=== PATIENT | male | born 1935 | race Caucasian/White ===

== ENCOUNTER 2022-09-13 19:37 | Outpatient (CLI) | payer BC, SELFPAY | END 2022-09-13 19:38 | disposition home or self-care (01) | LOC: AMB 10-05 17:37 | PROVIDERS: PCP Surgery; Visit Provider Emergency Medicine Emergency Medical Services | DX: R50.9 Fever, unspecified (principal); R06.09 Other forms of dyspnea | CPT/HCPCS: A0425; A0427 ==

== ENCOUNTER 2022-09-13 21:17 | Inpatient (IN) | payer BC, SELFPAY ==
[2022-09-13 21:26] VITALS: BP 142/113; PULSE 110; RESP 18; TEMP 37.9; O2SAT 93; BMI 37.9
--- NOTE | 2022-09-13 21:54 | CRLHL7_ITS ---
For Patients: As a result of the Century Cures Act, medical imaging exams and procedure reports are released immediately into your electronic medical record. You may view this report before your referring provider. If you have questions, please contact your health care provider. INDICATION: Cough. TECHNIQUE: Chest 2 views. COMPARISON: Chest x-ray from 08/11/2017. FINDINGS: Lungs: Clear lungs. No consolidation. Pleura: No pleural effusion or pneumothorax. Heart and Mediastinum: The cardiomediastinal silhouette is normal. The vessels are unremarkable. Stable dual lead pacemaker with its battery pack in the left chest wall. Bones: Unremarkable. IMPRESSION: No acute cardiopulmonary disease. Dictated by Moses Hooks MD @ 09/13/2022 10:53:13 PM (Electronically Signed)
[2022-09-13 22:16] VITALS: O2SAT 95
[2022-09-13 22:18] LABS: PCR FLU A Negative PCR FLU A (Negative); PCR FLU B Negative PCR FLU B (Negative); PCR RSV Negative PCR RSV (Negative)
[2022-09-13 22:19] LABS: SARS PCR* Negative SARS-CoV-2 (Negative)
[2022-09-13 22:20] LABS: Lactate* 4.9 mmol/L (0.5-1.9)
--- NOTE | 2022-09-13 22:20 | ED.NURSE ---
reister updated on lactate 4.9
[2022-09-13] MEDS: 0.9 % SODIUM CHLORIDE 1000 ml 1,000 ML IV (22:23)
[2022-09-13 22:41] LABS: Albumin* 4.4 g/dL (3.3-5.0)
[2022-09-13 22:42] LABS: Chloride* 107 mmol/L (96-114); Potassium* 4.7 mmol/L (3.6-5.1); Sodium* 139 mmol/L (135-149)
[2022-09-13 22:44] LABS: Aspartate Amino Transferase* 43 U/L (12-35); Carbon Dioxide* 19 mmol/L (20-32); Creatinine* 1.5 mg/dL (0.5-1.5); Est. Creatinine Clearance* 33.05; Estimated Glomerular Filt Rate 45 ml/min; Total Protein* 7.1 g/dL (6.0-8.3)
--- NOTE | 2022-09-13 22:44 | ED_ITS ---
HPI - Fever General Chief Complaint: Fever Stated Complaint: Fever Time Seen by Provider: 09/13/22 21:31 History of Present Illness HPI Narrative: Pt is an 87 year old gentleman who states that he is up to date on his COVID and Influenza vaccinations who presents with a 12 hour history of cough and weakness. Pt had previously been in his usual state of health. Pt lives with his of many years who states that she noticed that he had a fever of 102 earlier today. Pt describes no shortness of breath, chest pain, abd pain or change in his bowels or urination. Pt has no rash or skin breakdown. No sick contacts or travel. Pt did vomit upon arrival but states that he has not been vomiting at home. No pain noted. No change in sensorium. Related Data Home Medications Medication Instructions Recorded Confirmed acetaminophen 500 mg tablet 500 mg PO Q6H PRN 09/13/22 09/13/22 apixaban 2.5 mg tablet (Eliquis) 2.5 mg PO BID 09/13/22 09/13/22 citalopram 10 mg tablet 10 mg PO DAILY 09/13/22 09/13/22 diphenhydramine 25 1 tab PO QHS 09/13/22 09/13/22 mg-acetaminophen 500 mg tablet (Tylenol PM Extra Strength) metformin 850 mg tablet 850 mg PO BID 09/13/22 09/13/22 rosuvastatin 5 mg tablet 5 mg PO HS 09/13/22 09/13/22 Allergies Allergy/AdvReac Type Severity Reaction Status Date / Time No Known Drug Allergies Allergy Verified 09/13/22 23:28 Review of Systems Status of ROS Reports: 10 or more systems reviewed and unremarkable except as noted in History and below PFSH PFS Medical History (Updated 09/13/22 @ 22:54 by Gil Augustin MD) Colitis Diabetes Diverticulitis DVT (deep venous thrombosis) Hyperlipidemia Hypertension NSTEMI (non-ST elevated myocardial infarction) OSWALDO (obstructive sleep apnea) Osteoarthritis Pacemaker Spinal stenosis Surgical History (Updated 09/13/22 @ 22:54 by Gil Augustin MD) H/O hernia repair S/P CABG x 3 S/P cholecystectomy S/P small bowel resection Social History Smoking Status: Unknown if ever smoked Do you use any of these nicotine containing products: None How often do you have a drink containing alcohol: never AUDIT-C Alcohol total score: 0 Non-prescribed substance use: denies use Exam Narrative Exam Narrative: EXAM GENERAL: Patient appears frail and weak. EYES: No scleral icterus. THYROID: no thyroid nodules or thyromegaly. LYMPH: No supraclavicular or cervical lymphadenopathy. SKIN: Visible skin seen during exam normal or with benign process only. EXT: Chronic appearing 1+ lower extremity edema. HEART: Tachycardic with regular rate distant heart tones. LUNGS: Scattered rhonchi bilaterally ABD: Soft, non tender, non distended. PSYCH: Good eye contact, speech is not pressured. Const Vital Signs, click to edit/add: Vital Signs - 24 hr 09/13/22 21:26 09/13/22 22:16 Temperature 100.3 F H Pulse Rate [Pulse Oximeter] 110 H Respiratory Rate 18 Blood Pressure [Right Upper Arm] 142/113 H Pulse Oximetry 93 95 Oxygen Delivery Method Room Air Course Course Hospital Course: Pt noted to be febrile and tachycardic. CBC, CMP, BC X 2, Lactate, UA, Urine Culture, CXR, D dimer, EKG and troponin ordered. Viral swab collected. Normal saline bolus begun. Reevaluation(s) Reevaluation #1: At this time, laboratory is significant for a WBC of 13.2, a lactate of 4.9 and a D dimer of 1.32. Chest x ray is negative upon my review. Viral studies are negative. I have spoken with the hospitalist who is comfortable taking the pt after a CT of the chest PE protocol is performed. Time: 23:50 Vital Signs Vital signs: Initial Vital Signs Temperature 100.3 F H 09/13/22 21:26 Temperature Source Temporal Artery Scan 09/13/22 21:26 Pulse Rate 110 H 09/13/22 21:26 Respiratory Rate 18 09/13/22 21:26 Blood Pressure 142/113 H 09/13/22 21:26 Blood Pressure Mean 122 09/13/22 21:26 Pulse Oximetry 93 09/13/22 21:26 Oxygen Delivery Method 09/13/22 21:26 Vital Signs Temperature 100.3 F H 09/13/22 21:26 Pulse Rate 110 H 09/13/22 21:26 Respiratory Rate 18 09/13/22 21:26 Blood Pressure 142/113 H 09/13/22 21:26 Pulse Oximetry 93 09/13/22 21:26 Oxygen Delivery Method 09/13/22 21:26 Temperature 100.3 F H 09/13/22 21:26 Pulse Rate 110 H 09/13/22 21:26 Respiratory Rate 18 09/13/22 21:26 Blood Pressure 142/113 H 09/13/22 21:26 Pulse Oximetry 95 09/13/22 22:16 Oxygen Delivery Method 09/13/22 21:26 MDM - Fever MDM Narrative Medical decision making narrative: Pt is a frail 87 year old gentleman who presents with fever and tachycardia. Labs and x rays collected. CXR negative as are viral studies. Pt received aggressive hydration. Pt found to have a WBC of 13.2, a lactate of 4.9 and a D dimer of 1.32. PE study ordered. Although final diagnosis is still unclear. I do believe he needs admission. Case discussed with hospitalist who accepts pt as an admit. Differential Diagnosis Differential diagnosis: Likely fever of unknown origin, gastroenteritis, community acquired pneumonia, pyelonephritis, viral infection, sepsis and influenza Medical Records Attestation: I reviewed the patient's medical records. Lab Data Labs: Lab Results 09/13/22 09/13/22 09/13/22 Range/Units 21:37 22:05 22:05 WBC 13.20 H (4.50-11.00) K/uL RBC 4.67 (4.30-5.90) m/uL Hgb 14.8 (13.5-17.5) gm/dL Hct 44.1 (37.0-53.0) % MCV 94 (80-100) fL MCH 32 (26-34) pg MCHC 34 (32-36) gm/dL RDW Coeff of Brian 12.6 (11.5-15.5) % Plt Count 221 (140-440) K/uL Neut % (Auto) 90.4 H (42.0-72.0) % Lymph % (Auto) 2.6 L (20-44) % [place] % (Auto) 6.3 (0.0-11.0) % Eos % (Auto) 0.3 (0.0-7.0) % Baso % (Auto) 0.2 (0.0-3.0) % Neut # (Auto) 11.90 H (1.7-7.0) K/uL Lymph # (Auto) 0.30 L (0.90-2.90) K/uL [place] # (Auto) 0.80 (0.00-0.90) K/UL Eos # (Auto) 0.00 (0.00-0.50) K/uL Baso # (Auto) 0.00 (0.00-0.30) K/uL D-Dimer Quant (PE/DVT) (0.00-0.50) ug/ml Sodium 139 (135-149) mmol/L Potassium 4.7 (3.6-5.1) mmol/L Chloride 107 (96-114) mmol/L Carbon Dioxide 19 L (20-32) mmol/L BUN 25 (7-30) mg/dL Creatinine 1.5 (0.5-1.5) mg/dL Estimated Creat Clear 33.05 Estimated GFR 45 ml/min Glucose 195 H (60-115) mg/dL Lactate (0.5-1.9) mmol/L Calcium 9.2 (8.4-10.6) mg/dL Total Bilirubin 1.0 (0.1-1.5) mg/dL AST 43 H (12-35) U/L ALT 30 (4-50) U/L Alkaline Phosphatase 112 (40-150) U/L Troponin I (0.01-0.04) ng/mL Total Protein 7.1 (6.0-8.3) g/dL Albumin 4.4 (3.3-5.0) g/dL SARS-CoV-2 (PCR) Negative SARS-CoV-2 (Negative) Influenza Type A (PCR) Negative PCR FLU A (Negative) Influenza Type B (PCR) Negative PCR FLU B (Negative) RSV (PCR) Negative PCR RSV (Negative) 09/13/22 09/13/22 09/13/22 Range/Units 22:05 22:05 22:05 WBC (4.50-11.00) K/uL RBC (4.30-5.90) m/uL Hgb (13.5-17.5) gm/dL Hct (37.0-53.0) % MCV (80-100) fL MCH (26-34) pg MCHC (32-36) gm/dL RDW Coeff of Brian (11.5-15.5) % Plt Count (140-440) K/uL Neut % (Auto) (42.0-72.0) % Lymph % (Auto) (20-44) % [place] % (Auto) (0.0-11.0) % Eos % (Auto) (0.0-7.0) % Baso % (Auto) (0.0-3.0) % Neut # (Auto) (1.7-7.0) K/uL Lymph # (Auto) (0.90-2.90) K/uL [place] # (Auto) (0.00-0.90) K/UL Eos # (Auto) (0.00-0.50) K/uL Baso # (Auto) (0.00-0.30) K/uL D-Dimer Quant (PE/DVT) 1.32 H (0.00-0.50) ug/ml Sodium (135-149) mmol/L Potassium (3.6-5.1) mmol/L Chloride (96-114) mmol/L Carbon Dioxide (20-32) mmol/L BUN (7-30) mg/dL Creatinine (0.5-1.5) mg/dL Estimated Creat Clear Estimated GFR ml/min Glucose (60-115) mg/dL Lactate 4.9 H* (0.5-1.9) mmol/L Calcium (8.4-10.6) mg/dL Total Bilirubin (0.1-1.5) mg/dL AST (12-35) U/L ALT (4-50) U/L Alkaline Phosphatase (40-150) U/L Troponin I 0.04 (0.01-0.04) ng/mL Total Protein (6.0-8.3) g/dL Albumin (3.3-5.0) g/dL SARS-CoV-2 (PCR) (Negative) Influenza Type A (PCR) (Negative) Influenza Type B (PCR) (Negative) RSV (PCR) (Negative) Discharge Plan Discharge Clinical Impression: Fever Patient Disposition: Admitted As Inpatient Condition: Stable Activity Level: Other Discharge Diet: Other Prescriptions: No Action acetaminophen 500 mg tablet 500 mg PO Q6H PRN Label Comments: Take 1-2 Tablets (500-1,000 mg) by mouth every 6 hours if needed. Max of 3000 mg of acetaminophen/24 hours including use of tylenol PM Eliquis 2.5 mg tablet 2.5 mg PO BID Label Comments: Take 1 Tablet (2.5 mg) by mouth two times daily. citalopram 10 mg tablet 10 mg PO DAILY Label Comments: TAKE ONE TABLET BY MOUTH EVERY DAY IN THE MORNING. metformin 850 mg tablet 850 mg PO BID Label Comments: TAKE ONE TABLET BY MOUTH TWICE DAILY WITH FOOD diphenhydramine-acetaminophen [Tylenol PM Extra Strength] 25-500 mg tablet 1 tab PO QHS rosuvastatin 5 mg tablet 5 mg PO HS Label Comments: TAKE ONE TABLET BY MOUTH ONE TIME DAILY AT BEDTIME Follow Up/Referrals: Alec Nguyen MD [Primary Care Provider] -
[2022-09-13 22:45] LABS: Alanine Aminotransferase* 30 U/L (4-50); Alkaline Phosphatase* 112 U/L (40-150); Blood Urea Nitrogen* 25 mg/dL (7-30); Calcium* 9.2 mg/dL (8.4-10.6); Glucose* 195 mg/dL (60-115)
[2022-09-13 22:56] LABS: Basophils Percent Auto 0.2 % (0.0-3.0); Eosinophils Percent Auto 0.3 % (0.0-7.0); Hematocrit 44.1 % (37.0-53.0); Hemoglobin* 14.8 gm/dL (13.5-17.5); Immature Granulocytes Pct Auto 0.2 %; Lymphocytes Percent Auto 2.6 % (20-44); Mean Corpuscular HGB Conc 34 gm/dL (32-36); Mean Corpuscular Hemoglobin 32 pg (26-34); Mean Corpuscular Volume 94 fL (80-100); Monocytes Percent Auto 6.3 % (0.0-11.0); Neutrophils Percent Auto 90.4 % (42.0-72.0); Platelet Count* 221 K/uL (140-440); RDW Coefficient of Variation % 12.6 % (11.5-15.5); Red Blood Count 4.67 m/uL (4.30-5.90)
[2022-09-13 22:57] LABS: Troponin I* 0.04 ng/mL (0.01-0.04)
[2022-09-13 23:00] LABS: D Dimer Quantitative* 1.32 ug/ml (0.00-0.50)
[2022-09-13 23:10] LABS: Slide Review Reflex No
--- NOTE | 2022-09-13 23:16 | CRLHL7_ITS ---
For Patients: As a result of the Century Cures Act, medical imaging exams and procedure reports are released immediately into your electronic medical record. You may view this report before your referring provider. If you have questions, please contact your health care provider. INDICATION: . TECHNIQUE: CT chest PE was acquired with 100 cc Omnipaque 350 IV contrast. COMPARISON: None. FINDINGS: Heart and vasculature: Contrast opacification of the pulmonary arterial tree is adequate. No sign of pulmonary embolism. Heart size is normal. Aortic valve replacement. Coronary artery calcification and stents. Thoracic aorta and pulmonary artery are normal in caliber.Two lead left chest cardiac device with leads in the right atrium and left ventricle. Median sternotomy wires. Lungs and pleura: No suspicious nodules. No consolidation. No pleural effusions, pleural thickening, or pneumothorax. Lymph nodes/mediastinum: No mediastinal, hilar, or axillary adenopathy. Chest wall: No masses. Upper abdomen: Status post cholecystectomy. No abnormal biliary ductal dilatation. Nodular contour of the liver. 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 IMPRESSION: No pulmonary embolism. No acute findings in the chest. Nodular contour of the liver could represent cirrhosis. Please note that all CT scans at this facility use dose modulation, iterative reconstruction, and/or weight-based dosing when appropriate to reduce radiation dose to as low as reasonably achievable. Dictated by Jovanni Caldwell MD @ 09/14/2022 12:03:44 AM (Electronically Signed)
--- NOTE | 2022-09-13 23:21 | P.IMHP_ITS ---
Hospitalist- H&P: HPI History of Present Illness Date Seen: 09/14/22 Chief complaint: Fever Narrative: Miguel Sepulveda is a 87 year old male presented with his the emergency room today for concerns of illness. Patient has felt poorly for the last 1-2 days. He had a cough yesterday, then decreased appetite today. checked his blood sugar found to be in the 60s; she then fed him some baked beans with brown sugar and molasses, but he continued to feel poorly. She then checked his temperature and it was noted to be 102 temporally. She gave him Tylenol and brought him to the emergency room. Patient denies chest pain, headache, no abdominal pain, nausea, or dyspnea. No GI or symptoms. notes that patient has had febrile UTIs in the past without significant dysuria. ER Course and Findings: - emesis x1 on arrival, patient denied nausea or abdominal pain - patient was febrile and tachycardia upon arrival; improved after IVFs - no acute findings on EKG, paced rhythm. Troponin wnl - WBC 13 with PMN predominance - lactate 4.9, D-Dimer 1.32, troponin 0.04 - reassuring chest x-ray and CT angiogram of chest Past medical and surgical history updated below. Patient's PCP is Dr. Nguyne locally. Josefa lives at [address] [facility] [address] with his Doretha (medical decision maker if needed). Requests DNR/DNI status. Review of Systems Status of ROS: Reports: 10 or more systems reviewed and unremarkable except as noted in History and below Narrative: Patient specifically denies concerns as noted in HPI PFSH PFS Medical History (Updated 09/14/22 @ 00:28 by Rachael Gee MD) Cognitive impairment Colitis Diabetes Diverticulitis DVT of upper extremity (deep vein thrombosis) Hyperlipidemia Hypertension NSTEMI (non-ST elevated myocardial infarction) OSWALDO (obstructive sleep apnea) Osteoarthritis Pacemaker Spinal stenosis Surgical History (Updated 09/13/22 @ 23:56 by Rachael Gee MD) H/O hernia repair S/P CABG x 3 S/P cholecystectomy S/P small bowel resection Social History (Updated 09/14/22 @ 00:00 by Rachael Gee MD) Narrative: Lives with at [address] 3 grown children. No ETOH, no tobacco use. 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 DNR/DNI Smoking Status: Unknown if ever smoked Do you use any of these nicotine containing products: None How often do you have a drink containing alcohol: never AUDIT-C Alcohol total score: 0 Non-prescribed substance use: denies use Meds Home Medications and Allergies Home Medications Medication Instructions Recorded Confirmed Type acetaminophen 500 mg tablet 500 mg PO Q6H PRN 09/13/22 09/13/22 History apixaban 2.5 mg tablet (Eliquis) 2.5 mg PO BID 09/13/22 09/13/22 History citalopram 10 mg tablet 10 mg PO DAILY 09/13/22 09/13/22 History diphenhydramine 25 1 tab PO QHS 09/13/22 09/13/22 History mg-acetaminophen 500 mg tablet (Tylenol PM Extra Strength) metformin 850 mg tablet 850 mg PO BID 09/13/22 09/13/22 History rosuvastatin 5 mg tablet 5 mg PO HS 09/13/22 09/13/22 History Home Medication Comments: Confirmed with . Allergies Allergy/AdvReac Type Severity Reaction Status Date / Time No Known Drug Allergies Allergy Verified 09/13/22 23:28 Exam Narrative: Exam Narrative: GEN: Alert and laying comfortably in bed, appears ill but nontoxic HEENT: Normal external ears, EOMIs bilaterally CV: RRR, No concerning murmurs, rubs, or gallops R: LCTA bilaterally without concerning wheezing, rales, or rhonchi Ext: wwp, no concerning edema Skin: No concerning skin lesions or rashes on exposed skin of extremities or back Neuro: Intermittent tremor noted of bilateral upper extremities, more pronounced on the right. Stable and chronic based on chart review Psych: Mild cognitive impairment evident Const: Vital Signs, click to edit/add: Vital Signs - 24 hr 09/13/22 21:26 09/13/22 22:16 Temperature 100.3 F H Pulse Rate [Pulse Oximeter] 110 H Respiratory Rate 18 Blood Pressure [Ri ght Upper Arm] 142/113 H Pulse Oximetry 93 95 Oxygen Delivery Me thod Room Air Hospitalist - H&P: Result Labs Labs: Short CBC 09/13/22 Range/Units 22:05 WBC 13.20 H (4.50-11.00) K/uL Hgb 14.8 (13.5-17.5) gm/dL Hct 44.1 (37.0-53.0) % Plt Count 221 (140-440) K/uL BMP 09/13/22 22:05 Sodium 139 Potassium 4.7 Chloride 107 Carbon Dioxide 19 L BUN 25 Creatinine 1.5 Glucose 195 H Calcium 9.2 Cardiac Enzymes 09/13/22 Range/Units 22:05 Troponin I 0.04 (0.01-0.04) ng/mL Liver Function 09/13/22 Range/Units 22:05 Total Bilirubin 1.0 (0.1-1.5) mg/dL AST 43 H (12-35) U/L ALT 30 (4-50) U/L Alkaline Phosphatase 112 (40-150) U/L Albumin 4.4 (3.3-5.0) g/dL Assessment and Plan Assessment and plan (1) Fever: Problem comment: - ddx: UTI, viral illness. Negative COVID and influenza in the emergency department, no GI symptoms. Reassuring CT of chest - given history of UTI, will empirically treat with Zosyn, follow closely - urinalysis and culture pending Status: Acute (2) Elevated lactic acid level: Problem comment: - received 1 L of IVF in the ED, will continue IVFs and follow lactate Status: Acute (3) Leukocytosis: Status: Acute (4) Diabetes: Problem comment: - [id number], last A1c 6.4 (05/2022) - hold Metformin at this time given elevated lactate Status: Acute (5) Cognitive impairment: Problem comment: - lives [address] with , has Home Care following - no history of agitation Status: Acute Plan - per above - continue home Eliquis for prophylaxis - Doretha updated at the bedside, questions answered
[2022-09-13 23:57] VITALS: BP 126/83; PULSE 80; RESP 16; TEMP 37.3; O2SAT 95
--- NOTE | 2022-09-13 23:58 | ED.NURSE ---
eladio 141 from pt home monitor.
[2022-09-14] VITALS (12 sets, daily range): BP systolic 98–132; BP diastolic 52–85; PULSE 62–86; RESP 16–22; TEMP 36.2–37.6; O2SAT 90–96; BMI 33.3
--- NOTE | 2022-09-14 00:11 | ED.NURSE ---
report to delano CONNORSplastic surgery technician, pt to go to ccu1
[2022-09-14 00:49] LABS: Appearance Urine Cloudy (Clear); Bilirubin Urine Negative (Negative); Blood Urine Negative (Negative); Color Urine Yellow (Yellow); Glucose Urine Negative (Negative); Ketones Urine Trace (Negative); Leukocyte Esterase Urine 1+ (Negative); Nitrite Urine Positive (Negative); Protein Urine Negative (Negative); Specific Gravity Urine 1.015 (1.000-1.030); pH Urine 5.5 (5.0-8.5)
[2022-09-14 00:58] LABS: Bacteria Urine Many; RBC Urine 0-2 (0-2); Squamous Epithelial Cell Urine Few (None-Few)
[2022-09-14] MEDS: LACTATED RINGERS 1000 ML 1,000 ML 500 ML IV (00:59)
[2022-09-14] MEDS: PIPERACILLIN/TAZOBACTAM 3.375 GM in 0.9 % SODIUM CHLORIDE Mini-bag 100 ML IVPB ×4 (01:35→19:09)
--- NOTE | 2022-09-14 01:51 | PC.NURSE ---
Admission note: Pt admitted to room CCU1 via w/c from ED @ 0032 accompanied by (only able to stay 2 minutes as ride was here) dx: fever. Admission completed, questions answered, UA collected and sent, pt oriented to unit. Pt w/ dementia although able to follow simple commands and answer simple questions.
[2022-09-14] MEDS: LACTATED RINGERS 1000 ML 1,000 ML 125 ML IV (03:30)
[2022-09-14] MEDS: ONDANSETRON 2 MG/ML inj 4 MG IVP (06:47)
--- NOTE | 2022-09-14 09:03 | PM.IMPN1 ---
Progress Note: A&P Assessment and plan (1) Cognitive impairment: Problem details: - lives [address] with , has Home Care following - no history of agitation Status: Acute (2) Fever: Problem details: - ddx: UTI, viral illness. Negative COVID and influenza in the emergency department, no GI symptoms. Reassuring CT of chest - given history of UTI, will empirically treat with Zosyn, follow closely - urinalysis and culture pending Status: Acute (3) Leukocytosis: Status: Acute (4) Elevated lactic acid level: Problem details: - received 1 L of IVF in the ED, will continue IVFs and follow lactate Status: Acute (5) Diabetes: Problem details: - [id number], last A1c 6.4 (05/2022) - hold Metformin at this time given elevated lactate Status: Acute Plan Plan for 09/14 1. Severe Sepsis; presumed to be 2/2 to UTI; hemodynamics improving; lactate improving; continue zosyn; follow up cultures; continue IVF; recheck lactate 2. Mild elevated troponin 0.07 likely demand mediated ischemia; will not trend unless develops active cardiopulm symptoms 3. BMP pending has been added on spoke with lab Code: DNR/DNI DVT ppx: on eliquis (hx of DVT); dc SCD Time Spent With Patient Total time spent: 30 Subjective Date Seen: 09/14/22 Interval history: patient at bedside this morning She is sleepy and tired wasn't able to sleep much last night patient sleeping overnight events reviewed delay in AM labs as patient had refused labs Lactate trending down, WBC and hemodynamics improving Exam Narrative: Exam Narrative: gen: NAD HEENT: NCAT CV: RRR s1 s2 lctab abd: soft, nt, nd Const: Vital Signs, click to edit/add: Vital Signs - 24 hr 09/13/22 21:26 09/13/22 22:16 09/13/22 23:57 Temperature 100.3 F H 99.2 F Pulse Rate Pulse Rate [Pulse Oximeter] 110 H 80 Respiratory Rate 18 16 Blood Pressure [Le ft Arm] Blood Pressure [Ri ght Upper Arm] 142/113 H 126/83 Pulse Oximetry 93 95 95 Oxygen Delivery Me thod Room Air Room Air 09/14/22 00:35 09/14/22 00:50 09/14/22 00:45 Temperature 99.6 F Pulse Rate 78 Pulse Rate [Pulse Oximeter] 86 Respiratory Rate 20 Blood Pressure [Le ft Arm] 132/84 Blood Pressure [Ri ght Upper Arm] Pulse Oximetry 96 96 Oxygen Delivery Me thod Room Air Room Air 09/14/22 03:30 09/14/22 08:08 09/14/22 07:00 Temperature 99.2 F Pulse Rate 78 Pulse Rate [Pulse Oximeter] 76 81 Respiratory Rate 16 22 Blood Pressure [Le ft Arm] 119/85 Blood Pressure [Ri ght Upper Arm] Pulse Oximetry 96 Oxygen Delivery Me thod Room Air 09/14/22 07:00 09/14/22 07:00 Temperature 98.8 F Pulse Rate Pulse Rate [Pulse Oximeter] 81 Respiratory Rate 22 22 Blood Pressure [Le ft Arm] 113/52 L Blood Pressure [Ri ght Upper Arm] Pulse Oximetry 90 90 Oxygen Delivery Me thod Room Air Room Air Labs Labs: Laboratory Results - last 24 hr 09/13/22 09/13/22 09/13/22 21:37 22:05 22:05 WBC 13.20 H RBC 4.67 Hgb 14.8 Hct 44.1 MCV 94 MCH 32 MCHC 34 RDW Coeff of Brian 12.6 Plt Count 221 Neut % (Auto) 90.4 H Lymph % (Auto) 2.6 L [place] % (Auto) 6.3 Eos % (Auto) 0.3 Baso % (Auto) 0.2 Neut # (Auto) 11.90 H Lymph # (Auto) 0.30 L [place] # (Auto) 0.80 Eos # (Auto) 0.00 Baso # (Auto) 0.00 D-Dimer Quant (PE/DVT) Sodium 139 Potassium 4.7 Chloride 107 Carbon Dioxide 19 L BUN 25 Creatinine 1.5 Estimated Creat Clear 33.05 Estimated GFR 45 Glucose 195 H Lactate Calcium 9.2 Total Bilirubin 1.0 AST 43 H ALT 30 Alkaline Phosphatase 112 Troponin I Total Protein 7.1 Albumin 4.4 Urine Color Urine Appearance Urine pH Ur Specific [place] Urine Protein Urine Glucose (UA) Urine Ketones Urine Blood Urine Nitrite Urine Bilirubin Urine Urobilinogen Ur Leukocyte Esterase Urine RBC Urine WBC Ur Squamous Epith Cells Urine Bacteria SARS-CoV-2 (PCR) Negative SARS-CoV-2 Influenza Type A (PCR) Negative PCR FLU A Influenza Type B (PCR) Negative PCR FLU B RSV (PCR) Negative PCR RSV 09/13/22 09/13/22 09/13/22 22:05 22:05 22:05 WBC RBC Hgb Hct MCV MCH MCHC RDW Coeff of Brian Plt Count Neut % (Auto) Lymph % (Auto) [place] % (Auto) Eos % (Auto) Baso % (Auto) Neut # (Auto) Lymph # (Auto) [place] # (Auto) Eos # (Auto) Baso # (Auto) D-Dimer Quant (PE/DVT) 1.32 H Sodium Potassium Chloride Carbon Dioxide BUN Creatinine Estimated Creat Clear Estimated GFR Glucose Lactate 4.9 H* Calcium Total Bilirubin AST ALT Alkaline Phosphatase Troponin I 0.04 Total Protein Albumin Urine Color Urine Appearance Urine pH Ur Specific [place] Urine Protein Urine Glucose (UA) Urine Ketones Urine Blood Urine Nitrite Urine Bilirubin Urine Urobilinogen Ur Leukocyte Esterase Urine RBC Urine WBC Ur Squamous Epith Cells Urine Bacteria SARS-CoV-2 (PCR) Influenza Type A (PCR) Influenza Type B (PCR) RSV (PCR) 09/14/22 00:30 WBC RBC Hgb Hct MCV MCH MCHC RDW Coeff of Brian Plt Count Neut % (Auto) Lymph % (Auto) [place] % (Auto) Eos % (Auto) Baso % (Auto) Neut # (Auto) Lymph # (Auto) [place] # (Auto) Eos # (Auto) Baso # (Auto) D-Dimer Quant (PE/DVT) Sodium Potassium Chloride Carbon Dioxide BUN Creatinine Estimated Creat Clear Estimated GFR Glucose Lactate Calcium Total Bilirubin AST ALT Alkaline Phosphatase Troponin I Total Protein Albumin Urine Color Yellow Urine Appearance Cloudy A Urine pH 5.5 Ur Specific [place] 1.015 Urine Protein Negative Urine Glucose (UA) Negative Urine Ketones Trace A Urine Blood Negative Urine Nitrite Positive A Urine Bilirubin Negative Urine Urobilinogen 1.0 Ur Leukocyte Esterase 1+ A Urine RBC 0-2 Urine WBC 5-10 A Ur Squamous Epith Cells Few Urine Bacteria Many A SARS-CoV-2 (PCR) Influenza Type A (PCR) Influenza Type B (PCR) RSV (PCR)
[2022-09-14] MEDS: CITALOPRAM HYDROBROMIDE 20 MG TABLET 10 MG PO (09:17)
[2022-09-14] MEDS: APIXABAN 5 MG TABLET 2.5 MG PO ×2 (09:18→21:46)
[2022-09-14 10:22] LABS: HCO3 VBG 26 mmol/L (21-28); Lactate* 2.7 mmol/L (0.5-1.9); PCO2 VBG 47 mmHG (40-50); pH VBG 7.346 (7.32-7.43)
[2022-09-14 10:37] LABS: Basophils Absolute Auto 0.02 K/uL (0.00-0.30); Basophils Percent Auto 0.2 % (0.0-3.0); Eosinophils Absolute Auto 0.01 K/uL (0.00-0.50); Eosinophils Percent Auto 0.1 % (0.0-7.0); Hematocrit 41.5 % (37.0-53.0); Hemoglobin* 13.7 gm/dL (13.5-17.5); Immature Granulocytes Abs Auto 0.02 K/uL (0.00-0.30); Immature Granulocytes Pct Auto 0.2 %; Mean Corpuscular HGB Conc 33 gm/dL (32-36); Mean Corpuscular Hemoglobin 32 pg (26-34); Mean Corpuscular Volume 96 fL (80-100); Monocytes Percent Auto 5.8 % (0.0-11.0); Neutrophils Percent Auto 88.7 % (42.0-72.0); Platelet Count* 171 K/uL (140-440); RDW Coefficient of Variation % 12.8 % (11.5-15.5); Red Blood Count 4.34 m/uL (4.30-5.90); White Blood Count* 8.84 K/uL (4.50-11.00)
[2022-09-14 10:39] LABS: Slide Review Reflex No
[2022-09-14 11:08] LABS: Troponin I* 0.07 ng/mL (0.01-0.04)
[2022-09-14 12:23] LABS: Chloride* 107 mmol/L (96-114); Potassium* 4.7 mmol/L (3.6-5.1); Sodium* 139 mmol/L (135-149)
[2022-09-14 12:26] LABS: Blood Urea Nitrogen* 21 mg/dL (7-30); Carbon Dioxide* 22 mmol/L (20-32); Creatinine* 1.5 mg/dL (0.5-1.5); Est. Creatinine Clearance* 33.05; Estimated Glomerular Filt Rate 45 ml/min
[2022-09-14 12:27] LABS: Calcium* 8.7 mg/dL (8.4-10.6); Glucose* 168 mg/dL (60-115)
[2022-09-14] MEDS: LACTATED RINGERS 1000 ML 1,000 ML 100 ML IV ×2 (12:31→22:29)
[2022-09-14] MEDS: ACETAMINOPHEN 325 MG TABLET 975 MG PO (13:13)
[2022-09-14 16:30] LABS: Lactate Sepsis w/Reflex* 1.5 mmol/L (0.5-1.9)
--- NOTE | 2022-09-14 17:31 | PC.NURSE ---
Pt oriented to self and place. Pt has dementia but is able to follow commands. When repositioning pt says ouch but appears comfortable at rest. When asked about pain Pt states no. Pt is afebrile but drowsy. Pt is up with SBA. Pt has decreased appetite but has been tolerating drinking ensures. Pt has BS monitoring implant in left upper arm and a pacemaker.
[2022-09-14 18:36] LABS: Lactate Sepsis 2 Hour 2.4 mmol/L (0.5-1.9)
[2022-09-14] MEDS: 0.9 % SODIUM CHLORIDE 250 ml IV (19:09)
[2022-09-14] MEDS: ROSUVASTATIN CALCIUM 10 MG TABLET 5 MG PO (21:46)
--- NOTE | 2022-09-14 22:21 | PC.NURSE ---
End of Shift: Patient pleasant and cooperative. Afebrile. Denies pain. Up to bathroom and chair with 1 assist, walker and gait belt. Tolerating regular diet with no nausea. Scabs noted to left buttock, patient and states have been present for a while, mepilex applied.
[2022-09-15] VITALS (11 sets, daily range): BP systolic 116–127; BP diastolic 70–78; PULSE 56–88; RESP 16–20; TEMP 36.5–37.3; O2SAT 91–94
[2022-09-15] MEDS: PIPERACILLIN/TAZOBACTAM 3.375 GM in 0.9 % SODIUM CHLORIDE Mini-bag 100 ML IVPB ×2 (01:42→08:43)
--- NOTE | 2022-09-15 06:45 | PC.NURSE ---
: Pt's blood cultures lab reported are all positive gram cocci in clusters, marco lloyd was alerted and stated zosyn will cover it. Rested all night w/ cpap, up once, confused to place thus reoriented, pt agreeable and thankful, calm/cooperative. VSS on RA. Still weak, ax1 to br.
[2022-09-15 06:52] LABS: Basophils Absolute Auto 0.02 K/uL (0.00-0.30); Basophils Percent Auto 0.3 % (0.0-3.0); Eosinophils Absolute Auto 0.03 K/uL (0.00-0.50); Eosinophils Percent Auto 0.5 % (0.0-7.0); Hematocrit 38.9 % (37.0-53.0); Hemoglobin* 12.9 gm/dL (13.5-17.5); Immature Granulocytes Abs Auto 0.02 K/uL (0.00-0.30); Immature Granulocytes Pct Auto 0.3 %; Lymphocytes Percent Auto 9.5 % (20-44); Mean Corpuscular HGB Conc 33 gm/dL (32-36); Mean Corpuscular Hemoglobin 32 pg (26-34); Mean Corpuscular Volume 96 fL (80-100); Monocytes Percent Auto 12.8 % (0.0-11.0); Neutrophils Percent Auto 76.6 % (42.0-72.0); Platelet Count* 154 K/uL (140-440); Red Blood Count 4.07 m/uL (4.30-5.90)
[2022-09-15 07:03] LABS: Slide Review Reflex No
[2022-09-15 07:33] LABS: Chloride* 105 mmol/L (96-114); Potassium* 4.3 mmol/L (3.6-5.1); Sodium* 139 mmol/L (135-149)
[2022-09-15 07:36] LABS: Blood Urea Nitrogen* 20 mg/dL (7-30); Carbon Dioxide* 28 mmol/L (20-32); Creatinine* 1.5 mg/dL (0.5-1.5); Est. Creatinine Clearance* 33.05; Estimated Glomerular Filt Rate 45 ml/min
[2022-09-15 07:37] LABS: Calcium* 8.5 mg/dL (8.4-10.6); Glucose* 129 mg/dL (60-115)
[2022-09-15] MEDS: LACTATED RINGERS 1000 ML 1,000 ML 100 ML IV (08:41)
[2022-09-15] MEDS: 0.9 % SODIUM CHLORIDE 250 ml IV (08:48)
[2022-09-15] MEDS: CITALOPRAM HYDROBROMIDE 20 MG TABLET 10 MG PO (09:51)
[2022-09-15] MEDS: APIXABAN 5 MG TABLET 2.5 MG PO ×2 (09:52→20:49)
--- NOTE | 2022-09-15 11:22 | PC.NURSE ---
just ate breakfast
[2022-09-15] MEDS: CARBIDOPA-LEVODOPA 25-100 TABLET 1 TAB PO ×2 (11:24→17:42)
--- NOTE | 2022-09-15 12:27 | PC.NURSE ---
End of shift note: Patient is up with SBA and walker. Has ambulated to the BR and then is currently sitting up in the recliner sleeping. No complaints of anything noted. Did not want his vitals taken at lunch time. Will continue to monitor.
--- NOTE | 2022-09-15 12:30 | PM.IMPN1 ---
Progress Note: A&P Assessment and plan (1) Fever: Problem details: - ddx: UTI, viral illness. Negative COVID and influenza in the emergency department, no GI symptoms. Reassuring CT of chest - given history of UTI, will empirically treat with Zosyn, follow closely - urinalysis and culture pending Status: Acute (2) Cognitive impairment: Problem details: - lives at [address] , has Home Care following - no history of agitation Status: Acute (3) Elevated lactic acid level: Problem details: Due to febrile illness, sepsis Status: Acute (4) Diabetes: Problem details: - [id number], last A1c 6.4 (05/2022) - monitor blood sugars Resume low-dose metformin as he is now eating and lactate is improving Status: Acute (5) Bacteremia: Problem details: Gram-positive cocci in 1 of 2 blood cultures. Start vancomycin, repeat cultures, obtain echocardiogram, watch for focus of infection. Status: Acute (6) Parkinsonian features: Problem details: Slowly progressive coarse resting tremor of the right upper extremity and sometimes of the left. Appears parkinsonian. No previous diagnosis or treatment. Trial of Sinemet Status: Acute (7) Heart murmur: Problem details: Obtain echo Status: Acute Plan Continue in hospital for treatment of bacteremia and evaluating for source of infection. Continue treatment of UTI. Will also give a trial Sinemet for apparent parkinsonian is a move. Ongoing therapy to assess functional status inability to return to independent living with his . Time Spent With Patient Total time spent: Total time spent today is 60 minutes, 40 minutes in coordination of care and discussing with patient other providers management of bacteremia fever and disability. Subjective Date Seen: 09/15/22 Interval history: 87-year-old male admitted to the hospital with fever. His is his primary caregiver and gives his history. They live independently at [address] At the time of admission he had fever and weakness and was not himself. There were no focal symptoms or signs of infection. He is admitted to the hospital with abnormal urinalysis. He has subsequently grown out E coli which is sensitive to all antibiotics except quinolones. He has been on Zosyn for this. Last night 1 of 2 of his blood cultures turned positive for Gram-positive cocci. He has now been switched to vancomycin for his bacteremia and Keflex for his E coli UTI. Patient has no complaints today. His reports he has generally looking better than on admission Exam Narrative: Exam Narrative: He is alert and appears in no distress. He is pleasant and cooperative. Head is normal. Oropharynx normal. Neck is supple without mass or adenopathy. Respirations are clear to auscultation. Cardiovascular: S1, S2, 2/6 systolic murmur. Regular rate and rhythm. Abdomen is soft without tenderness or mass. Skin is examined. He has grade 1 pressure ulcer changes on his sacrum covered by Mepilex. He has a couple chronic excoriated papules on each leg. These do not appear to be infected. Primarily postinflammatory hyperpigmentation. No other skin lesions or nail lesions. No other focus of pain in his spine. 1+ edema in his left foot trace edema in his right. He moves all 4 extremities well. Const: Vital Signs, click to edit/add: Vital Signs - 24 hr 09/14/22 15:29 09/14/22 15:45 09/14/22 15:45 Temperature Pulse Rate 62 Pulse Rate [Pulse Oximeter] 63 Respiratory Rate 20 20 Blood Pressure [Le ft Arm] Blood Pressure [Ri ght Arm] Pulse Oximetry 95 Oxygen Delivery Me thod Room Air 09/14/22 15:45 09/14/22 19:00 09/14/22 22:59 Temperature 97.2 F L 98.8 F Pulse Rate Pulse Rate [Pulse Oximeter] 63 73 Respiratory Rate 20 18 18 Blood Pressure [Le ft Arm] 98/52 L Blood Pressure [Ri ght Arm] 110/57 L Pulse Oximetry 95 95 95 Oxygen Delivery Me thod Room Air Room Air Room Air 09/15/22 01:36 09/15/22 01:37 09/15/22 04:55 Temperature 97.7 F 97.9 F Pulse Rate Pulse Rate [Pulse Oximeter] 71 72 Respiratory Rate 18 18 18 Blood Pressure [Le ft Arm] Blood Pressure [Ri ght Arm] 116/75 125/71 Pulse Oximetry 91 93 Oxygen Delivery Me thod CPAP CPAP 09/14/22 23:00 09/15/22 07:00 09/15/22 07:00 Temperature 98.8 F Pulse Rate 73 Pulse Rate [Pulse Oximeter] 76 Respiratory Rate 16 Blood Pressure [Le ft Arm] 123/70 Blood Pressure [Ri ght Arm] Pulse Oximetry 93 93 Oxygen Delivery Me thod Room Air Room Air 09/15/22 07:00 09/15/22 09:57 Temperature Pulse Rate 71 Pulse Rate [Pulse Oximeter] 76 Respiratory Rate 16 Blood Pressure [Le ft Arm] Blood Pressure [Ri ght Arm] Pulse Oximetry Oxygen Delivery Me thod Documenting provider has reviewed patient's vital signs: yes Labs Labs: Laboratory Results - last 24 hr 09/14/22 09/14/22 09/15/22 10:05 16:17 05:57 WBC 5.80 RBC 4.07 L Hgb 12.9 L Hct 38.9 MCV 96 MCH 32 MCHC 33 RDW Coeff of Brian 13.0 Plt Count 154 Neut % (Auto) 76.6 H Lymph % (Auto) 9.5 L [place] % (Auto) 12.8 H Eos % (Auto) 0.5 Baso % (Auto) 0.3 Neut # (Auto) 4.40 Lymph # (Auto) 0.60 L [place] # (Auto) 0.70 Eos # (Auto) 0.03 Baso # (Auto) 0.02 Sodium 139 Potassium 4.7 Chloride 107 Carbon Dioxide 22 BUN 21 Creatinine 1.5 Estimated Creat Clear 33.05 Estimated GFR 45 Glucose 168 H Venous Lactic Acid (Serial Order) Calcium 8.7 09/15/22 05:57 WBC RBC Hgb Hct MCV MCH MCHC RDW Coeff of Brian Plt Count Neut % (Auto) Lymph % (Auto) [place] % (Auto) Eos % (Auto) Baso % (Auto) Neut # (Auto) Lymph # (Auto) [place] # (Auto) Eos # (Auto) Baso # (Auto) Sodium 139 Potassium 4.3 Chloride 105 Carbon Dioxide 28 BUN 20 Creatinine 1.5 Estimated Creat Clear 33.05 Estimated GFR 45 Glucose 129 H Venous Lactic Acid (Serial Order) Calcium 8.5
[2022-09-15] MEDS: cephALEXin 500 MG CAPSULE PO ×3 (13:51→20:49)
[2022-09-15] MEDS: PERFLUTREN LIPID MICROSPHERES 2 ML VIAL IV (16:20)
[2022-09-15] MEDS: METFORMIN ER 500 MG PO (17:42)
[2022-09-15] MEDS: ROSUVASTATIN CALCIUM 10 MG TABLET 5 MG PO (20:49)
[2022-09-15] MEDS: ACETAMINOPHEN 325 MG TABLET 975 MG PO (21:02)
[2022-09-16] VITALS (7 sets, daily range): BP systolic 120–138; BP diastolic 65–73; PULSE 50–71; RESP 18–20; TEMP 36.6–37; O2SAT 94–98
--- NOTE | 2022-09-16 06:32 | PC.NURSE ---
End of shift status [id number] Pt alert and oriented, but forgetful. Pleasant and cooperative. PRN tylenol given for mild chronic back pain. BP stable. Remains on room air. HS glucose 172. Telemetry monitoring, paced rhythm. Up with assist of 1 and walker to bathroom. Wearing CPAP overnight. stayed the night. Pt observed resting throughout night.
[2022-09-16 06:44] LABS: Lactate* 0.8 mmol/L (0.5-1.9)
[2022-09-16 06:51] LABS: Basophils Percent Auto 0.2 % (0.0-3.0); Eosinophils Percent Auto 6.5 % (0.0-7.0); Hematocrit 37.7 % (37.0-53.0); Hemoglobin* 12.6 gm/dL (13.5-17.5); Immature Granulocytes Pct Auto 0.4 %; Lymphocytes Percent Auto 18.1 % (20-44); Mean Corpuscular HGB Conc 33 gm/dL (32-36); Mean Corpuscular Hemoglobin 32 pg (26-34); Mean Corpuscular Volume 95 fL (80-100); Monocytes Percent Auto 15.4 % (0.0-11.0); Neutrophils Percent Auto 59.4 % (42.0-72.0); Platelet Count* 147 K/uL (140-440); RDW Coefficient of Variation % 13.1 % (11.5-15.5); Red Blood Count 3.95 m/uL (4.30-5.90); White Blood Count* 4.47 K/uL (4.50-11.00)
[2022-09-16 07:02] LABS: Slide Review Reflex No
[2022-09-16 07:05] LABS: Chloride* 109 mmol/L (96-114); Potassium* 4.1 mmol/L (3.6-5.1); Sodium* 139 mmol/L (135-149)
[2022-09-16 07:07] LABS: Creatinine* 1.4 mg/dL (0.5-1.5); Est. Creatinine Clearance* 35.41; Estimated Glomerular Filt Rate 49 ml/min
[2022-09-16 07:08] LABS: Blood Urea Nitrogen* 21 mg/dL (7-30); Carbon Dioxide* 26 mmol/L (20-32); Glucose* 123 mg/dL (60-115)
[2022-09-16 07:09] LABS: Calcium* 8.3 mg/dL (8.4-10.6)
[2022-09-16 07:11] LABS: C Reactive Protein* 5.8 mg/dL (0.5-1.0)
[2022-09-16] MEDS: CARBIDOPA-LEVODOPA 25-100 TABLET 1 TAB PO ×3 (08:08→18:02)
[2022-09-16] MEDS: METFORMIN ER 500 MG PO ×2 (08:08→18:02)
[2022-09-16] MEDS: APIXABAN 5 MG TABLET 2.5 MG PO ×2 (08:35→21:58)
[2022-09-16] MEDS: CITALOPRAM HYDROBROMIDE 20 MG TABLET 10 MG PO (08:35)
[2022-09-16] MEDS: cephALEXin 500 MG CAPSULE PO ×4 (08:36→21:57)
[2022-09-16] MEDS: 0.9 % SODIUM CHLORIDE 250 ml IV (11:00)
--- NOTE | 2022-09-16 11:55 | PM.IMPN1 ---
Progress Note: A&P Assessment and plan (1) Fever: Problem details: Initially felt to be due to UTI. Now possibly due to bacteremia without an obvious source. Culture and sensitivity pending. Treating UTI with Keflex and Gram-positive cocci bacteremia with vancomycin Status: Acute (2) Cognitive impairment: Problem details: - lives at [address] with , has Home Care following Status: Acute (3) Elevated lactic acid level: Problem details: Due to febrile illness, sepsis. Resolved Status: Acute (4) Diabetes: Problem details: - [id number], last A1c 6.4 (05/2022) - monitor blood sugars Resume low-dose metformin as he is now eating and lactate is improving Status: Acute (5) Bacteremia: Problem details: Gram-positive cocci in 1 of 2 blood cultures. Start vancomycin, repeat cultures, watch for focus of infection. Status: Acute (6) Parkinsonian features: Problem details: Slowly progressive coarse resting tremor of the right upper extremity and sometimes of the left. Appears parkinsonian. No previous diagnosis or treatment. Trial of Sinemet. No obvious improvement in tremor today. Status: Acute (7) Severe aortic stenosis: Problem details: Recommend outpatient Cardiology follow-up for consideration of TAVR. Status: Acute Plan Continue in hospital for IV antibiotics pending ID and sensitivity of blood culture. Continue to have patient work with therapy to improve mobility and functional independence. Time Spent With Patient Total time spent: Total time spent today is 40 minutes, 30 minutes in coordination care and discussing with patient, his and other providers management of disability, aortic stenosis, bacteremia, UTI Subjective Date Seen: 09/16/22 Interval history: 87-year-old male seen in followup of fever and weakness in the context of a urinary infection and now positive blood culture. Patient reports continued to improve overall. He feels stronger. His feels like he is closer to baseline. Blood culture results still pending ID and sensitivity. Echocardiogram on preliminary report shows severe aortic stenosis and reduced LV function. This likely represents a fairly serious problem for the patient. He does have a history of exercise intolerance. The aortic stenosis is likely a contributor to that. Consider Cardiology consult for TAVR when he has recovered from this illness. Exam Narrative: Exam Narrative: He is alert and pleasant. More verbal and conversational today. Respirations are clear to auscultation. Cardiovascular: S1, S2, 2/6 systolic ejection murmur. No gallop or rub. Abdomen: Bowel sounds active. Abdomen is soft without tenderness or mass. Extremities with trace edema. He has support hose in place. He has no skin lesions identified Const: Vital Signs, click to edit/add: Vital Signs - 24 hr 09/15/22 16:01 09/15/22 15:00 09/15/22 15:00 Temperature Pulse Rate 62 Pulse Rate [Pulse Oximeter] 65 Respiratory Rate 18 Blood Pressure [Le ft Arm] Blood Pressure [Ri ght Arm] Pulse Oximetry 93 Oxygen Delivery Me thod Room Air 09/15/22 16:00 09/15/22 20:10 09/15/22 23:21 Temperature 98.1 F 99.2 F Pulse Rate Pulse Rate [Pulse Oximeter] 65 88 Respiratory Rate 18 20 20 Blood Pressure [Le ft Arm] Blood Pressure [Ri ght Arm] 127/78 124/77 Pulse Oximetry 93 94 Oxygen Delivery Me thod Room Air Room Air 09/15/22 23:21 09/15/22 23:18 09/16/22 01:00 Temperature 98.3 F Pulse Rate 56 L Pulse Rate [Pulse Oximeter] 60 Respiratory Rate 20 18 Blood Pressure [Le ft Arm] 120/68 Blood Pressure [Ri ght Arm] Pulse Oximetry 94 94 Oxygen Delivery Me thod Room Air CPAP 09/16/22 07:29 09/16/22 07:00 09/16/22 07:00 Temperature 97.9 F Pulse Rate 50 L Pulse Rate [Pulse Oximeter] 65 Respiratory Rate 20 20 Blood Pressure [Le ft Arm] Blood Pressure [Ri ght Arm] 134/72 Pulse Oximetry 97 97 Oxygen Delivery Me thod Room Air 09/16/22 11:00 Temperature 98.1 F Pulse Rate Pulse Rate [Pulse Oximeter] 65 Respiratory Rate 18 Blood Pressure [Le ft Arm] Blood Pressure [Ri ght Arm] 129/66 Pulse Oximetry 98 Oxygen Delivery Me thod Room Air Documenting provider has reviewed patient's vital signs: yes Labs Labs: Laboratory Results - last 24 hr 09/16/22 09/16/22 09/16/22 06:00 06:10 06:10 WBC 4.47 L RBC 3.95 L Hgb 12.6 L Hct 37.7 MCV 95 MCH 32 MCHC 33 RDW Coeff of Brian 13.1 Plt Count 147 Neut % (Auto) 59.4 Lymph % (Auto) 18.1 L [place] % (Auto) 15.4 H Eos % (Auto) 6.5 Baso % (Auto) 0.2 Neut # (Auto) 2.70 Lymph # (Auto) 0.80 L [place] # (Auto) 0.70 Eos # (Auto) 0.30 Baso # (Auto) 0.00 Sodium 139 Potassium 4.1 Chloride 109 Carbon Dioxide 26 BUN 21 Creatinine 1.4 Estimated Creat Clear 35.41 Estimated GFR 49 Glucose 123 H Lactate 0.8 Calcium 8.3 L C-Reactive Protein 5.8 H
--- NOTE | 2022-09-16 14:44 | PM.EN ---
Chart Event Note Time Seen by Provider: 14:30 Date Seen: 09/16/22 Chart Event Note: I returned a telephone call to patient's daughter, Francheska, per patient's request. Francheska's telephone number is [phone]. I updated her on her father's situation, condition, and some of our current efforts. She was appreciative of the update. She indicated that her father, her mother, and herself are grateful for current efforts to help her father. She also made it clear that they are not interested in pursuing any additional diagnostic or interventional efforts in regards to the diagnosis of aortic stenosis at this time, and likely not in the future either. They would prefer a supportive approach, or palliative approach, in regard to the aortic stenosis. I explained that if the patient does in fact have true gram positive bacteremia that we would be very concerned that he might have bacterial endocarditis. She indicated that even if he does have bacterial endocarditis that likely they would still not want surgical or interventional efforts. This is as far as the conversation went at this point. I did not discuss IV antibiotic therapy for bacterial endocarditis, since we do not have this diagnosis at this time.
--- NOTE | 2022-09-16 14:55 | PC.NURSE ---
Pt alert and oriented to self and place. Afebrile. Denies pain and N/V. Pt up Assist 1 with walker and gait belt. Tolerating regular diet.
[2022-09-16] MEDS: ROSUVASTATIN CALCIUM 10 MG TABLET 5 MG PO (21:57)
[2022-09-17] VITALS (8 sets, daily range): BP systolic 120–147; BP diastolic 61–84; PULSE 59–78; RESP 16–18; TEMP 36.5–37.2; O2SAT 92–96
[2022-09-17] MEDS: ACETAMINOPHEN 325 MG TABLET 975 MG PO (04:40)
--- NOTE | 2022-09-17 06:14 | PC.NURSE ---
End of shift status [id number] Pt alert and oriented but forgetful. Pleasant and cooperative. rooming in overnight. VSS on room air. Wearing CPAP intermittently overnight. Telemetry monitoring, paced rhythm. HS glucose 181. Up with stand by and walker to bathroom. PRN tylenol given for chronic back pain. Intermittent resting throughout night.
[2022-09-17] MEDS: METFORMIN ER 500 MG PO ×2 (08:33→18:50)
[2022-09-17] MEDS: APIXABAN 5 MG TABLET 2.5 MG PO ×2 (08:33→20:55)
[2022-09-17] MEDS: cephALEXin 500 MG CAPSULE PO ×4 (08:33→20:57)
[2022-09-17] MEDS: CARBIDOPA-LEVODOPA 25-100 TABLET 1 TAB PO ×3 (08:33→18:50)
[2022-09-17] MEDS: CITALOPRAM HYDROBROMIDE 20 MG TABLET 10 MG PO (08:34)
[2022-09-17 09:15] LABS: Basophils Absolute Auto 0.03 K/uL (0.00-0.30); Basophils Percent Auto 0.6 % (0.0-3.0); Eosinophils Absolute Auto 0.21 K/uL (0.00-0.50); Eosinophils Percent Auto 4.2 % (0.0-7.0); Hematocrit 38.5 % (37.0-53.0); Hemoglobin* 12.7 gm/dL (13.5-17.5); Immature Granulocytes Abs Auto 0.03 K/uL (0.00-0.30); Immature Granulocytes Pct Auto 0.6 %; Lymphocytes Percent Auto 18.1 % (20-44); Mean Corpuscular HGB Conc 33 gm/dL (32-36); Mean Corpuscular Hemoglobin 31 pg (26-34); Mean Corpuscular Volume 95 fL (80-100); Monocytes Percent Auto 12.7 % (0.0-11.0); Neutrophils Percent Auto 63.8 % (42.0-72.0); Platelet Count* 145 K/uL (140-440); RDW Coefficient of Variation % 12.6 % (11.5-15.5); Red Blood Count 4.05 m/uL (4.30-5.90); White Blood Count* 5.02 K/uL (4.50-11.00)
[2022-09-17 09:16] LABS: Slide Review Reflex No
[2022-09-17 10:17] LABS: Chloride* 108 mmol/L (96-114); Sodium* 141 mmol/L (135-149)
[2022-09-17 10:20] LABS: Blood Urea Nitrogen* 19 mg/dL (7-30); Carbon Dioxide* 26 mmol/L (20-32); Creatinine* 1.4 mg/dL (0.5-1.5); Est. Creatinine Clearance* 35.41; Estimated Glomerular Filt Rate 49 ml/min
[2022-09-17 10:21] LABS: Calcium* 8.6 mg/dL (8.4-10.6); Glucose* 156 mg/dL (60-115)
[2022-09-17 10:23] LABS: C Reactive Protein* 4.3 mg/dL (0.5-1.0)
--- NOTE | 2022-09-17 11:37 | PM.IMPN1 ---
Progress Note: A&P Assessment and plan (1) Fever: Problem details: Initially felt to be due to UTI. Now possibly due to bacteremia without an obvious source. Culture and sensitivity pending. Treating UTI with Keflex and Gram-positive cocci bacteremia with vancomycin. Status: Acute (2) Bacteremia: Problem details: Gram-positive cocci in 1 of 2 blood cultures. Start vancomycin, repeat cultures, watch for focus of infection. I spoke with labs this morning the results of blood culture from 09/13 is not available yet. Status: Acute (3) Severe aortic stenosis: Problem details: Recommend outpatient Cardiology follow-up for consideration of TAVR. Status: Acute (4) Abnormal echocardiogram: Problem details: 09/15/2022 technically limited exam. Echo contrast was administered to enhance visualization of all left ventricular segments. Normal LV size, moderately increased wall thickness, mildly reduced global systolic function with an estimated EF of 45-50%. Right ventricular cavity size is mildly enlarged, global systolic RV function is normal. Mildly enlarged left atrium. Aortic valve is trileaflet and calcified, moderate to severe stenosis and mild regurgitation. Aortic valve peak velocity is 3.4 m/sec, the peak gradient is 47 mm Hg, and the mean gradient is 29 mm Hg. The aortic valve area is 1.02 cm2 with a dimensionless index of 0.19. The stroke volume index is 40.5 milliliter/meter squared. The mitral valve is normal, mild mitral regurgitation. The inferior vena cava is normal size, respiratory size variation is less than 50%. Compared to 08/30/2019 the left ventricular function has decreased and aortic stenosis increased. Status: Acute (5) Cognitive impairment: Problem details: - lives [address] with , has Home Care following Status: Acute (6) Diabetes: Problem details: - [id number], last A1c 6.4 (05/2022) - monitor blood sugars Resume low-dose metformin as he is now eating and lactate is improving Status: Acute (7) Parkinsonian features: Problem details: Slowly progressive coarse resting tremor of the right upper extremity and sometimes of the left. Appears parkinsonian. No previous diagnosis or treatment. Trial of Sinemet - possibly some improvement. Status: Acute Plan 87-year-old male with febrile illness suspect due to Gram-positive bacteremia and possible E coli UTI. I have reviewed previous notes, labs, medications, and his echocardiogram. Continue IV antibiotics and await ID and sensitivity of blood culture. Daily blood cultures until negative blood cultures for 72 hours. If the blood culture from the remains negative, then we can discontinue daily blood cultures after tomorrow morning. Patient has worsening aortic stenosis on echocardiogram and will need outpatient cardiology follow-up for possible TAVR. Time Spent With Patient Total time spent: Total time spent today is 45 minutes, 30 minutes in coordination care and discussing with patient, his , his son, and his daughter about bacteremia, UTI, chronic kidney disease, and aortic stenosis. Subjective Time Seen by Provider: 11:16 Date Seen: 09/17/22 Interval history: Miguel's family was also there today: his , Doretha, and son, Aron, were in the room with daughter, Nasrin, on the phone. They wanted to know the results of the blood culture and if he could go home. He is feeling much better. His UO has picked up and he even had to get up at 3am to urinate. They wanted to know if the heart valve is involved with the bacteremia. When I spoke about the possibility of a SHEBA and described what it was, they all seemed fine with that and did not talk about declining interventions. I did not have the opportunity to ask them more about Nasrin's conversation with Dr. Mackay in which she thought he would not want such interventions. Miguel's tremor is slightly better today, according to his . Exam Narrative: Exam Narrative: General: No acute distress. Awake, alert, oriented x3. Right arm resting tremor and pill rolling present. No pallor. No jaundice. Oropharynx: Clear. Mucous membranes moist. Cardiovascular: Regular rate and rhythm. Grade 2/6 systolic ejection murmur. Respiratory: Clear to auscultation bilaterally. No wheezes or crackles. Abdomen: Bowel sounds present. Soft, nondistended, nontender. Extremities: Support hose in place. Trace pedal edema. Const: Vital Signs, click to edit/add: Vital Signs - 24 hr 09/16/22 16:15 09/16/22 16:15 09/16/22 16:15 Temperature Pulse Rate 62 Pulse Rate [Pulse Oximeter] 62 Respiratory Rate 18 18 Blood Pressure [Le ft Arm] Blood Pressure [Ri ght Arm] Pulse Oximetry 97 Oxygen Delivery Me thod Room Air 09/16/22 16:15 09/16/22 21:54 09/16/22 23:00 Temperature 97.8 F 98.6 F Pulse Rate Pulse Rate [Pulse Oximeter] 71 65 65 Respiratory Rate 18 18 18 Blood Pressure [Le ft Arm] 138/65 Blood Pressure [Ri ght Arm] 124/73 Pulse Oximetry 97 96 Oxygen Delivery Me thod Room Air Room Air 09/16/22 23:00 09/17/22 03:00 Temperature 98.9 F Pulse Rate Pulse Rate [Pulse Oximeter] 78 Respiratory Rate 18 18 Blood Pressure [Le ft Arm] 138/76 Blood Pressure [Ri ght Arm] Pulse Oximetry 96 92 Oxygen Delivery Me thod Room Air Room Air Documenting provider has reviewed patient's vital signs: yes Labs Labs: Laboratory Results - last 24 hr 09/17/22 09/17/22 08:45 08:45 WBC 5.02 RBC 4.05 L Hgb 12.7 L Hct 38.5 MCV 95 MCH 31 MCHC 33 RDW Coeff of Brian 12.6 Plt Count 145 Neut % (Auto) 63.8 Lymph % (Auto) 18.1 L [place] % (Auto) 12.7 H Eos % (Auto) 4.2 Baso % (Auto) 0.6 Neut # (Auto) 3.20 Lymph # (Auto) 0.90 [place] # (Auto) 0.60 Eos # (Auto) 0.21 Baso # (Auto) 0.03 Sodium 141 Potassium 4.0 Chloride 108 Carbon Dioxide 26 BUN 19 Creatinine 1.4 Estimated Creat Clear 35.41 Estimated GFR 49 Glucose 156 H Calcium 8.6 C-Reactive Protein 4.3 H
--- NOTE | 2022-09-17 19:35 | PC.NURSE ---
End of shift [id number] Pt alert and oriented but forgetful. Pleasant and cooperative. at bedside all of shift. VSS on room air. Telemetry monitoring, paced rhythm. BG 106, 121 , 122, no sliding scale needed. Up with stand by and walker to bathroom. Intermittent resting throughout the day. ?
[2022-09-17] MEDS: ROSUVASTATIN CALCIUM 10 MG TABLET 5 MG PO (20:57)
--- NOTE | 2022-09-17 21:22 | PC.NURSE ---
Shift note: Pt is doing well, no fever, SOB and cough noted. BG was 161 and 2 unit of insulin given as per sliding scale order. A1 with walker and GB to and from bathroom. Denied any pain at this time. V/S stable. Pt pleasant and cooperate with treatment and care.
[2022-09-18 02:31] VITALS: BP 145/80; PULSE 83; RESP 16; TEMP 36.9; O2SAT 92
--- NOTE | 2022-09-18 07:47 | P.DS_ITS ---
DS: Providers Provider Date Seen: 09/18/22 Date of admission: 09/14/22 00:30 Primary care physician: Alec Nguyen MD Admitting Clinician: Rachael Gee MD Attending Physician on discharge: Rachael Gee MD Date of Discharge: 09/18/22 DS: Diagnosis Discharge Diagnosis (1) Fever: Status: Acute Problem details: Initially felt to be due to UTI. Treated with piperacillin tazobactam then cephalexin. He had 1 positive blood culture from admission the turned out to be a contaminant. (2) Bacteremia: Status: Acute Problem details: One positive blood culture from admission turned out to be a contaminant. (3) Severe aortic stenosis: Status: Acute Problem details: Recommend outpatient Cardiology follow-up for consideration of TAVR. (4) Abnormal echocardiogram: Status: Acute Problem details: 09/15/2022 technically limited exam. Echo contrast was administered to enhance visualization of all left ventricular segments. Normal LV size, moderately increased wall thickness, mildly reduced global systolic function with an estimated EF of 45-50%. Right ventricular cavity size is mildly enlarged, global systolic RV function is normal. Mildly enlarged left atrium. Aortic valve is trileaflet and calcified, moderate to severe stenosis and mild regurgi tation. Aortic valve peak velocity is 3.4 m/sec, the peak gradient is 47 mm Hg, and the mean gradient is 29 mm Hg. The aortic valve area is 1.02 cm2 with a dimensionless index of 0.19. The stroke volume index is 40.5 milliliter/meter squared. The mitral valve is normal, mild mitral regurgitation. The inferior vena cava is normal size, respiratory size variation is less than 50%. Compared to 08/30/2019 the left ventricular function has decreased and aortic stenosis increased. (5) Cognitive impairment: Status: Acute Problem details: - lives at [address] with , has Home Care following (6) Diabetes: Status: Acute Problem details: Fairly well controlled (7) Parkinsonian features: Status: Acute Problem details: Slowly progressive coarse resting tremor of the right upper extremity and sometimes of the left. Appears parkinsonian. No previous diagnosis or treatment. Trial of Sinemet - possibly some improvement. DS: Summary Hospital Course Hospital Course: Patient admitted to the hospital with fever tachycardia and weakness. Time of admission the source of the fever was suspected to be a urinary tract infection. He was treated initially with Pipracil and tazobactam. When cultures and sensitivity returned and he was afebrile he was switched to cephalexin. One of 2 blood cultures at the time of admission was positive. This is now reported out as a micrococcus species suspected to be a contaminant. Subsequent blood cultures are all negative to date. Patient is noted to be cognitively impaired and also appears to have a parkinsonian tremor. He started on Sinemet with possibly some benefit for his tremor. Patient is found to have a heart murmur. Echocardiogram was obtained and shows severe aortic stenosis and decreasing left LV function. He is referred to Cardiology for discussion about management options. Status at Discharge Functional status at discharge: uses cane/walker Overall status at discharge: patient is progressing back to baseline Time Spent with Patient Time attestation: Total time spent providing and/or coordinating discharge services: Time spent: Greater than 30 minutes Exam Narrative: Exam Narrative: He is alert and appears in no distress. Breathing is unlabored. He continues to have a resting pill-rolling tremor of his right hand. Const: Vital Signs, click to edit/add: Vital Signs - 24 hr 09/17/22 11:00 09/17/22 15:00 09/17/22 15:00 Temperature 98.4 F Pulse Rate 61 Pulse Rate [Pulse Oximeter] 65 64 Respiratory Rate 18 18 Blood Pressure [Le ft Arm] 136/63 Blood Pressure [Ri ght Arm] Pulse Oximetry 94 Oxygen Delivery Me thod Room Air 09/17/22 15:00 09/17/22 15:00 09/17/22 19:00 Temperature 98.2 F 98.3 F Pulse Rate Pulse Rate [Pulse Oximeter] 64 59 L Respiratory Rate 18 18 18 Blood Pressure [Le ft Arm] Blood Pressure [Ri ght Arm] 122/61 120/84 Pulse Oximetry 94 94 95 Oxygen Delivery Me thod Room Air Room Air Room Air 09/17/22 22:55 09/17/22 23:26 09/17/22 23:26 Temperature 98.3 F Pulse Rate Pulse Rate [Pulse Oximeter] 66 66 Respiratory Rate 16 16 Blood Pressure [Le ft Arm] Blood Pressure [Ri ght Arm] 147/77 H Pulse Oximetry 95 95 Oxygen Delivery Me thod Room Air Room Air 09/17/22 23:27 09/18/22 02:31 Temperature 98.4 F Pulse Rate 59 L Pulse Rate [Pulse Oximeter] 83 Respiratory Rate 16 Blood Pressure [Le ft Arm] 145/80 H Blood Pressure [Ri ght Arm] Pulse Oximetry 92 Oxygen Delivery Me thod Room Air Documenting provider has reviewed patient's vital signs: yes DS: Data Data Completed and Pending Labs on day of discharge: Labs from last 24 hours 09/17/22 09/17/22 08:45 08:45 WBC 5.02 RBC 4.05 L Hgb 12.7 L Hct 38.5 MCV 95 MCH 31 MCHC 33 RDW Coeff of Brian 12.6 Plt Count 145 Neut % (Auto) 63.8 Lymph % (Auto) 18.1 L York % (Auto) 12.7 H Eos % (Auto) 4.2 Baso % (Auto) 0.6 Neut # (Auto) 3.20 Lymph # (Auto) 0.90 [place] # (Auto) 0.60 Eos # (Auto) 0.21 Baso # (Auto) 0.03 Sodium 141 Potassium 4.0 Chloride 108 Carbon Dioxide 26 BUN 19 Creatinine 1.4 Estimated Creat Clear 35.41 Estimated GFR 49 Glucose 156 H Calcium 8.6 C-Reactive Protein 4.3 H Preliminary micro results at discharge 09/16/22 11:56 Blood Culture - Preliminary Blood NO GROWTH AFTER 24 HOURS 09/15/22 11:40 Blood Culture - Preliminary Blood NO GROWTH AFTER 48 HOURS 09/13/22 22:25 Blood Culture - Preliminary Blood No growth. Discharge Plan Discharge Disposition: Home w/ Parent or Adult Date of Admission: 09/14/22 00:30 Attending Provider on Discharge: Patrice Stearns Primary Care Provider: Alec Nguyen Condition: Stable Anticipated Discharge Date/Time: 09/18/22 07:53 Discharge Medications: New carbidopa-levodopa 25-100 mg Tablet 1 tab PO TIDWM Qty: 90 0RF cephalexin 500 mg Capsule 500 mg PO TID Qty: 10 0RF sennosides-docusate sodium [Stool Softener-Laxative] 8.6-50 mg Tablet 1 tab PO BID PRNQty: 60 0RF Continued acetaminophen 500 mg tablet 500 - 1,000 mg PO Q6H PRN Eliquis 2.5 mg tablet 2.5 mg PO BID citalopram 10 mg tablet 10 mg PO DAILY metformin 850 mg tablet 850 mg PO BIDWM diphenhydramine-acetaminophen [Tylenol PM Extra Strength] 25-500 mg tablet 1 tab PO QHS rosuvastatin 5 mg tablet 5 mg PO HS cholecalciferol (vitamin D3) 25 mcg (1,000 unit) capsule 25 mcg PO DAILY nitroglycerin 0.4 mg tablet, sublingual 0.4 mg sublingual Q5M PRN Rx Instructions: do not exceed 3 doses per episode zinc gluconate 50 mg tablet 50 mg PO DAILY Discharge Orders: Discharge Order (Routine); Ordered 09/18/22 Ordered By: Patrice Stearns Additional Instructions: See Dr. Nguyen in 1-2 weeks. See the infant toddler lead teacher at the [facility] at next available appointment. Activity Level: Activity as Tolerated and Use Walker Discharge Diet: Regular Follow Up Appointments: Alec Nguyen MD [Primary Care Provider] - (Follow-up in 1-2 weeks.) Forms: [employer] Info Instructions
[2022-09-18 08:00] VITALS: BP 138/84; PULSE 65; RESP 18; TEMP 36.7; O2SAT 93
[2022-09-18 08:14] VITALS: PULSE 60
[2022-09-18] MEDS: CITALOPRAM HYDROBROMIDE 20 MG TABLET 10 MG PO (08:39)
[2022-09-18] MEDS: METFORMIN ER 500 MG PO (08:39)
[2022-09-18] MEDS: APIXABAN 5 MG TABLET 2.5 MG PO (08:40)
[2022-09-18] MEDS: CARBIDOPA-LEVODOPA 25-100 TABLET 1 TAB PO (08:40)
[2022-09-18] MEDS: cephALEXin 500 MG CAPSULE PO (08:40)
--- NOTE | 2022-09-18 13:11 | PC.NURSE ---
VSS AND AFEBRILE. PATIENT DENIED PAIN AND TOLERATED REGULAR DIET WITH NO C/O N/V. UP WITH SBA AND WALKER TO CHAIR AND BATHROOM. SL DC'D. REVIEWED DC INSTRUCTIONS WITH PATIENT AND HIS . BOTH DENIED QUESTIONS OR CONCERNS. PATIENT DC'D HOME VIA GRANDDAUGHTER.
== END 2022-09-18 10:41 | disposition home or self-care (01) | DRG 724 ==
LOC: ED 09-14 → MEDSURG 09-14 00:13
PROVIDERS: Family Medicine; Hospitalist; Admitting Provider Family Medicine; Emergency Provider Internal Medicine; PCP Surgery; Visit Provider Family Medicine
DX: R78.81 Bacteremia (principal); I35.2 Nonrheumatic aortic (valve) stenosis with insufficiency; N39.0 Urinary tract infection, site not specified; B96.89 Other specified bacterial agents as the cause of diseases classified elsewhere; B96.20 Unspecified Escherichia coli [E. coli] as the cause of diseases classified elsewhere; Z16.20 Resistance to unspecified antibiotic; R93.1 Abnormal findings on diagnostic imaging of heart and coronary circulation; E11.9 Type 2 diabetes mellitus without complications; I51.7 Cardiomegaly; I70.0 Atherosclerosis of aorta; I34.0 Nonrheumatic mitral (valve) insufficiency; R01.1 Cardiac murmur, unspecified; G31.84 Mild cognitive impairment of uncertain or unknown etiology; R65.20 Severe sepsis without septic shock; R53.1 Weakness; R00.0 Tachycardia, unspecified; G20 Parkinson's disease; Z79.84 Long term (current) use of oral hypoglycemic drugs; Z79.01 Long term (current) use of anticoagulants; E78.5 Hyperlipidemia, unspecified; R05.9 Cough, unspecified; R11.10 Vomiting, unspecified; Z95.0 Presence of cardiac pacemaker; Z90.49 Acquired absence of other specified parts of digestive tract; Z98.890 Other specified postprocedural states; Z66 Do not resuscitate; Z20.822 Contact with and (suspected) exposure to COVID-19; R74.02 Elevation of levels of lactic acid dehydrogenase [LDH]; D72.829 Elevated white blood cell count, unspecified; R77.8 Other specified abnormalities of plasma proteins; L89.151 Pressure ulcer of sacral region, stage 1; R60.0 Localized edema; I10 Essential (primary) hypertension
CPT/HCPCS: 36415; 71046; 71260; 80048; 80053; 81003; 81015; 82803; 82962; 83605; 84484; 85025; 85027; 85379; 86140; 87040; 87086; 87186; 87502; 87634; 87635; 93005; 93306; 94761; 97110; 97116; 97161; 97165; 97535; 99284; 99285; A9270; J2405; J2543; J3370; J7030; J7050; J7120; Q9957; Q9967

== ENCOUNTER 2022-09-24 19:55 | Outpatient (CLI) | payer BC, SELFPAY | END 2022-09-24 19:56 | disposition home or self-care (01) | LOC: AMB 09-26 02:36 | PROVIDERS: PCP Surgery; Visit Provider Family Medicine | DX: R53.81 Other malaise (principal) | CPT/HCPCS: A0425; A0427 ==

== ENCOUNTER 2022-09-24 20:18 | Inpatient (IN) | payer BC, SELFPAY ==
[2022-09-24] VITALS (18 sets, daily range): BP systolic 113–139; BP diastolic 53–82; PULSE 50–66; RESP 16–22; TEMP 36.9–37.6; O2SAT 90–96; BMI 34.3
--- NOTE | 2022-09-24 21:09 | CRLHL7_ITS ---
For Patients: As a result of the Cures Act, medical imaging exams and procedure reports are released immediately into your electronic medical record. You may view this report before your referring provider. If you have questions, please contact your health care provider. INDICATION: Fever, viral illness. TECHNIQUE: Chest 1 views. COMPARISON: CT September 13, 2022. FINDINGS: The pectoral dual-chamber AICD/pacer. Lungs: Low lung volumes. No consolidation. Basilar linear opacities likely subsegmental atelectasis. Pleura: No pleural effusion or pneumothorax. Heart and Mediastinum: Normal heart size. Changes of open-heart surgery.. Bones: Sternotomy wires. IMPRESSION: No consolidation. Dictated by Navjot Galvin MD @ 09/24/2022 10:02:56 PM (Electronically Signed)
[2022-09-24 21:17] LABS: Lactate* 3.2 mmol/L (0.5-1.9); Troponin, Point-of-Care* 0.06 ng/ml (0.01-0.04)
[2022-09-24 21:19] LABS: Basophils Absolute Auto 0.02 K/uL (0.00-0.30); Basophils Percent Auto 0.2 % (0.0-3.0); Eosinophils Absolute Auto 0.03 K/uL (0.00-0.50); Eosinophils Percent Auto 0.3 % (0.0-7.0); Hematocrit 40.3 % (37.0-53.0); Hemoglobin* 13.2 gm/dL (13.5-17.5); Immature Granulocytes Abs Auto 0.16 K/uL (0.00-0.30); Immature Granulocytes Pct Auto 1.7 %; Lymphocytes Percent Auto 9.4 % (20-44); Mean Corpuscular HGB Conc 33 gm/dL (32-36); Mean Corpuscular Hemoglobin 31 pg (26-34); Mean Corpuscular Volume 96 fL (80-100); Monocytes Percent Auto 12.5 % (0.0-11.0); Neutrophils Percent Auto 75.9 % (42.0-72.0); Platelet Count* 234 K/uL (140-440); RDW Coefficient of Variation % 12.8 % (11.5-15.5); Red Blood Count 4.22 m/uL (4.30-5.90); White Blood Count* 9.51 K/uL (4.50-11.00)
[2022-09-24 21:21] LABS: Albumin* 4.4 g/dL (3.3-5.0); Chloride* 106 mmol/L (96-114); Sodium* 137 mmol/L (135-149)
[2022-09-24 21:22] LABS: Potassium* 4.5 mmol/L (3.6-5.1)
[2022-09-24 21:23] LABS: Creatinine* 1.5 mg/dL (0.5-1.5); Estimated Glomerular Filt Rate 45 ml/min; Slide Review Reflex No
[2022-09-24 21:24] LABS: Alanine Aminotransferase* 18 U/L (4-50); Alkaline Phosphatase* 136 U/L (40-150); Aspartate Amino Transferase* 54 U/L (12-35); Bilirubin Direct* 0.3 mg/dL (0.0-0.5); Bilirubin Total* 0.7 mg/dL (0.1-1.5); Blood Urea Nitrogen* 22 mg/dL (7-30); Carbon Dioxide* 22 mmol/L (20-32); Total Protein* 7.2 g/dL (6.0-8.3)
[2022-09-24 21:24] LABS: PCR FLU A Negative PCR FLU A (Negative); PCR FLU B Negative PCR FLU B (Negative); PCR RSV Negative PCR RSV (Negative)
[2022-09-24 21:25] LABS: Calcium* 9.2 mg/dL (8.4-10.6); Glucose* 173 mg/dL (60-115)
[2022-09-24 21:27] LABS: C Reactive Protein* 2.8 mg/dL (0.5-1.0)
[2022-09-24 21:29] LABS: SARS PCR* POSITIVE SARS-CoV-2 (Negative)
[2022-09-24 21:35] LABS: Mono Screen* Negative (Negative)
[2022-09-24 21:38] LABS: Troponin I* 0.09 ng/mL (0.01-0.04)
[2022-09-24] MEDS: 0.9 % SODIUM CHLORIDE 500 ML 500 ML IV (21:38)
--- NOTE | 2022-09-24 22:00 | ED.NURSE ---
Pt unable to provide UA at this time.
[2022-09-24 22:03] LABS: Erythrocyte SedimentationRate* 28 mm/hr (2-15)
--- NOTE | 2022-09-24 22:09 | ED.GENADULT ---
HPI - General Adult General Chief complaint: Fever Stated complaint: Fall, High temp Time Seen by Provider: 09/24/22 20:57 Source: patient and family Mode of arrival: EMS Limitations: altered mental status History of Present Illness HPI narrative: 87-year-old male with a history of some cognitive mental impairment and a recent hospitalization for fever thought to be secondary to UTI returns today stating that he just does not feel good. His states that he got tangled in his blanket earlier and fell forward onto the ground. He did not hit his head and did not complain of pain in any extremity however he was unable to get up without assistance. Patient usually does a walker at home but he did not have the strength to continue using his walker just before he fell and subsequently thereafter. He tells me that nothing hurts, he tells me that he just ?does not feel well. His tells me that he has been coughing for the last couple of days. Unclear if he has had a fever or not. He did not want to eat any supper this evening which is unusual for him. He denies any diarrhea or sick contacts that he is aware of. Related Data Home Medications Medication Instructions Recorded Confirmed acetaminophen 500 mg tablet 500 - 1,000 mg PO Q6H PRN 09/13/22 09/24/22 apixaban 2.5 mg tablet (Eliquis) 2.5 mg PO BID 09/13/22 09/24/22 citalopram 10 mg tablet 10 mg PO DAILY 09/13/22 09/24/22 diphenhydramine 25 1 tab PO QHS 09/13/22 09/24/22 mg-acetaminophen 500 mg tablet (Tylenol PM Extra Strength) metformin 850 mg tablet 850 mg PO BIDWM 09/13/22 09/24/22 rosuvastatin 5 mg tablet 5 mg PO HS 09/13/22 09/24/22 cholecalciferol (vitamin D3) 25 25 mcg PO DAILY 09/14/22 09/24/22 mcg (1,000 unit) capsule nitroglycerin 0.4 mg sublingual 0.4 mg sublingual Q5M PRN 09/14/22 09/14/22 tablet zinc gluconate 50 mg tablet 50 mg PO DAILY 09/14/22 09/24/22 Previous Rx's Medication Instructions Recorded carbidopa 25 mg-levodopa 100 mg 1 tab PO TIDWM #90 tabs 09/18/22 tablet sennosides 8.6 mg-docusate sodium 1 tab PO BID PRN #60 tabs 09/18/22 50 mg tablet (Stool Softener-Laxative) Allergies Allergy/AdvReac Type Severity Reaction Status Date / Time No Known Drug Allergies Allergy Verified 09/24/22 20:59 Review of Systems Status of ROS: Reports: unobtainable due to medical condition (Cognitive impairment) PFSH PFSH Medical History Cognitive impairment Colitis Diabetes Diverticulitis DVT of upper extremity (deep vein thrombosis) Health care directive on file Heart murmur Hyperlipidemia Hypertension NSTEMI (non-ST elevated myocardial infarction) OSWALDO (obstructive sleep apnea) Osteoarthritis Pacemaker Parkinsonian features Severe aortic stenosis Spinal stenosis Surgical History H/O hernia repair S/P CABG x 3 S/P cholecystectomy S/P small bowel resection Social History Narrative: Lives with at [address]. 3 grown children. No ETOH, no tobacco use. 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 DNR/DNI Highest level of school completed/degree received: high school graduate Smoking Status: Former smoker What tobacco products do you use: cigarettes Years smoked: 20 Smoking quit date/years: >15 years ago, cigars and pipe Do you use any of these nicotine containing products: None Second hand tobacco smoke exposure: No How often do you have a drink containing alcohol: never How often do you have six or more drinks on one occasion: Never AUDIT-C Alcohol total score: 0 Non-prescribed substance use: denies use Caffeine: Yes (Coffee) service: Yes Exam Narrative: Exam Narrative: Well-nourished well-developed patient in no acute distress. Patient answers most questions with I do not know or I do not remember although he can tell me that he is not short of breath, he has been coughing, and that he has no pain anywhere. HEENT: Normocephalic atraumatic. Pupils are equally round reactive to light. Extraocular muscles are intact. Conjunctivae are moist without any icterus noted. Moist mucous membranes. Posterior pharynx is normal. Neck is supple. He has no tenderness to palpation at the cervical spine. Cardiovascular: Heart is regular rate and rhythm S1 and S2 are present. Lungs: Clear to auscultation bilaterally no wheezes rhonchi or rales are appreciated. Patient takes deep breaths without any discomfort. Abdomen: Soft and nontender nondistended with normal bowel sounds. No guarding or rebound. No masses or organomegaly appreciated. Extremities: Bilateral lower extremities show trace edema. Normal DP and PT pulses. Skin: Well perfused without any obvious rashes. Const: Vital Signs, click to edit/add: Vital Signs - 24 hr 09/24/22 20:51 09/24/22 21:02 09/24/22 21:03 Temperature 99.6 F Pulse Rate 50 L 50 L Pulse Rate [Left P ulse Oximeter] 66 Respiratory Rate 22 Blood Pressure 120/55 L Blood Pressure [Le ft Upper Arm] 139/82 Pulse Oximetry 95 95 91 Oxygen Delivery Me thod Room Air Room Air 09/24/22 21:15 09/24/22 21:17 09/24/22 21:18 Temperature Pulse Rate 60 53 L 52 L Pulse Rate [Left P ulse Oximeter] Respiratory Rate 16 Blood Pressure 128/69 Blood Pressure [Le ft Upper Arm] Pulse Oximetry 93 91 90 Oxygen Delivery Me thod 09/24/22 21:30 09/24/22 21:32 09/24/22 21:45 Temperature Pulse Rate 53 L 51 L 52 L Pulse Rate [Left P ulse Oximeter] Respiratory Rate Blood Pressure 116/53 L Blood Pressure [Le ft Upper Arm] Pulse Oximetry 93 90 90 Oxygen Delivery Me thod 09/24/22 22:00 09/24/22 22:02 09/24/22 22:15 Temperature Pulse Rate 50 L 50 L 50 L Pulse Rate [Left P ulse Oximeter] Respiratory Rate Blood Pressure 115/53 L Blood Pressure [Le ft Upper Arm] Pulse Oximetry 90 90 91 Oxygen Delivery Me thod 09/24/22 22:30 09/24/22 22:32 Temperature Pulse Rate 50 L 50 L Pulse Rate [Left P ulse Oximeter] Respiratory Rate Blood Pressure 113/55 L Blood Pressure [Le ft Upper Arm] Pulse Oximetry 91 91 Oxygen Delivery Me thod Course Course Hospital Course: Lactate and CRP slightly elevated. COVID positive. Fluids started at 500 mL/hour x1. Vitally stable. However, Patient's oxygen saturation does drop to 90% on room air when he falls asleep. Troponin was elevated, however, it appears to be around his baseline. EKG showed a paced rhythm. Vital Signs Vital signs: Initial Vital Signs Temperature 99.6 F 09/24/22 20:51 Temperature Source Temporal Artery Scan 09/24/22 20:51 Pulse Rate 66 09/24/22 20:51 Pulse Rhythm 09/24/22 20:51 Respiratory Rate 22 09/24/22 20:51 Blood Pressure 139/82 09/24/22 20:51 Blood Pressure Mean 101 09/24/22 20:51 Blood Pressure Position Semi-Fowlers 09/24/22 20:51 Pulse Oximetry 95 09/24/22 20:51 Oxygen Delivery Method 09/24/22 20:51 Vital Signs Temperature 99.6 F 09/24/22 20:51 Pulse Rate 66 09/24/22 20:51 Respiratory Rate 22 09/24/22 20:51 Blood Pressure 139/82 09/24/22 20:51 Pulse Oximetry 95 09/24/22 20:51 Oxygen Delivery Method 09/24/22 20:51 Temperature 99.6 F 09/24/22 20:51 Pulse Rate 50 L 09/24/22 22:32 Respiratory Rate 16 09/24/22 21:17 Blood Pressure 113/55 L 09/24/22 22:32 Pulse Oximetry 91 09/24/22 22:32 Oxygen Delivery Method 09/24/22 21:02 Medical Decision Making MDM Narrative Medical decision making narrative: 87-year-old male with COVID-19 and weakness. Patient is not safe to go home at this time as he is requiring a 1-2 person transfer. Patient will be admitted for further management. Medical Records Medical records reviewed: Yes I reviewed the patient's medical records Lab Data Lab results reviewed: Yes I reviewed the patient's lab results Labs: Lab Results 09/24/22 09/24/22 09/24/22 Range/Units 20:25 20:45 20:45 WBC 9.51 (4.50-11.00) K/uL RBC 4.22 L (4.30-5.90) m/uL Hgb 13.2 L (13.5-17.5) gm/dL Hct 40.3 (37.0-53.0) % MCV 96 (80-100) fL MCH 31 (26-34) pg MCHC 33 (32-36) gm/dL RDW Coeff of Brian 12.8 (11.5-15.5) % Plt Count 234 (140-440) K/uL Neut % (Auto) 75.9 H (42.0-72.0) % Lymph % (Auto) 9.4 L (20-44) % Republic % (Auto) 12.5 H (0.0-11.0) % Eos % (Auto) 0.3 (0.0-7.0) % Baso % (Auto) 0.2 (0.0-3.0) % Neut # (Auto) 7.20 H (1.7-7.0) K/uL Lymph # (Auto) 0.90 (0.90-2.90) K/uL [place] # (Auto) 1.20 H (0.00-0.90) K/UL Eos # (Auto) 0.03 (0.00-0.50) K/uL Baso # (Auto) 0.02 (0.00-0.30) K/uL ESR 28 H (2-15) mm/hr Sodium (135-149) mmol/L Potassium (3.6-5.1) mmol/L Chloride (96-114) mmol/L Carbon Dioxide (20-32) mmol/L BUN (7-30) mg/dL Creatinine (0.5-1.5) mg/dL Estimated GFR ml/min Glucose (60-115) mg/dL Lactate (0.5-1.9) mmol/L Calcium (8.4-10.6) mg/dL Total Bilirubin (0.1-1.5) mg/dL Direct Bilirubin (0.0-0.5) mg/dL AST (12-35) U/L ALT (4-50) U/L Alkaline Phosphatase (40-150) U/L Troponin I (0.01-0.04) ng/mL C-Reactive Protein (0.5-1.0) mg/dL Total Protein (6.0-8.3) g/dL Albumin (3.3-5.0) g/dL SARS-CoV-2 (PCR) POSITIVE SARS-CoV-2 A (Negative) Monoscreen (Negative) Influenza Type A (PCR) Negative PCR FLU A (Negative) Influenza Type B (PCR) Negative PCR FLU B (Negative) RSV (PCR) Negative PCR RSV (Negative) POC Troponin I (0.01-0.04) ng/ml 09/24/22 09/24/22 09/24/22 Range/Units 20:45 20:45 20:45 WBC (4.50-11.00) K/uL RBC (4.30-5.90) m/uL Hgb (13.5-17.5) gm/dL Hct (37.0-53.0) % MCV (80-100) fL MCH (26-34) pg MCHC (32-36) gm/dL RDW Coeff of Brina (11.5-15.5) % Plt Count (140-440) K/uL Neut % (Auto) (42.0-72.0) % Lymph % (Auto) (20-44) % Republic % (Auto) (0.0-11.0) % Eos % (Auto) (0.0-7.0) % Baso % (Auto) (0.0-3.0) % Neut # (Auto) (1.7-7.0) K/uL Lymph # (Auto) (0.90-2.90) K/uL [place] # (Auto) (0.00-0.90) K/UL Eos # (Auto) (0.00-0.50) K/uL Baso # (Auto) (0.00-0.30) K/uL ESR (2-15) mm/hr Sodium 137 (135-149) mmol/L Potassium 4.5 (3.6-5.1) mmol/L Chloride 106 (96-114) mmol/L Carbon Dioxide 22 (20-32) mmol/L BUN 22 (7-30) mg/dL Creatinine 1.5 (0.5-1.5) mg/dL Estimated GFR 45 ml/min Glucose 173 H (60-115) mg/dL Lactate 3.2 H (0.5-1.9) mmol/L Calcium 9.2 (8.4-10.6) mg/dL Total Bilirubin 0.7 (0.1-1.5) mg/dL Direct Bilirubin 0.3 (0.0-0.5) mg/dL AST 54 H (12-35) U/L ALT 18 (4-50) U/L Alkaline Phosphatase 136 (40-150) U/L Troponin I 0.09 H* (0.01-0.04) ng/mL C-Reactive Protein 2.8 H (0.5-1.0) mg/dL Total Protein 7.2 (6.0-8.3) g/dL Albumin 4.4 (3.3-5.0) g/dL SARS-CoV-2 (PCR) (Negative) Monoscreen Negative (Negative) Influenza Type A (PCR) (Negative) Influenza Type B (PCR) (Negative) RSV (PCR) (Negative) POC Troponin I (0.01-0.04) ng/ml 09/24/22 Range/Units 20:45 WBC (4.50-11.00) K/uL RBC (4.30-5.90) m/uL Hgb (13.5-17.5) gm/dL Hct (37.0-53.0) % MCV (80-100) fL MCH (26-34) pg MCHC (32-36) gm/dL RDW Coeff of Brian (11.5-15.5) % Plt Count (140-440) K/uL Neut % (Auto) (42.0-72.0) % Lymph % (Auto) (20-44) % [place] % (Auto) (0.0-11.0) % Eos % (Auto) (0.0-7.0) % Baso % (Auto) (0.0-3.0) % Neut # (Auto) (1.7-7.0) K/uL Lymph # (Auto) (0.90-2.90) K/uL [place] # (Auto) (0.00-0.90) K/UL Eos # (Auto) (0.00-0.50) K/uL Baso # (Auto) (0.00-0.30) K/uL ESR (2-15) mm/hr Sodium (135-149) mmol/L Potassium (3.6-5.1) mmol/L Chloride (96-114) mmol/L Carbon Dioxide (20-32) mmol/L BUN (7-30) mg/dL Creatinine (0.5-1.5) mg/dL Estimated GFR ml/min Glucose (60-115) mg/dL Lactate (0.5-1.9) mmol/L Calcium (8.4-10.6) mg/dL Total Bilirubin (0.1-1.5) mg/dL Direct Bilirubin (0.0-0.5) mg/dL AST (12-35) U/L ALT (4-50) U/L Alkaline Phosphatase (40-150) U/L Troponin I (0.01-0.04) ng/mL C-Reactive Protein (0.5-1.0) mg/dL Total Protein (6.0-8.3) g/dL Albumin (3.3-5.0) g/dL SARS-CoV-2 (PCR) (Negative) Monoscreen (Negative) Influenza Type A (PCR) (Negative) Influenza Type B (PCR) (Negative) RSV (PCR) (Negative) POC Troponin I 0.06 H (0.01-0.04) ng/ml Imaging Data Chest x-ray: Attestation: I have reviewed the pertinent imaging results. Radiologist's impression: Chest 1 views. COMPARISON: CT September 13, 2022. FINDINGS: The pectoral dual-chamber AICD/pacer. Lungs: Low lung volumes. No consolidation. Basilar linear opacities likely subsegmental atelectasis. Pleura: No pleural effusion or pneumothorax. Heart and Mediastinum: Normal heart size. Changes of open-heart surgery.. Bones: Sternotomy wires. IMPRESSION: No consolidation. ECG Data Attestation: I personally reviewed and interpreted this ECG as follows: (Ventricular paced rhythm) Discharge Plan Discharge Clinical Impression: COVID-19, Weakness Patient Disposition: Admitted As Inpatient Condition: Stable
--- NOTE | 2022-09-24 22:41 | W.PC.EDHO ---
Primary Language: Preferred Language: Orientation Status: [] Alert & Oriented [x] Slight Confusion [] Known Dx Dementia Transfers By: [] Assist of 1 [x] Assist of 2 [] Lift Active Medications Discontinued Medications Generic Name Dose Route Start Last Admin Trade Name Sebastián PRN Reason Stop Dose Admin Sodium Chloride 500 mls @ 500 mls/hr 09/24/22 21:27 09/24/22 21:38 0.9 % Sodium Chloride 500 Ml IV 09/24/22 22:26 500 mls/hr .Q1H ONE Administration Description of Symptoms ED Triage Present Problem Patient arrives via [facility] with c/o fever, cough, Description and fall at 1830 today. Patient was d/c from [facility] to [facility] on 09/18 with fever, severe aortic stenosis, bacteremia, and newly diagnosed parkinson's - just started on sinemet. - please see [facility] d/c summary. Patient has h/o cognitive impairment. Patient tripped on a towel and fell this evening and was noted to have higher than normal BP - 150 systolic. Patient has been sick with a cough and fever. Patient c/o chronic back pain. ED Triage Date of Onset of 09/24/22 Symptoms Pain Pain Intensity [Back] 5 Pain Intensity 5 Pain Intensity 5 Pain Scale Used [Back] Numeric (1 - 10) Pain Scale Used Numeric (1 - 10) Pain Scale Used Numeric (1 - 10) IV Insertion/Site Date of IV Line Insertion [ 09/24/22 Right Anticubital] Oxygen Administration Pulse Oximetry 91 Pulse Oximetry 91 Pulse Oximetry 91 Pulse Oximetry 90 Pulse Oximetry 90 Pulse Oximetry 90 Pulse Oximetry 90 Pulse Oximetry 93 Pulse Oximetry 90 Pulse Oximetry 91 Pulse Oximetry 93 Pulse Oximetry 91 Pulse Oximetry 95 Pulse Oximetry 95 Oxygen Delivery Method Room Air Oxygen Delivery Method Room Air Cardiac Monitoring EKG Method 12 Lead
--- NOTE | 2022-09-24 23:32 | P.IMHP_ITS ---
Hospitalist- H&P: HPI History of Present Illness Time Seen by Provider: 22:30 Date Seen: 09/24/22 Chief complaint: Fall, High temp Narrative: Miguel Sepulveda is a 87 year old man who presents to the hospital for assessment of weakness and elevated temperature. Patient was admitted to the hospital from 14 September through 18 September with fever and found to have an E coli bladder infection pansensitive except for resistant to ciprofloxacin and levofloxacin. Initially treated with piperacillin and tazobactam and later switched to cephalexin. One of the blood cultures was positive for a gram positive organism. For a while he was also concurrently on vancomycin. In time it was determined that the positive blood culture was in fact a contaminant. During the course of the hospitalization a echocardiogram was obtained which demonstrated moderate to severe aortic stenosis. At time of discharge patient elected to seek consultation with a manager financial systems in the outpatient setting. He has yet to see a manager financial systems about this. Patient was doing relatively well in the home with his since discharge. Today he started to feel ?not well. ? In a relatively short period of time he became increasingly weak. At 1 point time he became entangled in blankets and was not able to get on tangled from the blankets. He also fell at 1 time and was not able to get up without assistance. Denies any pain or discomfort status post fall. Certainly had no loss of consciousness. Was brought into the emergency department for further assessment. In the emergency department it was determined that he has COVID-19 without evidence of COVID pneumonia. Has no hyp oxia. indicates she simply not able to care for him in this weakened state. Patient is thus admitted to the hospital under observation status. Review of Systems Status of ROS: Reports: 10 or more systems reviewed and unremarkable except as noted in History and below Narrative: Patient not a good historian. Tells me he does not recall certain events of today. Does not recall whether not he had a fever at home. Having said the above he does deny chest heaviness, pressure, tightness, or pain. Denies dyspnea at rest, paroxysmal nocturnal dyspnea, or orthopnea. Acknowledges chronic baseline dyspnea with exertion. Has had more of a dry hacky cough intermittently over the past couple of days, nonproductive. Denies hemoptysis or purulent sputum. Denies syncope or near-syncope. Denies orthostasis or lightheadedness. Denies vertigo. Acknowledges feeling not right and very weak. Decreased appetite. Denies dysuria, urgency, frequency, hematuria. Denies diarrhea or constipation. No focal motor neurologic deficits. Designates his as his primary power of net washer should that be required. Patient states unequivocally that he does not wish to be resuscitated in the event of cardiopulmonary demise. He states he would want to be kept comfortable only should he have cardiopulmonary demise. [facility] Medical History Cognitive impairment Colitis Diabetes Diverticulitis DVT of upper extremity (deep vein thrombosis) Health care directive on file Heart murmur Hyperlipidemia Hypertension NSTEMI (non-ST elevated myocardial infarction) OSWALDO (obstructive sleep apnea) Osteoarthritis Pacemaker Parkinsonian features Severe aortic stenosis Spinal stenosis Surgical History H/O hernia repair S/P CABG x 3 S/P cholecystectomy S/P small bowel resection Social History Narrative: Lives with [address]. 3 grown children. No ETOH, no tobacco use. 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 DNR/DNI Highest level of school completed/degree received: high school graduate Smoking Status: Former smoker What tobacco products do you use: cigarettes Years smoked: 20 Smoking quit date/years: >15 years ago, cigars and pipe Do you use any of these nicotine containing products: None Second hand tobacco smoke exposure: No How often do you have a drink containing alcohol: never How often do you have six or more drinks on one occasion: Never AUDIT-C Alcohol total score: 0 Non-prescribed substance use: denies use Caffeine: Yes (Coffee) service: Yes Meds Home Medications and Allergies Home Medications Medication Instructions Recorded Confirmed Type acetaminophen 500 mg tablet 500 - 1,000 mg PO Q6H PRN 09/13/22 09/24/22 History apixaban 2.5 mg tablet (Eliquis) 2.5 mg PO BID 09/13/22 09/24/22 History citalopram 10 mg tablet 10 mg PO DAILY 09/13/22 09/24/22 History diphenhydramine 25 1 tab PO QHS 09/13/22 09/24/22 History mg-acetaminophen 500 mg tablet (Tylenol PM Extra Strength) metformin 850 mg tablet 850 mg PO BIDWM 09/13/22 09/24/22 History rosuvastatin 5 mg tablet 5 mg PO HS 09/13/22 09/24/22 History cholecalciferol (vitamin D3) 25 25 mcg PO DAILY 09/14/22 09/24/22 History mcg (1,000 unit) capsule nitroglycerin 0.4 mg sublingual 0.4 mg sublingual Q5M PRN 09/14/22 09/14/22 History tablet zinc gluconate 50 mg tablet 50 mg PO DAILY 09/14/22 09/24/22 History Allergies Allergy/AdvReac Type Severity Reaction Status Date / Time No Known Drug Allergies Allergy Verified 09/24/22 20:59 Exam Narrative: Exam Narrative: Appears comfortable. Appears tired. No acute distress. Speaks coherently. Alert. Oriented to self, place, somewhat to time and somewhat to situation. Cooperative and friendly. Vision and hearing are grossly normal. Midline nasal septum. Dentition in fair repair. Supple neck. Midline trachea. No JVD or hepatojugular reflux. No carotid bruits. Lungs are clear to auscultation without wheezing, rhonchi, or rales. No CVA tenderness. Chest with sternotomy scar, well healed. Heart tones with regular rhythm. Split S2. Grade 4/6 systolic heart murmur loudest and right upper sternal border. No gallop or rub. PMI is not laterally displaced. Abdomen with active bowel sounds, soft, nontender. Extremities without edema. No obvious focal motor neurologic deficits. Skin is intact. No petechiae, rashes, cyanosis. Const: Vital Signs, click to edit/add: Vital Signs - 24 hr 09/24/22 20:51 09/24/22 21:02 09/24/22 21:03 Temperature 99.6 F Pulse Rate 50 L 50 L Pulse Rate [Left P ulse Oximeter] 66 Pulse Rate [Pulse Oximeter] Respiratory Rate 22 Blood Pressure 120/55 L Blood Pressure [Le ft Arm] Blood Pressure [Le ft Upper Arm] 139/82 Pulse Oximetry 95 95 91 Oxygen Delivery Me thod Room Air Room Air 09/24/22 21:15 09/24/22 21:17 09/24/22 21:18 Temperature Pulse Rate 60 53 L 52 L Pulse Rate [Left P ulse Oximeter] Pulse Rate [Pulse Oximeter] Respiratory Rate 16 Blood Pressure 128/69 Blood Pressure [Le ft Arm] Blood Pressure [Le ft Upper Arm] Pulse Oximetry 93 91 90 Oxygen Delivery Me thod 09/24/22 21:30 09/24/22 21:32 09/24/22 21:45 Temperature Pulse Rate 53 L 51 L 52 L Pulse Rate [Left P ulse Oximeter] Pulse Rate [Pulse Oximeter] Respiratory Rate Blood Pressure 116/53 L Blood Pressure [Le ft Arm] Blood Pressure [Le ft Upper Arm] Pulse Oximetry 93 90 90 Oxygen Delivery Me thod 09/24/22 22:00 09/24/22 22:02 09/24/22 22:15 Temperature Pulse Rate 50 L 50 L 50 L Pulse Rate [Left P ulse Oximeter] Pulse Rate [Pulse Oximeter] Respiratory Rate Blood Pressure 115/53 L Blood Pressure [Le ft Arm] Blood Pressure [Le ft Upper Arm] Pulse Oximetry 90 90 91 Oxygen Delivery Me thod 09/24/22 22:30 09/24/22 22:32 09/24/22 21:09 Temperature 99.6 F Pulse Rate 50 L 50 L Pulse Rate [Left P ulse Oximeter] Pulse Rate [Pulse Oximeter] Respiratory Rate 16 Blood Pressure 113/55 L Blood Pressure [Le ft Arm] Blood Pressure [Le ft Upper Arm] Pulse Oximetry 91 91 91 Oxygen Delivery Me thod Room Air 09/24/22 21:09 09/24/22 22:33 09/24/22 22:45 Temperature Pulse Rate 50 L 50 L Pulse Rate [Left P ulse Oximeter] Pulse Rate [Pulse Oximeter] Respiratory Rate Blood Pressure Blood Pressure [Le ft Arm] Blood Pressure [Le ft Upper Arm] Pulse Oximetry 92 92 96 Oxygen Delivery Me thod 09/24/22 23:15 Temperature 98.4 F Pulse Rate Pulse Rate [Left P ulse Oximeter] Pulse Rate [Pulse Oximeter] 59 L Respiratory Rate 18 Blood Pressure Blood Pressure [Le ft Arm] 122/55 L Blood Pressure [Le ft Upper Arm] Pulse Oximetry 95 Oxygen Delivery Me thod Room Air Documenting provider has reviewed patient's vital signs: yes Hospitalist - H&P: Result Labs Labs: Short CBC 09/24/22 Range/Units 20:45 WBC 9.51 (4.50-11.00) K/uL Hgb 13.2 L (13.5-17.5) gm/dL Hct 40.3 (37.0-53.0) % Plt Count 234 (140-440) K/uL BMP 09/24/22 20:45 Sodium 137 Potassium 4.5 Chloride 106 Carbon Dioxide 22 BUN 22 Creatinine 1.5 Glucose 173 H Calcium 9.2 Cardiac Enzymes 09/24/22 Range/Units 20:45 Troponin I 0.09 H* (0.01-0.04) ng/mL Liver Function 09/24/22 Range/Units 20:45 Total Bilirubin 0.7 (0.1-1.5) mg/dL Direct Bilirubin 0.3 (0.0-0.5) mg/dL AST 54 H (12-35) U/L ALT 18 (4-50) U/L Alkaline Phosphatase 136 (40-150) U/L Albumin 4.4 (3.3-5.0) g/dL ECG Attestation: I personally reviewed and interpreted this ECG as follows: ECG interpretation date: 09/24/22 ECG interpretation time: 22:45 Prior ECG tracings: not available for review Interpretation: Ventricular paced rhythm with rate of 50 beats per minute. Pacemaker function: normal pacer function Imaging Chest x-ray: Attestation: I have reviewed the pertinent imaging results. Radiologist's impression: No consolidative changes in the lung parenchyma. Assessment and Plan Assessment and plan (1) Anticoagulated by anticoagulation treatment: Problem comment: On apixaban 2.5 mg orally twice daily Status: Acute Assessment and Plan: 1. Continue the same. (2) COVID-19: Problem comment: No obvious COVID pneumonia or hypoxia Status: Acute Assessment and Plan: 1. Given comorbid medical conditions I recommended that we initiate 3 day course of remdesivir to which he is agreeable. (3) Weakness: Status: Acute Assessment and Plan: 1. Will again ask Physical therapy and Occupational therapy to assist with assessment and treatment. 2. Unclear as to whether not he will be able to return to the living setting that he currently has with his even with home care. May need to consider the possibility of transitional care in a care home facility in time. 3. May have an element of dehydration. Did receive 500 mL of crystalloid IV fluids in the emergency department. 4. Recheck lactate. (4) Heart murmur: Problem comment: Preliminary report: Severe on echo. Also reduced LV function. Status: Acute (5) Severe aortic stenosis: Problem comment: Recommend outpatient Cardiology follow-up for consideration of TAVR. Status: Acute Assessment and Plan: 1. Patient has yet to have cardiology follow-up. (6) Abnormal echocardiogram: Problem comment: 09/15/2022 technically limited exam. Echo contrast was administered to enhance visualization of all left ventricular segments. Normal LV size, moderately increased wall thickness, mildly reduced global systolic function with an estimated EF of 45-50%. Right ventricular cavity size is mildly enlarged, global systolic RV function is normal. Mildly enlarged left atrium. Aortic valve is trileaflet and calcified, moderate to severe stenosis and mild regurgitation. Aortic valve peak velocity is 3.4 m/sec, the peak gradient is 47 mm Hg, and the mean gradient is 29 mm Hg. The aortic valve area is 1.02 cm2 with a dimensionless index of 0.19. The stroke volume index is 40.5 milliliter/meter squared. The mitral valve is normal, mild mitral regurgitation. The inferior vena cava is normal size, respiratory size variation is less than 50%. Compared to 08/30/2019 the left ventricular function has decreased and aortic stenosis increased. Status: Acute (7) Parkinsonian features: Problem comment: Slowly progressive coarse resting tremor of the right upper extremity and sometimes of the left. Appears parkinsonian. No previous diagnosis or treatment. Trial of Sinemet - possibly some improvement. Status: Acute Assessment and Plan: 1. Continue with trial of Sinemet. 2. While in hospital continue work with physical and occupational therapy. (8) Cognitive impairment: Problem comment: - lives [address] with , has Home Care following Status: Acute (9) Diabetes: Problem comment: Fairly well controlled Status: Acute Assessment and Plan: 1. Continue on metformin 2. Fingerstick blood glucose 4 times daily with sliding scale aspart insulin (10) Elevated troponin I level: Problem comment: Possible demand myocardial ischemia Status: Acute Assessment and Plan: 1. Serial troponin levels 2. Telemetry and repeat electrocardiogram Plan 1. Reviewed with patient. 2. Answered his questions. 3. Patient agreeable to above stated plans and recommendations.
[2022-09-24 23:34] LABS: Lactate* 2.4 mmol/L (0.5-1.9)
[2022-09-24 23:35] LABS: HCO3 VBG 22 mmol/L (21-28); PCO2 VBG 40 mmHG (40-50); PO2 VBG 30.4 mmHG (25-47); pH VBG 7.354 (7.32-7.43)
[2022-09-24 23:49] LABS: Appearance Urine Clear (Clear); Bilirubin Urine Negative (Negative); Blood Urine Negative (Negative); Color Urine Yellow (Yellow); Glucose Urine Negative (Negative); Ketones Urine Negative (Negative); Leukocyte Esterase Urine Negative (Negative); Nitrite Urine Negative (Negative); Protein Urine 1+ (Negative); Specific Gravity Urine 1.025 (1.000-1.030); Urobilinogen Urine 0.2 (0.2-1.0); pH Urine 5.5 (5.0-8.5)
[2022-09-25] VITALS (11 sets, daily range): BP systolic 108–140; BP diastolic 52–77; PULSE 50–68; RESP 18; TEMP 36.4–36.9; O2SAT 94–98
[2022-09-25 00:04] LABS: Bacteria Urine Few; RBC Urine 0-2 (0-2); Squamous Epithelial Cell Urine Few (None-Few); WBC Urine 0-2 (0-5)
[2022-09-25] MEDS: 0.9 % SODIUM CHLORIDE 250 ml IV (00:06)
[2022-09-25 00:11] LABS: NT Pro B Type NatriureticPept* 3030 pg/mL
[2022-09-25 03:53] LABS: D Dimer Quantitative* 1.17 ug/ml (0.00-0.50)
[2022-09-25 06:49] LABS: Hematocrit 37.3 % (37.0-53.0); Hemoglobin* 12.4 gm/dL (13.5-17.5); Mean Corpuscular HGB Conc 33 gm/dL (32-36); Mean Corpuscular Hemoglobin 31 pg (26-34); Mean Corpuscular Volume 94 fL (80-100); Platelet Count* 193 K/uL (140-440); Red Blood Count 3.96 m/uL (4.30-5.90); White Blood Count* 9.09 K/uL (4.50-11.00)
[2022-09-25 06:55] LABS: Lactate* 1.5 mmol/L (0.5-1.9)
[2022-09-25 06:56] LABS: Slide Review Reflex No
[2022-09-25 07:27] LABS: Creatinine* 1.4 mg/dL (0.5-1.5); Est. Creatinine Clearance* 35.41; Estimated Glomerular Filt Rate 49 ml/min
--- NOTE | 2022-09-25 07:28 | PC.NURSE ---
A x 2 with gb and walker. Calls appropriately. Pt forgetful. Needs reorientation. Reddened area to buttocks, mepi applied.
[2022-09-25 07:38] LABS: Troponin I* 0.13 ng/mL (0.01-0.04)
[2022-09-25] MEDS: ACETAMINOPHEN 500 MG TABLET PO (10:34)
[2022-09-25] MEDS: CARBIDOPA-LEVODOPA 25-100 TABLET 1 TAB PO ×3 (10:35→18:07)
[2022-09-25] MEDS: APIXABAN 5 MG TABLET 2.5 MG PO ×2 (10:36→20:43)
[2022-09-25] MEDS: CITALOPRAM HYDROBROMIDE 20 MG TABLET 10 MG PO (10:36)
[2022-09-25] MEDS: METFORMIN 850 MG TABLET PO ×2 (10:36→18:07)
[2022-09-25] MEDS: SODIUM CHLORIDE 0.9 % (FLUSH) 10 ML SYRINGE 5 ML IVF ×2 (12:54→21:01)
[2022-09-25 13:10] LABS: SARS Antigen* POSITIVE (Negative)
--- NOTE | 2022-09-25 14:31 | PC.NURSE ---
end of shift. pt has been pleasant but he has dementia. OT saw him and did a mocca today. he is alert x2. complained of chronic back pain this am and he got prn Tylenol. he is up with 1 assist with gb and walker. he was incontinent and has a brief on. he did not know how to use the call light. he has the call light and the push button light now, he has been pleasantly confused. he son was here. Reddened area to buttocks cream was applied. , Mepilex was taken off, it was soiled. SL is patent. alarms are on. CPAP is here and RT checked it. he is on covid precautions he antigen test from today was positive,
--- NOTE | 2022-09-25 15:36 | PM.IMPN1 ---
Progress Note: A&P Assessment and plan (1) COVID-19: Problem details: No obvious COVID pneumonia or hypoxia Status: Acute (2) Weakness: Problem details: related to #1, #4, #6, #7 Status: Acute (3) Anticoagulated by anticoagulation treatment: Problem details: On apixaban 2.5 mg orally twice daily Status: Acute (4) Severe aortic stenosis: Problem details: Recommend outpatient Cardiology follow-up for consideration of TAVR. Status: Acute (5) Abnormal echocardiogram: Problem details: 09/15/2022 technically limited exam. Echo contrast was administered to enhance visualization of all left ventricular segments. Normal LV size, moderately increased wall thickness, mildly reduced global systolic function with an estimated EF of 45-50%. Right ventricular cavity size is mildly enlarged, global systolic RV function is normal. Mildly enlarged left atrium. Aortic valve is trileaflet and calcified, moderate to severe stenosis and mild regurgitation. Aortic valve peak velocity is 3.4 m/sec, the peak gradient is 47 mm Hg, and the mean gradient is 29 mm Hg. The aortic valve area is 1.02 cm2 with a dimensionless index of 0.19. The stroke volume index is 40.5 milliliter/meter squared. The mitral valve is normal, mild mitral regurgitation. The inferior vena cava is normal size, respiratory size variation is less than 50%. Compared to 08/30/2019 the left ventricular function has decreased and aortic stenosis increased. Status: Acute (6) Parkinsonian features: Problem details: Slowly progressive coarse resting tremor of the right upper extremity and sometimes of the left. Appears parkinsonian. No previous diagnosis or treatment. Trial of Sinemet - possibly some improvement. Status: Acute (7) Cognitive impairment: Problem details: - lives at [address] with , has Home Care following Status: Acute (8) Diabetes: Problem details: Fairly well controlled Status: Acute (9) Elevated troponin I level: Problem details: Possible demand myocardial ischemia Status: Acute Subjective Date Seen: 09/25/22 Interval history: Daily Progress Note - Hospital Medicine Day #: 2 CC: covid weakness, demand ischemia OVERNIGHT UPDATES FROM STAFF & MED, LAB, IMAGING UPDATES Vitals are stable. He is on room air. Hemoglobin is stable at 12.4, no worrisome white blood cell count. Platelets are normal. Lactate has returned to normal Troponin has been up trending 0.09, 0.10, 0.13 BNP is 3030 urine and urine culture are pending and negative to date No consolidation on chest x-ray Review of Systems: See subjective Cardiac: No new chest pain/pressure/palpitations. Respiratory: no new dyspnea. GI: No abdominal bloating Objective: Vitals: see above Lungs: Clear. Cardiac: S1S2. Disposition/Potential discharge - Likely to return to previous living situation. Total time is 35 minutes with greater than 50% spent in counseling and coordination of care. Exam Const: Vital Signs, click to edit/add: Vital Signs - 24 hr 09/24/22 20:51 09/24/22 21:02 09/24/22 21:03 Temperature 99.6 F Pulse Rate 50 L 50 L Pulse Rate [Left P ulse Oximeter] 66 Pulse Rate [Pulse Oximeter] Respiratory Rate 22 Blood Pressure 120/55 L Blood Pressure [Le ft Arm] Blood Pressure [Le ft Upper Arm] 139/82 Pulse Oximetry 95 95 91 Oxygen Delivery Me thod Room Air Room Air 09/24/22 21:15 09/24/22 21:17 09/24/22 21:18 Temperature Pulse Rate 60 53 L 52 L Pulse Rate [Left P ulse Oximeter] Pulse Rate [Pulse Oximeter] Respiratory Rate 16 Blood Pressure 128/69 Blood Pressure [Le ft Arm] Blood Pressure [Le ft Upper Arm] Pulse Oximetry 93 91 90 Oxygen Delivery Me thod 09/24/22 21:30 09/24/22 21:32 09/24/22 21:45 Temperature Pulse Rate 53 L 51 L 52 L Pulse Rate [Left P ulse Oximeter] Pulse Rate [Pulse Oximeter] Respiratory Rate Blood Pressure 116/53 L Blood Pressure [Le ft Arm] Blood Pressure [Le ft Upper Arm] Pulse Oximetry 93 90 90 Oxygen Delivery Me thod 09/24/22 22:00 09/24/22 22:02 09/24/22 22:15 Temperature Pulse Rate 50 L 50 L 50 L Pulse Rate [Left P ulse Oximeter] Pulse Rate [Pulse Oximeter] Respiratory Rate Blood Pressure 115/53 L Blood Pressure [Le ft Arm] Blood Pressure [Le ft Upper Arm] Pulse Oximetry 90 90 91 Oxygen Delivery Me thod 09/24/22 22:30 09/24/22 22:32 09/24/22 21:09 Temperature 99.6 F Pulse Rate 50 L 50 L Pulse Rate [Left P ulse Oximeter] Pulse Rate [Pulse Oximeter] Respiratory Rate 16 Blood Pressure 113/55 L Blood Pressure [Le ft Arm] Blood Pressure [Le ft Upper Arm] Pulse Oximetry 91 91 91 Oxygen Delivery Me thod Room Air 09/24/22 21:09 09/24/22 22:33 09/24/22 22:45 Temperature Pulse Rate 50 L 50 L Pulse Rate [Left P ulse Oximeter] Pulse Rate [Pulse Oximeter] Respiratory Rate Blood Pressure Blood Pressure [Le ft Arm] Blood Pressure [Le ft Upper Arm] Pulse Oximetry 92 92 96 Oxygen Delivery Me thod 09/24/22 23:15 09/24/22 23:15 09/25/22 01:16 Temperature 98.4 F Pulse Rate 50 L Pulse Rate [Left P ulse Oximeter] Pulse Rate [Pulse Oximeter] 59 L Respiratory Rate 18 18 Blood Pressure Blood Pressure [Le ft Arm] 122/55 L Blood Pressure [Le ft Upper Arm] Pulse Oximetry 95 [facility] 09/25/22 03:00 09/25/22 07:27 09/25/22 08:32 Temperature 98.1 F Pulse Rate 50 L Pulse Rate [Left P ulse Oximeter] Pulse Rate [Pulse Oximeter] 68 58 L Respiratory Rate 18 18 Blood Pressure Blood Pressure [Le ft Arm] 134/63 Blood Pressure [Le ft Upper Arm] Pulse Oximetry 95 [facility] 09/25/22 08:15 09/25/22 10:39 09/25/22 13:50 Temperature 98.0 F 97.8 F Pulse Rate Pulse Rate [Left P ulse Oximeter] Pulse Rate [Pulse Oximeter] 58 L 59 L Respiratory Rate 18 18 18 Blood Pressure Blood Pressure [Le ft Arm] 128/58 L 140/52 H Blood Pressure [Le ft Upper Arm] Pulse Oximetry 94 95 94 Oxygen Delivery [place] thod Room Air Room Air Room Air Labs Labs: Laboratory Results - last 24 hr 09/24/22 09/24/22 09/24/22 20:25 20:45 20:45 WBC 9.51 RBC 4.22 L Hgb 13.2 L Hct 40.3 MCV 96 MCH 31 MCHC 33 RDW Coeff of Brian 12.8 Plt Count 234 Neut % (Auto) 75.9 H Lymph % (Auto) 9.4 L [place] % (Auto) 12.5 H Eos % (Auto) 0.3 Baso % (Auto) 0.2 Neut # (Auto) 7.20 H Lymph # (Auto) 0.90 [place] # (Auto) 1.20 H Eos # (Auto) 0.03 Baso # (Auto) 0.02 ESR 28 H D-Dimer Quant (PE/DVT) VBG pH VBG pCO2 VBG pO2 VBG HCO3 Sodium Potassium Chloride Carbon Dioxide BUN Creatinine Estimated Creat Clear Estimated GFR Glucose Lactate Calcium Total Bilirubin Direct Bilirubin AST ALT Alkaline Phosphatase Troponin I C-Reactive Protein NT-Pro-B Natriuret Pep Total Protein Albumin Procalcitonin Urine Color Urine Appearance Urine pH Ur Specific [place] Urine Protein Urine Glucose (UA) Urine Ketones Urine Blood Urine Nitrite Urine Bilirubin Urine Urobilinogen Ur Leukocyte Esterase Urine RBC Urine WBC Ur Squamous Epith Cells Urine Bacteria SARS-CoV-2 (PCR) POSITIVE SARS-CoV-2 A Monoscreen Influenza Type A (PCR) Negative PCR FLU A Influenza Type B (PCR) Negative PCR FLU B RSV (PCR) Negative PCR RSV SARS-CoV-2 Ag (Rapid) POC Troponin I 09/24/22 09/24/22 09/24/22 20:45 20:45 20:45 WBC RBC Hgb Hct MCV MCH MCHC RDW Coeff of Brian Plt Count Neut % (Auto) Lymph % (Auto) [place] % (Auto) Eos % (Auto) Baso % (Auto) Neut # (Auto) Lymph # (Auto) [place] # (Auto) Eos # (Auto) Baso # (Auto) ESR D-Dimer Quant (PE/DVT) VBG pH VBG pCO2 VBG pO2 VBG HCO3 Sodium 137 Potassium 4.5 Chloride 106 Carbon Dioxide 22 BUN 22 Creatinine 1.5 Estimated Creat Clear Estimated GFR 45 Glucose 173 H Lactate 3.2 H Calcium 9.2 Total Bilirubin 0.7 Direct Bilirubin 0.3 AST 54 H ALT 18 Alkaline Phosphatase 136 Troponin I 0.09 H* C-Reactive Protein 2.8 H NT-Pro-B Natriuret Pep Total Protein 7.2 Albumin 4.4 Procalcitonin Urine Color Urine Appearance Urine pH Ur Specific [place] Urine Protein Urine Glucose (UA) Urine Ketones Urine Blood Urine Nitrite Urine Bilirubin Urine Urobilinogen Ur Leukocyte Esterase Urine RBC Urine WBC Ur Squamous Epith Cells Urine Bacteria SARS-CoV-2 (PCR) Monoscreen Negative Influenza Type A (PCR) Influenza Type B (PCR) RSV (PCR) SARS-CoV-2 Ag (Rapid) POC Troponin I 09/24/22 09/24/22 09/24/22 20:45 23:25 23:25 WBC RBC Hgb Hct MCV MCH MCHC RDW Coeff of Brian Plt Count Neut % (Auto) Lymph % (Auto) [place] % (Auto) Eos % (Auto) Baso % (Auto) Neut # (Auto) Lymph # (Auto) [place] # (Auto) Eos # (Auto) Baso # (Auto) ESR D-Dimer Quant (PE/DVT) VBG pH VBG pCO2 VBG pO2 VBG HCO3 Sodium Potassium Chloride Carbon Dioxide BUN Creatinine Estimated Creat Clear Estimated GFR Glucose Lactate Calcium Total Bilirubin Direct Bilirubin AST ALT Alkaline Phosphatase Troponin I 0.10 H* C-Reactive Protein NT-Pro-B Natriuret Pep 3030 Total Protein Albumin Procalcitonin Urine Color Yellow Urine Appearance Clear Urine pH 5.5 Ur Specific [place] 1.025 Urine Protein 1+ A Urine Glucose (UA) Negative Urine Ketones Negative Urine Blood Negative Urine Nitrite Negative Urine Bilirubin Negative Urine Urobilinogen 0.2 Ur Leukocyte Esterase Negative Urine RBC 0-2 Urine WBC 0-2 Ur Squamous Epith Cells Few Urine Bacteria Few A SARS-CoV-2 (PCR) Monoscreen Influenza Type A (PCR) Influenza Type B (PCR) RSV (PCR) SARS-CoV-2 Ag (Rapid) POC Troponin I 0.06 H 09/24/22 09/24/22 09/24/22 23:25 23:25 23:25 WBC RBC Hgb Hct MCV MCH MCHC RDW Coeff of Brian Plt Count Neut % (Auto) Lymph % (Auto) [place] % (Auto) Eos % (Auto) Baso % (Auto) Neut # (Auto) Lymph # (Auto) [place] # (Auto) Eos # (Auto) Baso # (Auto) ESR D-Dimer Quant (PE/DVT) VBG pH 7.354 VBG pCO2 40 VBG pO2 30.4 VBG HCO3 22 Sodium Potassium Chloride Carbon Dioxide BUN Creatinine Estimated Creat Clear Estimated GFR Glucose Lactate 2.4 H Calcium Total Bilirubin Direct Bilirubin AST ALT Alkaline Phosphatase Troponin I C-Reactive Protein NT-Pro-B Natriuret Pep Total Protein Albumin Procalcitonin 0.10 Urine Color Urine Appearance Urine pH Ur Specific [place] Urine Protein Urine Glucose (UA) Urine Ketones Urine Blood Urine Nitrite Urine Bilirubin Urine Urobilinogen Ur Leukocyte Esterase Urine RBC Urine WBC Ur Squamous Epith Cells Urine Bacteria SARS-CoV-2 (PCR) Monoscreen Influenza Type A (PCR) Influenza Type B (PCR) RSV (PCR) SARS-CoV-2 Ag (Rapid) POC Troponin I 09/24/22 09/25/22 09/25/22 23:25 06:15 06:15 WBC 9.09 RBC 3.96 L Hgb 12.4 L Hct 37.3 MCV 94 MCH 31 MCHC 33 RDW Coeff of Brian Plt Count 193 Neut % (Auto) Lymph % (Auto) [place] % (Auto) Eos % (Auto) Baso % (Auto) Neut # (Auto) Lymph # (Auto) [place] # (Auto) Eos # (Auto) Baso # (Auto) ESR D-Dimer Quant (PE/DVT) 1.17 H VBG pH VBG pCO2 VBG pO2 VBG HCO3 Sodium Potassium Chloride Carbon Dioxide BUN Creatinine 1.4 Estimated Creat Clear 35.41 Estimated GFR 49 Glucose Lactate Calcium Total Bilirubin Direct Bilirubin AST ALT Alkaline Phosphatase Troponin I 0.13 H* C-Reactive Protein NT-Pro-B Natriuret Pep Total Protein Albumin Procalcitonin Urine Color Urine Appearance Urine pH Ur Specific [place] Urine Protein Urine Glucose (UA) Urine Ketones Urine Blood Urine Nitrite Urine Bilirubin Urine Urobilinogen Ur Leukocyte Esterase Urine RBC Urine WBC Ur Squamous Epith Cells Urine Bacteria SARS-CoV-2 (PCR) Monoscreen Influenza Type A (PCR) Influenza Type B (PCR) RSV (PCR) SARS-CoV-2 Ag (Rapid) POC Troponin I 09/25/22 09/25/22 06:15 12:38 WBC RBC Hgb Hct MCV MCH MCHC RDW Coeff of Brian Plt Count Neut % (Auto) Lymph % (Auto) [place] % (Auto) Eos % (Auto) Baso % (Auto) Neut # (Auto) Lymph # (Auto) [place] # (Auto) Eos # (Auto) Baso # (Auto) ESR D-Dimer Quant (PE/DVT) VBG pH VBG pCO2 VBG pO2 VBG HCO3 Sodium Potassium Chloride Carbon Dioxide BUN Creatinine Estimated Creat Clear Estimated GFR Glucose Lactate 1.5 Calcium Total Bilirubin Direct Bilirubin AST ALT Alkaline Phosphatase Troponin I C-Reactive Protein NT-Pro-B Natriuret Pep Total Protein Albumin Procalcitonin Urine Color Urine Appearance Urine pH Ur Specific [place] Urine Protein Urine Glucose (UA) Urine Ketones Urine Blood Urine Nitrite Urine Bilirubin Urine Urobilinogen Ur Leukocyte Esterase Urine RBC Urine WBC Ur Squamous Epith Cells Urine Bacteria SARS-CoV-2 (PCR) Monoscreen Influenza Type A (PCR) Influenza Type B (PCR) RSV (PCR) SARS-CoV-2 Ag (Rapid) POSITIVE A POC Troponin I
[2022-09-25] MEDS: ROSUVASTATIN CALCIUM 10 MG TABLET 5 MG PO (20:43)
--- NOTE | 2022-09-25 23:07 | PC.NURSE ---
Shift note: Pt is doing well, very cooperative with care and treatment. Vitally stable. A1, walker and GB to and from the BR. Pt denied pain, SOB, Cough and N/V.
[2022-09-26] VITALS (10 sets, daily range): BP systolic 111–130; BP diastolic 61–80; PULSE 50–57; RESP 16–22; TEMP 36.1–37.3; O2SAT 94–96
--- NOTE | 2022-09-26 05:10 | PC.NURSE ---
[id number] Pt slept between vitals and cares, maintaining sats >90% on RA, occasionally put on his CPAP but removes after a short while. refused being repositioned and declined putting pillow under his legs to float heel, educated pt and importance of shifting weight for pressure ulcer prevention and pt declined to be moved, stated he was comfortable.
[2022-09-26] MEDS: CITALOPRAM HYDROBROMIDE 20 MG TABLET 10 MG PO (10:09)
[2022-09-26] MEDS: APIXABAN 5 MG TABLET 2.5 MG PO (10:09)
[2022-09-26] MEDS: CARBIDOPA-LEVODOPA 25-100 TABLET 1 TAB PO ×2 (10:09→13:38)
[2022-09-26] MEDS: METFORMIN 850 MG TABLET PO (10:10)
[2022-09-26] MEDS: SODIUM CHLORIDE 0.9 % (FLUSH) 10 ML SYRINGE 5 ML IVF (10:10)
--- NOTE | 2022-09-26 12:19 | REH.PT ---
Troponins were increasing yesterday and spoke with Dr. Wick who said today was his second dose of Remdisivir and to hold PT/OT until tomorrow.
[2022-09-26 14:25] LABS: HCO3 VBG 23 mmol/L (21-28); Lactate* 3.4 mmol/L (0.5-1.9); PCO2 VBG 45 mmHG (40-50); PO2 VBG 25.9 mmHG (25-47); pH VBG 7.311 (7.32-7.43)
[2022-09-26 14:41] LABS: Chloride* 106 mmol/L (96-114); Potassium* 3.8 mmol/L (3.6-5.1); Sodium* 136 mmol/L (135-149)
[2022-09-26 14:43] LABS: Creatinine* 1.4 mg/dL (0.5-1.5); Est. Creatinine Clearance* 35.41; Estimated Glomerular Filt Rate 49 ml/min
[2022-09-26 14:44] LABS: Blood Urea Nitrogen* 24 mg/dL (7-30); Carbon Dioxide* 21 mmol/L (20-32); Glucose* 161 mg/dL (60-115)
[2022-09-26 14:45] LABS: Calcium* 8.1 mg/dL (8.4-10.6)
[2022-09-26 14:47] LABS: C Reactive Protein* 6.8 mg/dL (0.5-1.0)
[2022-09-26 14:59] LABS: NT Pro B Type NatriureticPept* 4690 pg/mL
[2022-09-26 15:00] LABS: Troponin I* 0.07 ng/mL (0.01-0.04)
[2022-09-26 15:02] LABS: Procalcitonin* 0.12 ng/mL (<0.50)
--- NOTE | 2022-09-26 15:24 | PM.IMPN1 ---
Progress Note: A&P Assessment and plan (1) COVID-19: Problem details: No obvious COVID pneumonia or hypoxia I noted an elevated lactate likely from not taking in enough p.o.. I will fluid bolus him in run a very small flow of 75 mL of maintenance fluids tonight. Status: Acute (2) Weakness: Problem details: related to #1, #5, #6 Status: Acute (3) Elevated troponin I level: Problem details: Possible demand myocardial ischemia, now down trending Status: Acute (4) Anticoagulated by anticoagulation treatment: Problem details: On apixaban 2.5 mg orally twice daily Status: Acute (5) Severe aortic stenosis: Problem details: Recommend outpatient Cardiology follow-up for consideration of TAVR. Status: Acute (6) Parkinsonian features: Problem details: Slowly progressive coarse resting tremor of the right upper extremity and sometimes of the left. Appears parkinsonian. No previous diagnosis or treatment. Trial of Sinemet - possibly some improvement. Status: Acute (7) Cognitive impairment: Problem details: - lives at [address] with , has Home Care following Status: Acute (8) Diabetes: Problem details: Fairly well controlled Status: Acute Subjective Date Seen: 09/26/22 Interval history: Daily Progress Note - Hospital Medicine Day #: 2 CC: COVID weakness and encephalopathy OVERNIGHT UPDATES FROM STAFF & MED, LAB, IMAGING UPDATES Miguel presents shortly after being discharged earlier this month. He now has COVID as does his . He was weak, mildly short of breath and delirious at home. He was brought in by family for these concerns. No specific fever, rash or productive cough. No lateralizing signs of stroke. Since his admission he has continued to be stable. He is on room air. He is taking his food. He is intermittently forgetful. Seems a little down today. His vitals are all stable and reviewed. His CBC is stable, unremarkable. I checked his pH in its essentially normal. His electrolytes are normal, however notices lactate at bumped up and I wonder if this is from not taking in good p.o.. But is lactate was 3.4 and yesterday it was 1.5. His troponin is down trending. His C reactive protein is mildly elevated. His BNP has climbed just a little overnight. Review of Systems: See subjective Cardiac: No new chest pain/pressure/palpitations. Respiratory: no new dyspnea. GI: No abdominal bloating Objective: When asked him how he was doing he said, ?horse shit? - he seems a little at ambivalent. However he knows that the [employer] are on at 3:00 p.m. and he is looking forward to watching that with his daughter. He was also glad to know that his is feeling better from her COVID. Vitals: see above Lungs: Clear. Cardiac: S1S2. Disposition/Potential discharge - Likely to return to previous living situation. Total time is 35 minutes with greater than 50% spent in counseling and coordination of care. Exam Const: Vital Signs, click to edit/add: Vital Signs - 24 hr 09/25/22 19:00 09/25/22 21:09 09/25/22 23:00 Temperature 97.6 F Pulse Rate Pulse Rate [Pulse Oximeter] 53 L 53 L Respiratory Rate 18 Blood Pressure [Le ft Arm] 108/77 Pulse Oximetry 98 98 Oxygen Delivery De thod Room Air 09/25/22 23:00 09/26/22 01:54 09/26/22 03:00 Temperature 98.4 F 98.6 F Pulse Rate 53 L Pulse Rate [Pulse Oximeter] 53 L 53 L Respiratory Rate 18 18 Blood Pressure [Le ft Arm] 129/70 123/61 Pulse Oximetry 94 95 Oxygen Delivery De thod Room Air Room Air 09/26/22 09:34 09/26/22 08:15 09/26/22 08:15 Temperature 98.1 F Pulse Rate 50 L Pulse Rate [Pulse Oximeter] 55 L 57 L Respiratory Rate 18 18 Blood Pressure [Le ft Arm] 130/72 Pulse Oximetry 96 Oxygen Delivery De thod Room Air 09/26/22 12:15 Temperature 98.4 F Pulse Rate Pulse Rate [Pulse Oximeter] 53 L Respiratory Rate 20 Blood Pressure [Le ft Arm] 127/80 Pulse Oximetry 96 Oxygen Delivery De thod Room Air Labs Labs: Laboratory Results - last 24 hr 09/26/22 09/26/22 14:14 14:14 VBG pH 7.311 L VBG pCO2 45 VBG pO2 25.9 VBG HCO3 23 Sodium 136 Potassium 3.8 Chloride 106 Carbon Dioxide 21 BUN 24 Creatinine 1.4 Estimated Creat Clear 35.41 Estimated GFR 49 Glucose 161 H Lactate 3.4 H Calcium 8.1 L Troponin I 0.07 H* C-Reactive Protein 6.8 H NT-Pro-B Natriuret Pep 4690 Procalcitonin 0.12
--- NOTE | 2022-09-26 15:28 | PC.NURSE ---
VSS AND AFEBRILE. LS CLEAR. DENIED PAIN. PATIENT UP WITH A1, WALKER AND GAIT BELT. TOLERATING ACTIVITY WELL. UP TO BATHROOM AND RECLINER. PATIENT'S BUTTOCKS NOTED TO BE REDDENED WITH STAGE 2 PRESSURE ULCER TO LEFT BUTTOCK. AREA CLEANSED AND MEPILEX APPLIED. ENCOURAGED PATIENT TO REPOSITION FREQUENTLY. REPORTS DECREASED APPETITE; ENCOURAGED PO INTAKE THROUGHOUT SHIFT. PATIENT FLAT AND QUIET; STATES HE IS CONCERNED ABOUT HIS 'S HEALTH. DAUGHTER AND SON HERE TO VISIT. PATIENT IS INTERMITTENTLY CONFUSED AT BASELINE.
--- NOTE | 2022-09-26 22:21 | PC.NURSE ---
per am RN, pt was up in recliner x3 today and up to void in restroom x4 with walker belt and asst one. pt has dementia and needs redirection at times. 1600 vs and asst. pt resting in bed. checked on pt 3 more times this evening . Each time he was angry I woke him. he refused cares and told me to leave. verbally raising his voice in anger that i woke him. he refused to eat, take any of his meds , have IVF meaning a IV started. he refused to be repositioned in bed. refusing to use restroom or have attends checked. thus , unable to place dressing that would pad his lt buttock small open areas aprox. size of pencil eraser. per am RN. His daughter Nasrin Mondragon called x2 to check on pt. She is hoping he can go to [facility] here. Stating he has been declining at home and falling. stating his dementia is increasing. Maryam nurse aware and also informed by charge nurse. I did manage to get his vs at 1930 [id number] 94 RA. blood sugar with his device 95.
[2022-09-27] VITALS (8 sets, daily range): BP systolic 114–130; BP diastolic 56–84; PULSE 50–80; RESP 18–27; TEMP 36.3–36.6; O2SAT 92–97
--- NOTE | 2022-09-27 06:25 | PC.NURSE ---
[id number]: Patient uncooperative and resistant to nursing cares. Patient allowed vitals x1 and assessment. Refused T&R and pad changes despite tries on 2 different occasions. Leave me the hell ALONE. Around 0330 patient set off bed alarm self-transferring to BR. Patient somewhat open to writers assistance allowing assist with transfer and Mepilex being applied to L. buttock. A1/walker/GB. Denies pain.
[2022-09-27] MEDS: CARBIDOPA-LEVODOPA 25-100 TABLET 1 TAB PO ×3 (09:20→18:13)
[2022-09-27] MEDS: METFORMIN 850 MG TABLET PO ×2 (09:20→18:13)
[2022-09-27] MEDS: CITALOPRAM HYDROBROMIDE 20 MG TABLET 10 MG PO (09:21)
--- NOTE | 2022-09-27 09:51 | P.IMPN_ITS ---
Progress Note: A&P Assessment and plan (1) COVID-19: Problem details: - not requiring supplemental oxygen, no COVID pneumonia - elevated lactate on admission, likely secondary to decreased p.o. intake. Tolerated gentle IV fluid bolus Status: Acute (2) Weakness: Problem details: - related to COVID + comorbidities - working with therapies - hopes to go home with and increased cares, lives at [facility] Status: Acute (3) Elevated troponin I level: Problem details: - likely 2/2 demand myocardial ischemia, now down trending (peak 0.13) - no CP Status: Acute (4) Anticoagulated by anticoagulation treatment: Problem details: - apixaban 2.5 mg orally twice daily Status: Acute (5) Severe aortic stenosis: Problem details: - recommend outpatient Cardiology follow-up for consideration of TAVR. Status: Acute (6) Parkinsonian features: Problem details: - Slowly progressive coarse resting tremor of the right upper extremity and sometimes of the left. Appears parkinsonian. No previous diagnosis or treatment - trial of Sinemet during last hospital stay - possibly some improvement. Continue outpatient f/u Status: Acute (7) Cognitive impairment: Problem details: - lives at [address] [facility] [address] with , has Home Care following - may need increased cares upon d/c Status: Acute (8) Diabetes: Problem details: - fairly well controlled (last outpatient A1C <7 05/2022) Status: Acute Plan - per above - Continue eliquis for ppx - Called Doretha, questions were answered - Doretha is >7 days from COVID diagnosis and asymptomatic, and will come to the hospital today to see patient and observe therapies to assess whether or not discharge home is a feasible option for them Subjective Date Seen: 09/27/22 Interval history: Juan 87-year-old male, admitted to the hospital on 09/24 for weakness and mild dyspnea in the setting of COVID infection. Miguel has been working with therapies, was able to ambulate to the bathroom with his walker this morning. He is not requiring supplemental oxygen. He remains afebrile. He is frustrated at recurrent hospitalization. Exam Narrative: Exam Narrative: GEN: Alert and oriented, laying comfortably in bed and nontoxic in appearance HEENT: Normal external ears, EOMIs bilaterally CV: RRR, + systolic murmur without concerning features R: LCTA bilaterally without concerning wheezing, rales, or rhonchi. Air movement adequate Ext: wwp, no concerning edema Skin: No concerning skin lesions or rashes on exposed skin Neuro: Coarse tremor of bilateral upper extremities, more pronounced on the right, intermittently noted during exam Psych: Appropriate, mild anhedonia Const: Vital Signs, click to edit/add: Vital Signs - 24 hr 09/26/22 12:15 09/26/22 18:44 09/26/22 16:00 Temperature 98.4 F 97 F L Pulse Rate Pulse Rate [Pulse Oximeter] 53 L 50 L Respiratory Rate 20 16 Blood Pressure [Le ft Arm] 127/80 111/63 Pulse Oximetry 96 94 94 [facility] 09/26/22 19:30 09/26/22 23:00 09/26/22 23:26 Temperature 97 F L 99.1 F Pulse Rate 52 L Pulse Rate [Pulse Oximeter] 50 L 52 L Respiratory Rate 16 22 Blood Pressure [Le ft Arm] 121/71 123/62 Pulse Oximetry 95 95 [facility] Room Air 09/27/22 03:00 09/26/22 23:00 09/27/22 07:00 Temperature Pulse Rate Pulse Rate [Pulse Oximeter] 52 L 52 L Respiratory Rate 22 27 H Blood Pressure [Le ft Arm] Pulse Oximetry [facility] 09/27/22 07:00 Temperature 97.5 F L Pulse Rate Pulse Rate [Pulse Oximeter] 50 L Respiratory Rate 27 H Blood Pressure [Le ft Arm] 130/84 Pulse Oximetry 97 [facility] Labs Labs: Laboratory Results - last 24 hr 09/26/22 09/26/22 14:14 14:14 VBG pH 7.311 L VBG pCO2 45 VBG pO2 25.9 VBG HCO3 23 Sodium 136 Potassium 3.8 Chloride 106 Carbon Dioxide 21 BUN 24 Creatinine 1.4 Estimated Creat Clear 35.41 Estimated GFR 49 Glucose 161 H Lactate 3.4 H Calcium 8.1 L Troponin I 0.07 H* C-Reactive Protein 6.8 H NT-Pro-B Natriuret Pep 4690 Procalcitonin 0.12
[2022-09-27] MEDS: APIXABAN 5 MG TABLET 2.5 MG PO ×2 (11:03→20:53)
--- NOTE | 2022-09-27 14:02 | PC.SOCIAL ---
Spoke with pt.'s spouse Doretha who also has COVID regarding discharge plans. She states she cannot care for pt. at home the way he is now and with herself not feeling well. She would only consider a SNF for rehab if it was in [place]. Pt. would not be eligible for a SNF until 09/03. Otherwise she wants to see if pt. improves over the next few days and she would take pt. home with home care if needed. director of therapy services will continue to work on discharge planning needs.
--- NOTE | 2022-09-27 20:00 | PC.NURSE ---
Nursing Care Hours: [id number] Pt this shift calm and cooperative most of shift. Refused lab draw in flat spring assembler, pt frustrated with amount of times his blood has been taken. Therapeutic communication and listening provided so patient could vent. Pt then apologized for getting upset. Pt spent majority of the day with pt which brings pt great avery. Refused morning meal d/t being cold, refused soup at lunch d/t bad taste but did drink a chocolate ensure. Ate about 75% of dinner. 1 small loose stool, voiding in toilet, SB assist with walker, gait steady. VSS, stable on RA. Intermittent cough noted. LS clear. Pt afebrile
[2022-09-27] MEDS: ROSUVASTATIN CALCIUM 10 MG TABLET 5 MG PO (20:52)
[2022-09-27] MEDS: SODIUM CHLORIDE 0.9 % (FLUSH) 10 ML SYRINGE 5 ML IVF (20:53)
[2022-09-28 03:00] VITALS: BP 141/75; PULSE 64; RESP 18; TEMP 36.3; O2SAT 97
--- NOTE | 2022-09-28 06:06 | PC.NURSE ---
Shift note: Pt is doing well. Appears to regain strength as pt self-transferred to the BR. No pain, SOB, cough and N/v noted. Vitally stable.
[2022-09-28 07:00] VITALS: BP 143/79; PULSE 52; PULSE 60; RESP 18; TEMP 36.3; O2SAT 98
[2022-09-28 07:01] LABS: Basophils Absolute Auto 0.02 K/uL (0.00-0.30); Basophils Percent Auto 0.4 % (0.0-3.0); Eosinophils Absolute Auto 0.11 K/uL (0.00-0.50); Eosinophils Percent Auto 2.1 % (0.0-7.0); Hematocrit 38.8 % (37.0-53.0); Immature Granulocytes Abs Auto 0.02 K/uL (0.00-0.30); Immature Granulocytes Pct Auto 0.4 %; Lymphocytes Absolute Auto 1.19 K/uL (0.90-2.90); Lymphocytes Percent Auto 23.1 % (20-44); Mean Corpuscular HGB Conc 34 gm/dL (32-36); Mean Corpuscular Hemoglobin 31 pg (26-34); Mean Corpuscular Volume 93 fL (80-100); Monocytes Percent Auto 12.6 % (0.0-11.0); Neutrophils Absolute Auto 3.16 K/uL (1.7-7.0); Neutrophils Percent Auto 61.4 % (42.0-72.0); Platelet Count* 238 K/uL (140-440); RDW Coefficient of Variation % 12.6 % (11.5-15.5); Red Blood Count 4.17 m/uL (4.30-5.90); White Blood Count* 5.15 K/uL (4.50-11.00)
[2022-09-28 07:04] LABS: Slide Review Reflex No
[2022-09-28 07:16] LABS: Chloride* 108 mmol/L (96-114); Sodium* 139 mmol/L (135-149)
[2022-09-28 07:19] LABS: Creatinine* 1.3 mg/dL (0.5-1.5); Est. Creatinine Clearance* 38.13; Estimated Glomerular Filt Rate 54 ml/min
[2022-09-28 07:20] LABS: Blood Urea Nitrogen* 24 mg/dL (7-30); Calcium* 8.5 mg/dL (8.4-10.6); Carbon Dioxide* 23 mmol/L (20-32); Glucose* 111 mg/dL (60-115)
[2022-09-28] MEDS: CARBIDOPA-LEVODOPA 25-100 TABLET 1 TAB PO ×3 (08:43→17:26)
[2022-09-28] MEDS: CITALOPRAM HYDROBROMIDE 20 MG TABLET 10 MG PO (08:43)
[2022-09-28] MEDS: APIXABAN 5 MG TABLET 2.5 MG PO ×2 (08:43→20:31)
[2022-09-28] MEDS: METFORMIN 850 MG TABLET PO (08:43)
[2022-09-28 11:00] VITALS: BP 100/60; PULSE 64; RESP 18; TEMP 36.1; O2SAT 98
--- NOTE | 2022-09-28 12:44 | PM.IMPN1 ---
Progress Note: A&P Assessment and plan (1) COVID-19: Problem details: - not requiring supplemental oxygen, no COVID pneumonia - elevated lactate on admission, likely secondary to decreased po intake, tolerated gentle IV fluid bolus on admission Status: Acute (2) Weakness: Problem details: - related to COVID + comorbidities - working with therapies - hopes to go home with + increased cares, lives at [facility] - at this time, does not feel that she would be able to care for patient safely at home, may require TCU stay after acute infectious period Status: Acute (3) Elevated troponin I level: Problem details: - likely 2/2 demand myocardial ischemia, now down trending (peak 0.13) - no CP Status: Acute (4) Anticoagulated by anticoagulation treatment: Problem details: - apixaban 2.5 mg orally twice daily Status: Acute (5) Severe aortic stenosis: Problem details: - recommend outpatient Cardiology follow-up for consideration of TAVR Status: Acute (6) Parkinsonian features: Problem details: - Slowly progressive coarse resting tremor of the right upper extremity and sometimes of the left. Appears parkinsonian - trial of Sinemet during last hospital stay - possibly some improvement. Continue outpatient f/u Status: Acute (7) Cognitive impairment: Problem details: - lives at [facility] [address] with , has Home Care following - may need increased cares upon d/c Status: Acute (8) Diabetes: Problem details: - fairly well controlled (last outpatient A1C <7 05/2022) Status: Acute Plan - per above - continue PT and OT - appreciate input from social work team regarding disposition planning Subjective Date Seen: 09/28/22 Interval history: Miguel is an 87-year-old male, admitted to the hospital on 09/24 for weakness and mild dyspnea in the setting of + COVID infection. He is working with PT and OT, will likely He remains afebrile, not requiring supplemental oxygen. No concerns for hospitalist team this morning. Exam Narrative: Exam Narrative: GEN: Alert and oriented, sitting comfortably in bedside chair and answering questions appropriately CV: RRR, No concerning murmurs, rubs, or gallops R: LCTA bilaterally without concerning wheezing, rales, or rhonchi Ext: wwp, no concerning edema Skin: No concerning skin lesions or rashes on exposed skin Neuro: Tremor is baseline Psych: Appropriate Const: Vital Signs, click to edit/add: Vital Signs - 24 hr 09/27/22 14:38 09/27/22 15:00 09/27/22 15:00 Temperature Pulse Rate 50 L Pulse Rate [Pulse Oximeter] 56 L 56 L Respiratory Rate 18 18 Blood Pressure [Le ft Arm] Blood Pressure [Ri ght Arm] 114/56 L Pulse Oximetry 97 Oxygen Delivery Me thod Room Air 09/27/22 20:32 09/27/22 20:34 09/27/22 23:00 Temperature 98 F Pulse Rate 51 L Pulse Rate [Pulse Oximeter] 52 L Respiratory Rate 18 Blood Pressure [Le ft Arm] Blood Pressure [Ri ght Arm] 125/63 Pulse Oximetry 92 92 Oxygen Delivery Me thod Room Air 09/27/22 23:00 09/27/22 23:00 09/27/22 23:00 Temperature 97.3 F L Pulse Rate Pulse Rate [Pulse Oximeter] 80 80 Respiratory Rate 18 18 Blood Pressure [Le ft Arm] Blood Pressure [Ri ght Arm] 125/63 Pulse Oximetry 95 95 Oxygen Delivery Me thod Room Air 09/28/22 03:00 09/28/22 07:00 09/28/22 07:00 Temperature 97.3 F L Pulse Rate 52 L Pulse Rate [Pulse Oximeter] 64 Respiratory Rate 18 Blood Pressure [Le ft Arm] Blood Pressure [Ri ght Arm] 141/75 H Pulse Oximetry 97 98 Oxygen Delivery Nv thod Room Air 09/28/22 07:00 09/28/22 07:00 09/28/22 11:00 Temperature 97.3 F L 96.9 F L Pulse Rate Pulse Rate [Pulse Oximeter] 60 60 64 Respiratory Rate 18 18 18 Blood Pressure [Le ft Arm] 143/79 H 100/60 Blood Pressure [Ri ght Arm] Pulse Oximetry 98 98 Oxygen Delivery Me thod Room Air Room Air Labs Labs: Laboratory Results - last 24 hr 09/28/22 09/28/22 06:47 06:47 WBC 5.15 RBC 4.17 L Hgb 13.0 L Hct 38.8 MCV 93 MCH 31 MCHC 34 RDW Coeff of Brian 12.6 Plt Count 238 Neut % (Auto) 61.4 Lymph % (Auto) 23.1 [place] % (Auto) 12.6 H Eos % (Auto) 2.1 Baso % (Auto) 0.4 Neut # (Auto) 3.16 Lymph # (Auto) 1.19 [place] # (Auto) 0.60 Eos # (Auto) 0.11 Baso # (Auto) 0.02 Sodium 139 Potassium 4.0 Chloride 108 Carbon Dioxide 23 BUN 24 Creatinine 1.3 Estimated Creat Clear 38.13 Estimated GFR 54 Glucose 111 Calcium 8.5
[2022-09-28 15:00] VITALS: PULSE 50; RESP 18; O2SAT 92
--- NOTE | 2022-09-28 16:31 | PC.SOCIAL ---
Spoke with pt. Sahwna's window caser at [facility] at [phone] who confirmed pt. has a [facility] nurse every other week and pt.'s grandson is his MAINSPRING FORMER. Pt. is eligible for a PREFITTER and PT through [facility] if needed at discharge. If [facility] does not have staffing for these services another home care agency can be used. senior administrative services officer will continue to work on discharge planning needs.
[2022-09-28 19:00] VITALS: BP 115/75; PULSE 51; RESP 16; TEMP 36; O2SAT 95
[2022-09-28] MEDS: CIPROFLOXACIN 250 MG TABLET PO (20:31)
[2022-09-28] MEDS: ROSUVASTATIN CALCIUM 10 MG TABLET 5 MG PO (20:31)
[2022-09-28 23:00] VITALS: BP 100/65; PULSE 59; RESP 16; RESP 20; TEMP 35.9; O2SAT 97
[2022-09-29] VITALS (8 sets, daily range): BP systolic 103–146; BP diastolic 51–113; PULSE 51–55; RESP 16–18; TEMP 35.9–36.4; O2SAT 96–97
--- NOTE | 2022-09-29 05:19 | PC.NURSE ---
[id number]. Pt up in chair until 2230. Ambulated with gait belt and walker SBA to bathroom then bed, tolerated activity well. Pt makes slight Ind repositions in bed. 0230 pt requested to sit up in bed, declined getting into recliner. Pt reports chronic lower back pain. Declines SOB and chest pain. No cough observed. Slept fair during shift, pt uses home c-pap. ??
[2022-09-29] MEDS: CITALOPRAM HYDROBROMIDE 20 MG TABLET 10 MG PO (09:33)
[2022-09-29] MEDS: CIPROFLOXACIN 250 MG TABLET PO ×2 (09:34→19:37)
[2022-09-29] MEDS: CARBIDOPA-LEVODOPA 25-100 TABLET 1 TAB PO ×3 (09:34→17:17)
[2022-09-29] MEDS: APIXABAN 5 MG TABLET 2.5 MG PO ×2 (09:34→19:37)
[2022-09-29] MEDS: METFORMIN 850 MG TABLET PO ×2 (09:35→17:17)
--- NOTE | 2022-09-29 13:08 | PM.IMPN1 ---
Progress Note: A&P Assessment and plan (1) COVID-19: Problem details: - not requiring supplemental oxygen, no COVID pneumonia Status: Acute (2) Weakness: Problem details: - related to COVID + comorbidities - working with therapies - hopes to go home with + increased cares, lives at [facility] (rest of family requesting TCU stay) Status: Acute (3) Elevated troponin I level: Problem details: - likely 2/2 demand myocardial ischemia, peak 0.13 - no CP Status: Acute (4) Anticoagulated by anticoagulation treatment: Problem details: - apixaban 2.5 mg orally twice daily Status: Acute (5) Severe aortic stenosis: Problem details: - recommend outpatient Cardiology follow-up for consideration of TAVR Status: Acute (6) Parkinsonian features: Problem details: - Slowly progressive coarse resting tremor of the right upper extremity and sometimes of the left. Appears parkinsonian - trial of Sinemet during last hospital stay - possibly some improvement. Continue outpatient f/u Status: Acute (7) Cognitive impairment: Problem details: - lives at [facility] [address] with , has Home Care following - may need increased cares vs TCU upon d/c Status: Acute (8) Diabetes: Problem details: - fairly well controlled (last outpatient A1C <7 05/2022) Status: Acute Plan - per above - Eliquis for ppx - TCU vs Home with HH upon discharge, appreciate input from therapies and SW Subjective Date Seen: 09/29/22 Interval history: 87-year-old male, admitted to the hospital on 09/24 for weakness and mild dyspnea in the setting of + COVID infection. Miguel continues to work with PT and OT, family discussing disposition plans (home with HH vs TCU stay). He remains stable on RA, no chest pain or cough. Tolerating po intake. No concerns for hospitalist team this morning. Exam Narrative: Exam Narrative: GEN: Alert and sitting comfortably in bedside chair HEENT: Normal external ears, EOMIs bilaterally CV: RRR, No concerning murmurs, rubs, or gallops R: LCTA bilaterally without concerning wheezing, rales, or rhonchi Skin: No concerning skin lesions or rashes on exposed skin Neuro: Tremor of upper extremities is baseline Const: Vital Signs, click to edit/add: Vital Signs - 24 hr 09/28/22 15:00 09/28/22 15:00 09/28/22 15:00 Temperature Pulse Rate 50 L Pulse Rate [Pulse Oximeter] 50 L Respiratory Rate 18 Blood Pressure [Le ft Arm] Blood Pressure [Ri ght Arm] Pulse Oximetry 92 Oxygen Delivery Me thod 09/28/22 19:00 09/28/22 23:00 09/28/22 23:00 Temperature 96.8 F L Pulse Rate Pulse Rate [Pulse Oximeter] 51 L 59 L Respiratory Rate 16 16 Blood Pressure [Le ft Arm] Blood Pressure [Ri ght Arm] 115/75 Pulse Oximetry 95 97 Oxygen Delivery Nj thod Room Air 09/28/22 23:00 09/29/22 01:41 09/29/22 03:00 Temperature 96.7 F L 96.7 F L Pulse Rate 55 L Pulse Rate [Pulse Oximeter] 59 L 53 L Respiratory Rate 20 16 Blood Pressure [Le ft Arm] 100/65 116/66 Blood Pressure [Ri ght Arm] Pulse Oximetry 97 97 Oxygen Delivery Nj thod Room Air Room Air 09/29/22 09:37 09/29/22 07:00 Temperature Pulse Rate Pulse Rate [Pulse Oximeter] 53 L Respiratory Rate 18 Blood Pressure [Le ft Arm] Blood Pressure [Ri ght Arm] 132/68 Pulse Oximetry 96 96 Oxygen Delivery Me thod
--- NOTE | 2022-09-29 14:07 | PC.NURSE ---
shift note: pt has stable vss. pt afeb. pt denies pain in chest with cough or deep breathing. Pt LS clr. sats 99% RA. Pt up 1/SBA & walker. Pt had 2 loose BM's. upper coccyx with intact mepilex due to stage 1 pressure ulcer. Pt expressing anger and frusteration with staff nurse this a.m.. Pt told nurse to shut up and get out of his room. Pt stated this a.m staff nurse's verbal tone was too loud. staff attempted to lower tone and pt stated he couldn't hear staff. Explained to pt that due to covid mask it's hard to talk. Pt advocate called and charge nurse notified of interaction. Pt apologized this afternoon by stating I hate being in the hospital. I think that's why I'm so mad today.
--- NOTE | 2022-09-29 14:50 | PC.SOCIAL ---
Spoke with pt.'s daughter Nasrin at [phone] who states she is pt.'s POA and wants to be updated on pt.'s discharge. She does not want pt. to discharge home unless he is able to care for himself as her mother will not make him do anything and he will just sit in a chair all day. Discussed there are no beds locally available and pt. will continue to rehab here as he has been a contact guard assist. Nasrin is concerned pt. will not bath at home for her mother or his grandson who is his SUGAR PRESSER. Discussed trying to get a HOUSE FURNISHINGS SUPERVISOR for bathing along with his [place] nurse and therapy at discharge if needed. Social service will continue to work on discharge planning needs.
[2022-09-29] MEDS: ROSUVASTATIN CALCIUM 10 MG TABLET 5 MG PO (19:36)
[2022-09-30] VITALS (7 sets, daily range): BP systolic 106–129; BP diastolic 54–66; PULSE 50–70; RESP 18–33; TEMP 36.3–36.9; O2SAT 93–98
--- NOTE | 2022-09-30 07:14 | PC.NURSE ---
Status [id number] Pt alert with chronic confusion. Pt has been irritable and resistive to cares, refusing to transfer into bed for the night or checking his brief for incontinence. Pt states I don't pee my pants, just leave me alone now. VSS on room air. Encouraged to wear CPAP overnight and shift weight while in the chair. Continues on Covid precautions. Intermittent resting between cares.
[2022-09-30] MEDS: METFORMIN 850 MG TABLET PO ×2 (08:28→20:09)
[2022-09-30] MEDS: APIXABAN 5 MG TABLET 2.5 MG PO ×2 (08:28→22:00)
[2022-09-30] MEDS: CARBIDOPA-LEVODOPA 25-100 TABLET 1 TAB PO ×3 (08:28→18:03)
[2022-09-30] MEDS: CIPROFLOXACIN 250 MG TABLET PO ×2 (08:29→22:00)
[2022-09-30] MEDS: CITALOPRAM HYDROBROMIDE 20 MG TABLET 10 MG PO (08:29)
--- NOTE | 2022-09-30 10:08 | PC.SOCIAL ---
Spoke with pt.'s spouse Doretha and daughter Nasrin. Pt. has been rehabbing here in the hospital and will not qualify for a TCU stay. Doretha wants to take pt. home tomorrow. A message was left with [facility] nurse Candace to resume nursing care and requested a CHIEF ENGINEER DRILLING AND RECOVERY for bathing. OT will bath pt. today. Per daughter Nasrin, pt. refuses to bath at home and his spouse Doretha has fired caregivers that try to bath pt. due to her concern with his dignity and others seeing his privates. Left a message for Shawna Hadley, pt.'s [facility] casey saw operator @ [phone] that pt. will discharge tomorrow. Also gave daughter Nasrin, Shawna's number so they can discuss memory care AL in the future because Nasrin thinks pt. is getting to be too much for her mom. A resumption of care order for nursing and an order for a CHIEF ENGINEER DRILLING AND RECOVERY will need to be faxed to [facility] tomorrow at .
--- NOTE | 2022-09-30 11:33 | PM.IMPN1 ---
Progress Note: A&P Assessment and plan (1) COVID-19: Problem details: - not requiring supplemental oxygen, no COVID pneumonia - primary symptom is weakness Status: Acute (2) UTI (urinary tract infection): Problem details: - proteus and pseudomonas growing on 09/24 urine culture - cipro (1/3) Status: Acute (3) Weakness: Problem details: - related to COVID + comorbidities - working with therapies Status: Acute (4) Elevated troponin I level: Problem details: - likely 2/2 demand myocardial ischemia, peak 0.13 - no CP Status: Acute (5) Anticoagulated by anticoagulation treatment: Problem details: - apixaban 2.5 mg orally twice daily Status: Acute (6) Severe aortic stenosis: Problem details: - recommend outpatient Cardiology follow-up for consideration of TAVR (scheduled for October) Status: Acute (7) Parkinsonian features: Problem details: - Slowly progressive coarse resting tremor of the right upper extremity and sometimes of the left, RUE noted to be pill rolling on 09/30 - trial of Sinemet during last hospital stay - possibly some improvement, continuing this with routine outpatient f/u Status: Acute (8) Cognitive impairment: Problem details: - chronic, family aware Status: Acute (9) Diabetes: Problem details: - fairly well controlled (last outpatient A1C <7 05/2022) - on home Metformin, not requiring any SSI Status: Acute Plan - per above - Eliquis for ppx - home with /home care tomorrow Subjective Date Seen: 09/30/22 Interval history: 87-year-old male, admitted to the hospital on 09/24 for weakness and mild dyspnea in the setting of + COVID infection. Doretha is present for visit today. Patient is currently working well with therapies and no longer qualifies for TCU stay upon discharge; he will be discharging home with and home health care tomorrow. He remains stable on RA, no chest pain or cough, tolerating po intake. No concerns for hospitalist team this morning. Exam Narrative: Exam Narrative: GEN: Alert and answering questions appropriately, eating chocolate ice cream HEENT: Normal external ears, EOMIs bilaterally CV: RRR, No concerning murmurs, rubs, or gallops R: LCTA bilaterally without concerning wheezing, rales, or rhonchi. Air movement adequate Ext: wwp, stable 2+ pitting edema BLE Skin: No concerning skin lesions or rashes on exposed skin Neuro: Known coarse tremor of right upper extremity (interestingly, noted to be a pill rolling tremor today) Psych: Appropriate Const: Vital Signs, click to edit/add: Vital Signs - 24 hr 09/29/22 17:21 09/29/22 15:00 09/29/22 15:00 Temperature 96.8 F L Pulse Rate [Pulse Oximeter] 54 L 54 L Respiratory Rate 18 18 Blood Pressure [Ri ght Arm] 146/113 H Pulse Oximetry 96 96 Oxygen Delivery Me thod Room Air 09/29/22 19:00 09/29/22 22:42 09/30/22 00:39 Temperature 97.5 F L 97.5 F L Pulse Rate [Pulse Oximeter] 51 L 51 L 52 L Respiratory Rate 18 18 18 Blood Pressure [Ri ght Arm] 103/51 L 106/58 L Pulse Oximetry 97 96 Oxygen Delivery Me thod Room Air Room Air 09/30/22 00:41 09/30/22 04:40 Temperature 97.7 F Pulse Rate [Pulse Oximeter] 50 L Respiratory Rate 18 Blood Pressure [Ri ght Arm] 116/54 L Pulse Oximetry 96 96 Oxygen Delivery Me thod Room Air
--- NOTE | 2022-09-30 19:50 | PC.NURSE ---
Nursing Care Hours: [id number] Pt this shift calm and cooperative with cares. Agreeable to assessment, VSS. Refused breakfast but agreed to an Ensure, drank 100%. Set off chair alarm to go to bathroom x2, justowriter operator reminded pt to use call light. Gps Field Data Collector observed pt gait, steady with walker needing SB assist only. Mepilex on L glute CDI.
[2022-09-30] MEDS: ROSUVASTATIN CALCIUM 10 MG TABLET 5 MG PO (22:01)
[2022-10-01 00:56] VITALS: O2SAT 95
[2022-10-01 01:00] VITALS: BP 116/69; PULSE 69; RESP 18; TEMP 36.7; O2SAT 95
[2022-10-01 03:40] VITALS: BP 118/77; PULSE 72; RESP 20; TEMP 36.8; O2SAT 93
[2022-10-01 07:00] VITALS: RESP 20; O2SAT 95
--- NOTE | 2022-10-01 07:02 | PC.NURSE ---
pt sat in chair most of shift, prompted several times through the night to get into bed but he declined. Declined 1 unit insulin at bedtime. Denies pain or discomfort. RA, no SOB.
[2022-10-01 09:20] VITALS: BP 128/69; PULSE 51; RESP 20; O2SAT 95
[2022-10-01] MEDS: CITALOPRAM HYDROBROMIDE 20 MG TABLET 10 MG PO (09:35)
[2022-10-01] MEDS: APIXABAN 5 MG TABLET 2.5 MG PO (09:36)
[2022-10-01] MEDS: CIPROFLOXACIN 250 MG TABLET PO (09:36)
[2022-10-01] MEDS: CARBIDOPA-LEVODOPA 25-100 TABLET 1 TAB PO (09:37)
[2022-10-01] MEDS: METFORMIN 850 MG TABLET PO (09:37)
--- NOTE | 2022-10-01 13:51 | PM.DS1 ---
DS: Providers Provider Date Seen: 10/01/22 Date of admission: 09/26/22 15:21 Primary care physician: Alec Nguyen MD Admitting Clinician: Terence Yoder MD Consults: PT and OT Attending Physician on discharge: Rachael Gee MD Date of Discharge: 10/01/22 DS: Diagnosis Discharge Diagnosis (1) COVID-19: Status: Acute Problem details: - stable on room air, no COVID pneumonia - primary symptom is weakness (2) UTI (urinary tract infection): Status: Acute Problem details: - proteus and pseudomonas growing on 09/24 urine culture - cipro (09/28) (3) Weakness: Status: Acute Problem details: - related to COVID + comorbidities - working with therapies, discharged with home health (4) Elevated troponin I level: Status: Acute Problem details: - likely 2/2 demand myocardial ischemia, peak 0.13 - no CP (5) Anticoagulated by anticoagulation treatment: Status: Acute Problem details: - apixaban 2.5 mg orally twice daily (6) Severe aortic stenosis: Status: Acute Problem details: - recommend outpatient Cardiology follow-up for consideration of TAVR (scheduled for October) (7) Parkinsonian features: Status: Acute Problem details: - Slowly progressive coarse resting tremor of the right upper extremity and sometimes of the left, RUE noted to be pill rolling on 09/30 - trial of Sinemet during last hospital stay - possibly some improvement, continuing this with routine outpatient f/u (8) Cognitive impairment: Status: Acute Problem details: - chronic, family aware (9) Diabetes: Status: Acute Problem details: - fairly well controlled (last outpatient A1C <7 05/2022) - on home Metformin, did not require any sliding scale insulin during stay DS: Summary Hospital Course Hospital Course: 87-year-old male, presented to the hospital on 09/24/2022 with weakness in the setting of COVID infection. He was found to have a UTI that was treated with Cipro, no complications. Patient did well during hospital stay, worked with therapies and remained stable on room air. Comorbidities noted above, unchanged. He is discharged home in improved condition with his and home health today. Status at Discharge Functional status at discharge: uses cane/walker Overall status at discharge: patient is progressing back to baseline Time Spent with Patient Time attestation: Total time spent providing and/or coordinating discharge services: Time spent: Greater than 30 minutes Specific discharge activities: home health referral, documentation, care coordination Exam Narrative: Exam Narrative: Patient is sitting comfortably in bedside chair, nontoxic in appearance Bilateral (R>L) upper extremity tremor stable and baseline Const: Vital Signs, click to edit/add: Vital Signs - 24 hr 09/30/22 15:00 09/30/22 15:00 09/30/22 15:00 Temperature Pulse Rate [Pulse Oximeter] 52 L 67 Respiratory Rate 32 H Blood Pressure [Le ft Arm] Blood Pressure [Ri ght Arm] 114/65 Pulse Oximetry 97 95 Oxygen Delivery Me thod Room Air 09/30/22 20:11 10/01/22 00:56 10/01/22 01:00 Temperature 98.4 F 98.1 F Pulse Rate [Pulse Oximeter] 63 69 Respiratory Rate 18 18 Blood Pressure [Le ft Arm] Blood Pressure [Ri ght Arm] 115/59 L 116/69 Pulse Oximetry 93 95 95 Oxygen Delivery Me thod Room Air Room Air 10/01/22 03:40 10/01/22 09:20 10/01/22 07:00 Temperature 98.2 F Pulse Rate [Pulse Oximeter] 72 51 L Respiratory Rate 20 20 Blood Pressure [Le ft Arm] 128/69 Blood Pressure [Ri ght Arm] 118/77 Pulse Oximetry 93 95 95 Oxygen Delivery Me thod Room Air Room Air 10/01/22 07:00 Temperature Pulse Rate [Pulse Oximeter] Respiratory Rate 20 Blood Pressure [Le ft Arm] Blood Pressure [Ri ght Arm] Pulse Oximetry Oxygen Delivery Me thod Discharge Plan Discharge Disposition: Home Health Service Date of Admission: 09/26/22 15:21 Attending Provider on Discharge: Rachael Gee Primary Care Provider: Alec Nguyen Condition: Stable Anticipated Discharge Date/Time: 10/01/22 12:00 Discharge Medications: New ciprofloxacin HCl 250 mg Tablet 250 mg PO BID 4 Days Qty: 8 0RF Continued acetaminophen 500 mg tablet 500 - 1,000 mg PO Q6H PRN Eliquis 2.5 mg tablet 2.5 mg PO BID citalopram 10 mg tablet 10 mg PO DAILY metformin 850 mg tablet 850 mg PO BIDWM diphenhydramine-acetaminophen [Tylenol PM Extra Strength] 25-500 mg tablet 1 tab PO QHS rosuvastatin 5 mg tablet 5 mg PO HS nitroglycerin 0.4 mg tablet, sublingual 0.4 mg sublingual Q5M PRN Rx Instructions: do not exceed 3 doses per episode carbidopa-levodopa 25-100 mg Tablet 1 tab PO TIDWM Qty: 90 0RF sennosides-docusate sodium [Stool Softener-Laxative] 8.6-50 mg Tablet 1 tab PO BID PRNQty: 60 0RF Discontinued cholecalciferol (vitamin D3) 25 mcg (1,000 unit) capsule 25 mcg PO DAILY Hold Instructions: per med list zinc gluconate 50 mg tablet 50 mg PO DAILY Hold Instructions: Doctor's Order Discharge Orders: Discharge Order (Routine); Ordered 10/01/22 Ordered By: Rachael Gee Patient Education: Ciprofloxacin (By mouth), Urinary Tract Infection in Older Adults (DC), COVID-19 (Coronavirus Disease 2019) (DC) Additional Instructions: Resume Home care (Nursing, LEAD SLOT TECHNICIAN) upon discharge Activity Level: Activity as Tolerated Discharge Diet: Diabetic Follow Up Appointments: Alec Nguyen MD [Primary Care Provider] - 10/15/22 11:45 am Forms: [employer] (P)th Info Instructions
--- NOTE | 2022-10-01 15:35 | PC.NURSE ---
Pt alert and oriented to self and spouse. Pt up with A1 walker and gait belt. Education given verbally and written to patient and spouse, no further questions. Spouse understands discharge instructions and follow up appointments. D/C'd at 1145.
--- NOTE | 2022-10-01 21:10 | PC.SOCIAL ---
Discharge planning- Pt will be discharging today. Resumption of care and COKE DRAWER HAND order were faxed to [facility] at [phone]. Social work will follow up as necessary.
== END 2022-10-01 11:45 | disposition home health service (06) | DRG 137 ==
LOC: ED 22:17 → MEDSURG 22:46
PROVIDERS: Family Medicine; Admitting Provider Internal Medicine; Emergency Provider Family Medicine; PCP Surgery; Visit Provider Internal Medicine
DX: U07.1 COVID-19 (principal); R53.1 Weakness; N39.0 Urinary tract infection, site not specified; B96.5 Pseudomonas (aeruginosa) (mallei) (pseudomallei) as the cause of diseases classified elsewhere; B96.4 Proteus (mirabilis) (morganii) as the cause of diseases classified elsewhere; I24.8 Other forms of acute ischemic heart disease; E11.9 Type 2 diabetes mellitus without complications; G31.84 Mild cognitive impairment of uncertain or unknown etiology; I10 Essential (primary) hypertension; G47.33 Obstructive sleep apnea (adult) (pediatric); G20 Parkinson's disease; R01.1 Cardiac murmur, unspecified; Z79.84 Long term (current) use of oral hypoglycemic drugs; Z79.01 Long term (current) use of anticoagulants; I35.0 Nonrheumatic aortic (valve) stenosis; M48.00 Spinal stenosis, site unspecified; I25.2 Old myocardial infarction; E78.5 Hyperlipidemia, unspecified; Z95.1 Presence of aortocoronary bypass graft; Z86.718 Personal history of other venous thrombosis and embolism
CPT/HCPCS: 36415; 71045; 80048; 80076; 81001; 82330; 82565; 82803; 82962; 83605; 83735; 83880; 84145; 84443; 84484; 85018; 85025; 85027; 85379; 85651; 86140; 86308; 87040; 87086; 87186; 87426; 87502; 87634; 87635; 93005; 94761; 97110; 97116; 97161; 97165; 97535; 99285; G0378; A9270; J7050; J7120

== ENCOUNTER 2022-10-10 20:12 | Emergency (ER) | payer BC, SELFPAY ==
[2022-10-10 20:30] VITALS: BP 142/107; PULSE 74; RESP 20; TEMP 36.7; O2SAT 98
[2022-10-10] MEDS: 0.9 % SODIUM CHLORIDE 1000 ml 1,000 ML IV (21:37)
[2022-10-10 21:44] LABS: Basophils Absolute Auto 0.01 K/uL (0.00-0.30); Basophils Percent Auto 0.1 % (0.0-3.0); Eosinophils Absolute Auto 0.15 K/uL (0.00-0.50); Eosinophils Percent Auto 1.9 % (0.0-7.0); Hematocrit 39.2 % (37.0-53.0); Hemoglobin* 12.9 gm/dL (13.5-17.5); Immature Granulocytes Abs Auto 0.04 K/uL (0.00-0.30); Immature Granulocytes Pct Auto 0.5 %; Lymphocytes Percent Auto 13.3 % (20-44); Mean Corpuscular HGB Conc 33 gm/dL (32-36); Mean Corpuscular Hemoglobin 31 pg (26-34); Mean Corpuscular Volume 95 fL (80-100); Monocytes Percent Auto 9.3 % (0.0-11.0); Neutrophils Percent Auto 74.9 % (42.0-72.0); Platelet Count* 210 K/uL (140-440); RDW Coefficient of Variation % 12.4 % (11.5-15.5); Red Blood Count 4.12 m/uL (4.30-5.90); White Blood Count* 8.04 K/uL (4.50-11.00)
[2022-10-10 21:47] LABS: Slide Review Reflex No
[2022-10-10 21:56] LABS: Chloride* 111 mmol/L (96-114)
--- NOTE | 2022-10-10 21:56 | ED.GENADULT ---
HPI - General Adult General Chief complaint: Skin/Abscess/Foreign Body Stated complaint: Fever, Stomach pain Time Seen by Provider: 10/10/22 20:16 History of Present Illness HPI narrative: 87-year-old man presenting to the emergency department accompanied by spouse with concern of ?I just do not feel good?. This is been present over the last week since discharge from the hospital. Admittedly he ?feel like horse shit? which is the same as yesterday and the day before, basically since discharge. Has a hard time saying exactly what does not feel good. Just does not feel right. Was admitted with urinary tract infection and treated with course of ciprofloxacin now completed. Spouse is wondering whether not it adequately treated his infection. Record shows Proteus and Pseudomonas in urine culture which was indeed sensitive to ciprofloxacin. While seated at a late supper tonight she asked him what was hurting. Apparently has been having some pain in the low abdomen sounds like this is related to some intertrigo at least the area as noted on exam. She also happened to check his temporal temperature noting it to be at 100. He did not have a fever on arrival to the ER. Has been treating this intertrigo with gold [place] powder and an unspecified prescription powder. He also has had chronic low back pain. He has 2 days ago developed a little blood and an open area on his coccyx. He is not constipated and spouse has been doing her best to keep him clean. He does not feel that he is more weak than usual. Has been struggling with a diagnosis of dementia and Parkinson's in particular with a resting tremor in the right hand. Thought now not to have Parkinson's and was discontinued from Sinemet 4 days ago. Seen in clinic 2 days ago in discharge follow-up and anticipated obtaining a urinalysis. Was not able to produce urine and so took home sample cup but they note now the clinics are closed. He is not drinking very much. And has not really been making much urine reportedly. Seems he is tired. He is not short of breath than is not experiencing chest pain. During hospitalization also completed a cardiac echo. Noted to have 45-50% ejection fraction with moderately increased thickening of the left ventricle and mildly reduced global systolic function. He has severe aortic stenosis. He is not experiencing lightheadedness or headache. Was diagnosed with COVID associated weakness/fatigue. COVID diagnosis was made 2 weeks ago. He is to follow up in 3 days time with Cardiology. On 09/14/2022 urine culture was collected that ultimately grew out E coli with resistance to fluoroquinolones. Related Data Home Medications Medication Instructions Recorded Confirmed acetaminophen 500 mg tablet 500 - 1,000 mg PO Q6H PRN 09/13/22 09/24/22 apixaban 2.5 mg tablet (Eliquis) 2.5 mg PO BID 09/13/22 09/24/22 citalopram 10 mg tablet 10 mg PO DAILY 09/13/22 09/24/22 diphenhydramine 25 1 tab PO QHS 09/13/22 09/24/22 mg-acetaminophen 500 mg tablet (Tylenol PM Extra Strength) metformin 850 mg tablet 850 mg PO BIDWM 09/13/22 09/24/22 rosuvastatin 5 mg tablet 5 mg PO HS 09/13/22 09/24/22 nitroglycerin 0.4 mg sublingual 0.4 mg sublingual Q5M PRN 09/14/22 09/25/22 tablet Previous Rx's Medication Instructions Recorded carbidopa 25 mg-levodopa 100 mg 1 tab PO TIDWM #90 tabs 09/18/22 tablet sennosides 8.6 mg-docusate sodium 1 tab PO BID PRN #60 tabs 09/18/22 50 mg tablet (Stool Softener-Laxative) ciprofloxacin HCl 250 mg tablet 250 mg PO BID 4 days #8 tabs 10/01/22 Allergies Allergy/AdvReac Type Severity Reaction Status Date / Time No Known Drug Allergies Allergy Verified 09/24/22 20:59 Review of Systems Status of ROS: Reports: 10 or more systems reviewed and unremarkable except as noted in History and below [facility] Medical History Abnormal echocardiogram Anticoagulated by anticoagulation treatment Cognitive impairment Colitis Diabetes Diverticulitis DVT of upper extremity (deep vein thrombosis) Health care directive on file Heart murmur Hyperlipidemia Hypertension NSTEMI (non-ST elevated myocardial infarction) OSWALDO (obstructive sleep apnea) Osteoarthritis Pacemaker Parkinsonian features Severe aortic stenosis Spinal stenosis Weakness Surgical History H/O hernia repair S/P CABG x 3 S/P cholecystectomy S/P small bowel resection Social History Narrative: Lives with at [address]. 3 grown children. No ETOH, no tobacco use. 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 DNR/DNI Highest level of school completed/degree received: high school graduate Smoking Status: Former smoker What tobacco products do you use: cigarettes Years smoked: 20 Smoking quit date/years: >15 years ago, cigars and pipe Do you use any of these nicotine containing products: None Second hand tobacco smoke exposure: No How often do you have a drink containing alcohol: never How often do you have six or more drinks on one occasion: Never AUDIT-C Alcohol total score: 0 Non-prescribed substance use: denies use Caffeine: Yes (Coffee) service: Yes Exam Narrative: Exam Narrative: Does appear a little tired. The rest noticeable pill rolling type tremor of the right hand. As I place my hand over his is able to stop it. He is pleasantly disagreeable. Initially I thought him to be hard of hearing but clearly not the case. Will congestion in his throat. At times tries to clear this with weak cough. Cranial nerves 2-12 look to be intact. He is breathing easily. Dentures in place. Oropharynx is little dry. Lungs appear to be clear. Heart generally regular rate with an occasional irregular beat. 2/6 systolic ejection murmur loudest at right sternal border. Abdomen is soft and overweight. No masses appreciated. Well-healed surgical scars are evident. He is sore to palpation on the lower abdominal fold consistent with mild inflammation diffusely with what might be some mild satellite or peripheral speckling. Do not see skin breakdown here. There is some cream or smegma present. There is not notable induration or calor. Looks more inflamed than a secondary cellulitis. Is not tender to palpation over the low back though is mildly erythematous over the coccyx and upper buttock area. There is little less than 1 cm breakdown in the skin circular lesion in the left upper gluteal fold. Extremities are moves without difficulty. Well perfused. Has long nails on his hands. The lower extremities are without edema. Regularly shifting positions in bed due to combination of low back and buttock discomfort. Const: Vital Signs, click to edit/add: Vital Signs - 24 hr 10/10/22 20:30 10/10/22 22:33 10/10/22 23:43 Temperature 98.1 F Pulse Rate [Right Pulse Oximeter] 74 68 67 Respiratory Rate 20 18 18 Blood Pressure [Le ft Upper Arm] 142/107 H 155/76 H 153/80 H Pulse Oximetry 98 95 95 Oxygen Delivery Me thod Room Air Room Air Room Air Documenting provider has reviewed patient's vital signs: yes Course Vital Signs Vital signs: Initial Vital Signs Temperature 98.1 F 10/10/22 20:30 Temperature Source Temporal Artery Scan 10/10/22 20:30 Pulse Rate 74 10/10/22 20:30 Respiratory Rate 20 10/10/22 20:30 Blood Pressure 142/107 H 10/10/22 20:30 Blood Pressure Mean 118 10/10/22 20:30 Blood Pressure Position High-Fowlers 10/10/22 20:30 Pulse Oximetry 98 10/10/22 20:30 Oxygen Delivery Method 10/10/22 20:30 Vital Signs Temperature 98.1 F 10/10/22 20:30 Pulse Rate 74 10/10/22 20:30 Respiratory Rate 20 10/10/22 20:30 Blood Pressure 142/107 H 10/10/22 20:30 Pulse Oximetry 98 10/10/22 20:30 Oxygen Delivery Method 10/10/22 20:30 Temperature 98.1 F 10/10/22 20:30 Pulse Rate 67 10/10/22 23:43 Respiratory Rate 18 10/10/22 23:43 Blood Pressure 153/80 H 10/10/22 23:43 Pulse Oximetry 95 10/10/22 23:43 Oxygen Delivery Method 10/10/22 23:43 Medical Decision Making MDM Narrative Medical decision making narrative: This may simply be lingering COVID weakness amplifying underlying health problems in the setting of dementia. Certainly numerous things to be making him feel unwell. Intertrigo is clearly bothering him. Has developed stage 1 and looks like starting into stage II pressure ulcer on the coccyx. General malaise. It does not look as though there is otherwise anything new going on. Monitoring in the ER. Will look for red flags and labs. Urinalysis which was intended to be done in clinic. A bladder scanned for about 70 mL. I do think that he is dehydrated though too. Hoping that a L of fluids would help him feel better. Before these get out of hand will need to probably be seen at wound clinic. Mildly elevated potassium. Apparently has had this happen before. Unclear as to why at this point. Looks have decent renal function. Urinalysis looks to be infected. IV infiltrated. Mr. Sepulveda wanted to try to drink. He did manage about 18 oz of water. With findings in urine today and last 2 urine cultures would support effectiveness of cephalosporin. So was given 1 g Rocephin and will be initiated on cephalexin. Urine culture pending. Placed DuoDerm dressing on sacrum. Lab Data Lab results reviewed: Yes I reviewed the patient's lab results Labs: Lab Results 10/10/22 10/10/22 10/10/22 Range/Units 20:25 21:25 21:25 WBC 8.04 (4.50-11.00) K/uL RBC 4.12 L (4.30-5.90) m/uL Hgb 12.9 L (13.5-17.5) gm/dL Hct 39.2 (37.0-53.0) % MCV 95 (80-100) fL MCH 31 (26-34) pg MCHC 33 (32-36) gm/dL RDW Coeff of Brian 12.4 (11.5-15.5) % Plt Count 210 (140-440) K/uL Neut % (Auto) 74.9 H (42.0-72.0) % Lymph % (Auto) 13.3 L (20-44) % [place] % (Auto) 9.3 (0.0-11.0) % Eos % (Auto) 1.9 (0.0-7.0) % Baso % (Auto) 0.1 (0.0-3.0) % Neut # (Auto) 6.00 (1.7-7.0) K/uL Lymph # (Auto) 1.10 (0.90-2.90) K/uL [place] # (Auto) 0.70 (0.00-0.90) K/UL Eos # (Auto) 0.15 (0.00-0.50) K/uL Baso # (Auto) 0.01 (0.00-0.30) K/uL Sodium 143 (135-149) mmol/L Potassium 5.2 H (3.6-5.1) mmol/L Chloride 111 (96-114) mmol/L Carbon Dioxide 25 (20-32) mmol/L BUN 21 (7-30) mg/dL Creatinine 1.2 (0.5-1.5) mg/dL Estimated GFR 59 ml/min Glucose 114 (60-115) mg/dL Calcium 9.4 (8.4-10.6) mg/dL Total Bilirubin 0.9 (0.1-1.5) mg/dL Direct Bilirubin 0.3 (0.0-0.5) mg/dL AST 33 (12-35) U/L ALT 24 (4-50) U/L Alkaline Phosphatase 90 (40-150) U/L C-Reactive Protein 0.8 (0.5-1.0) mg/dL NT-Pro-B Natriuret Pep 2500 pg/mL Total Protein 6.9 (6.0-8.3) g/dL Albumin 4.0 (3.3-5.0) g/dL Urine Color Yellow (Yellow) Urine Appearance Cloudy A (Clear) Urine pH 5.0 (5.0-8.5) Ur Specific [place] 1.025 (1.000-1.030) Urine Protein Negative (Negative) Urine Glucose (UA) Negative (Negative) Urine Ketones Trace A (Negative) Urine Blood Trace-lysed A (Negative) Urine Nitrite Positive A (Negative) Urine Bilirubin Negative (Negative) Urine Urobilinogen 1.0 (0.2-1.0) Ur Leukocyte Esterase 2+ A (Negative) Urine RBC 0-2 (0-2) Urine WBC 25-50 A (0-5) Ur Squamous Epith Cells Few (None-Few) Urine Bacteria Moderate A (None) Urine Mucus Few A (None) Ethyl Alcohol < 0.01 L (0.01-0.03) % ECG Data Attestation: I personally reviewed and interpreted this ECG as follows: (Ventricular paced rhythm rate of 63) Discharge Plan Discharge Clinical Impression: Malaise and fatigue, Intertrigo, Pressure ulcer, Cystitis, Dehydration, Hyperkalemia Patient Disposition: Home w/ Parent or Adult Condition: Improved Additional Instructions: I still think it is important to stay well hydrated. I think would be worth discussing this a little bit more at your cardiology followup. I made a referral to the wound clinic to address the sacral pressure ulcer that is developing. I would also like them to address the redness that is on your abdomen. You need to be probably on a steroid cream as it is painful though I do not think it is infected. Keeping this dry is of course important. Using a steroid cream when it gets more painful/inflamed can be helpful but can also flare fungal organisms if used alone. I think you should also be using an antifungal powder; you may already be doing this but it is unclear to me. Barrier dressings might also be helpful. Maybe just keeping it dry with cornstarch for awhile would be good. Some people use toasted whole wheat flour as a drying agent. Please call to confirm appointment with wound clinic tomorrow if possible. A urine culture will be pending here. I would recheck your potassium level in about a week. Be aware of what foods/drink you might be ingesting that would be higher in potassium. This might require a medication review as well although I am not sure which medication that you are currently taking would contribute. Your kidneys look to be doing pretty well today. Cephalexin from [facility] as antibiotic. Prescriptions: No Action acetaminophen 500 mg tablet 500 - 1,000 mg PO Q6H PRN Eliquis 2.5 mg tablet 2.5 mg PO BID citalopram 10 mg tablet 10 mg PO DAILY metformin 850 mg tablet 850 mg PO BIDWM diphenhydramine-acetaminophen [Tylenol PM Extra Strength] 25-500 mg tablet 1 tab PO QHS rosuvastatin 5 mg tablet 5 mg PO HS nitroglycerin 0.4 mg tablet, sublingual 0.4 mg sublingual Q5M PRN Rx Instructions: do not exceed 3 doses per episode carbidopa-levodopa 25-100 mg Tablet 1 tab PO TIDWM Qty: 90 0RF sennosides-docusate sodium [Stool Softener-Laxative] 8.6-50 mg Tablet 1 tab PO BID PRNQty: 60 0RF ciprofloxacin HCl 250 mg Tablet 250 mg PO BID 4 Days Qty: 8 0RF Follow Up/Referrals: Alec Nguyen MD [Primary Care Provider] - Stand Alone [facility] Inst[facility]
[2022-10-10 21:57] LABS: Potassium* 5.2 mmol/L (3.6-5.1); Sodium* 143 mmol/L (135-149)
[2022-10-10 21:59] LABS: Creatinine* 1.2 mg/dL (0.5-1.5); Estimated Glomerular Filt Rate 59 ml/min
[2022-10-10 22:00] LABS: Alanine Aminotransferase* 24 U/L (4-50); Alkaline Phosphatase* 90 U/L (40-150); Aspartate Amino Transferase* 33 U/L (12-35); Bilirubin Direct* 0.3 mg/dL (0.0-0.5); Bilirubin Total* 0.9 mg/dL (0.1-1.5); Blood Urea Nitrogen* 21 mg/dL (7-30); Calcium* 9.4 mg/dL (8.4-10.6); Carbon Dioxide* 25 mmol/L (20-32); Glucose* 114 mg/dL (60-115); Total Protein* 6.9 g/dL (6.0-8.3)
[2022-10-10 22:03] LABS: C Reactive Protein* 0.8 mg/dL (0.5-1.0)
[2022-10-10 22:08] LABS: Ethanol* < 0.01 % (0.01-0.03)
[2022-10-10 22:10] LABS: NT Pro B Type NatriureticPept* 2500 pg/mL
--- NOTE | 2022-10-10 22:12 | ED.NURSE ---
Patient's IV line to right AC infiltrated with NS running. IV discontinued and gauze and coban applied. Patient refusing second IV placement for IV hydration. MD updated. Patient was able to drink one full glass of water. Will provide patient with additional glass of water. Patient assisted to restroom.
[2022-10-10 22:33] VITALS: BP 155/76; PULSE 68; RESP 18; O2SAT 95
[2022-10-10 22:35] LABS: Appearance Urine Cloudy (Clear); Bilirubin Urine Negative (Negative); Blood Urine Trace-lysed (Negative); Color Urine Yellow (Yellow); Glucose Urine Negative (Negative); Ketones Urine Trace (Negative); Leukocyte Esterase Urine 2+ (Negative); Nitrite Urine Positive (Negative); Protein Urine Negative (Negative); Specific Gravity Urine 1.025 (1.000-1.030)
[2022-10-10 22:46] LABS: Bacteria Urine Moderate; Mucus Urine Few; RBC Urine 0-2 (0-2); Squamous Epithelial Cell Urine Few (None-Few); WBC Urine 25-50 (0-5)
[2022-10-10] MEDS: cefTRIAXone 1 GM VIAL IM (23:25)
[2022-10-10 23:43] VITALS: BP 153/80; PULSE 67; RESP 18; O2SAT 95
--- NOTE | 2022-10-10 23:45 | ED.NURSE ---
Mepilex applied to buttock
== END 2022-10-11 00:33 | disposition home or self-care (01) ==
PROVIDERS: Emergency Provider Family Medicine; PCP Surgery
DX: R53.81 Other malaise (principal); R53.83 Other fatigue; L89.159 Pressure ulcer of sacral region, unspecified stage; N30.90 Cystitis, unspecified without hematuria; E86.0 Dehydration; E87.6 Hypokalemia
CPT/HCPCS: 36415; 80048; 80076; 81001; 82077; 83880; 85025; 86140; 87086; 87186; 93005; 96361; 96372; 96374; 99284; 99285; J0696; J7030

== ENCOUNTER 2022-10-14 08:58 | Outpatient (CLI) | payer BC, SELFPAY | END 2022-10-14 08:59 | disposition home or self-care (01) | PROVIDERS: PCP Surgery; Referring Provider Family Medicine; Visit Provider Nurse Practitioner Family | DX: E11.622 Type 2 diabetes mellitus with other skin ulcer (principal); L89.153 Pressure ulcer of sacral region, stage 3; R53.1 Weakness; R26.9 Unspecified abnormalities of gait and mobility; Z79.84 Long term (current) use of oral hypoglycemic drugs | CPT/HCPCS: 99214 ==

== ENCOUNTER 2022-10-25 09:58 | Outpatient (RCR) | payer BC, SELFPAY ==
--- NOTE | 2023-01-03 13:48 | REH.OT ---
OT: Follow up call with patient's spouse who is primary caregiver, that they obtained recommended DME and patient has been using consistently to aid in maintaining skin integrity. Spouse does not indicate need for additional DME needs for positioning at this time.
== END 2023-01-04 09:51 | disposition home or self-care (01) ==
PROVIDERS: PCP Surgery; Visit Provider Nurse Practitioner Family
DX: R53.1 Weakness (principal); Z51.89 Encounter for other specified aftercare
CPT/HCPCS: 97165

== ENCOUNTER 2022-10-28 08:59 | Outpatient (CLI) | payer BC, SELFPAY | END 2022-10-28 09:00 | disposition home or self-care (01) | PROVIDERS: PCP Surgery; Visit Provider Nurse Practitioner Family | DX: E11.622 Type 2 diabetes mellitus with other skin ulcer (principal); L89.153 Pressure ulcer of sacral region, stage 3; R53.1 Weakness; Z79.84 Long term (current) use of oral hypoglycemic drugs | CPT/HCPCS: 99212 ==

== ENCOUNTER 2023-03-24 07:51 | Outpatient (CLI) | payer BC, SELFPAY ==
--- OUTSIDE RECORDS SUMMARY | 2023-03-24 07:53 | XMS_ITS | Continuity of Care Document ---
Author Name Unknown Organization [facility] Address [address] [place] [id number] Phone Care Team Providers Care Licensed Guide Name Role Phone Karl Warren MD Unavailable Unavailable Allergies, Adverse Reactions, Alerts Substance Reaction Status Criticality sitagliptin Rash Active No Information atorvastatin Muscle weakness Active No Informati on Medications Medication Instructions Dosage Effective Dates (start - stop) Status Comments ASPIRIN (unknown strength) Not Available - Active CLOTRIMAZOLE-BETAMETHA SONE (unknown strength) Not Available - Active METFORMIN HCL (unknown strength) Not Available - Active GLIPIZIDE (unknown strength) Not Available - Active VITAMIN D2 (unknown strength) Not Available - Active Procedures Procedure Date Office/Outpatient Visit,[facility] 2015 X-Ray Exam Lwr Spine, Min 4 Views Office consultation, low Advance Directives Directive Yes / No Effective Date File Name No Information Encounters Encounter Description Practice Location Reason(s) For Visit Diagnoses Date Provider Providers Copied on Encounter [facility], [address], [place], [place], [id number], [place] tel:[phone] [facility] No Information Briana Barajas. [facility], [address] [place] [address], [address], [place], [id number] , [place]. tel:[phone] Office/Outpat ient Visit,[facility], [address], [place], [place], [id number], tel:[phone] [facility] Spinal stenosis, lumbar regionLow back painSpondylol isthesis, lumbar region Briana Barajas. [facility], [address], [address], [place], [place], [id number] , [place]. tel:[phone] Referring Provider: Karl Yoon, [facility] [address], [address], [place], [address] . tel:[phone] Office consultation, low Z [facility], [address], [place], [address], [place] tel:[phone] No Information David Vidal. [facility], [address], [address], [place], [place], [id number] , [place]. tel:[phone] Referring Provider: Derek Lindsay, [address], [place], [address]. tel:[phone] Family History Family Member Type Diagnosis Age At Onset No Information Payers Payer name Insurance type Covered alliance party ID Authoriza ticoleen(s) [employer] [facility] [place] [id number] Social History Type Description Quantity Date Captured Comments Sex Male Smoking Status No Information Chief Complaint And Reason For Visit No Information Reason For Referral Reason For Referral No Information Plan Of Treatment Date Type Action Status Future Order: Radiology Order AP Lateral Lumbar (APLatLumb), Ordered on: Ordered History Of Present Illness Encounter Date Complaint History Of Prese nt Illness No Information Functional Status Date Functional Assessmen t No Information Instructions Date Instruction Additional Infor mation Weight Management Education Rela meliza to Overweight Weight management: I nstructed to return to General Practitioner timeframe: 1 Month. Related to Overweight Weight Management Education Rela meliza to Overweight Weight management: I nstructed to return to General Practitioner timeframe: 1 Month. Related to Overweight Assessments Type Assessment Date No Information Patient Care Teams Name Effective Dates (start - stop) Status Members No Information
== END 2023-03-24 07:52 | disposition home or self-care (01) ==
LOC: WOUND 07:51
PROVIDERS: PCP Surgery; Visit Provider Family Medicine
DX: L89.322 Pressure ulcer of left buttock, stage 2 (principal)
CPT/HCPCS: 97597; 99214

== ENCOUNTER 2023-08-03 21:00 | Observation (INO) | payer BC, SELFPAY ==
[2023-08-03 21:18] VITALS: BP 131/106; RESP 12; TEMP 36.8; O2SAT 95; BMI 34.4
--- NOTE | 2023-08-03 21:48 | CRLHL7_ITS ---
For Patients: As a result of the Cures Act, medical imaging exams and procedure reports are released immediately into your electronic medical record. You may view this report before your referring provider. If you have questions, please contact your health care provider. INDICATION: Cough, confusion. TECHNIQUE: Chest 2 views. COMPARISON: September 24, 2022. FINDINGS: Cardiovascular and mediastinum: Stable heart size and vasculature. Left chest wall pacemaker device. Lungs and pleural spaces: Lungs are clear. No sign of infiltrate or mass. No sign of pleural effusion. No pneumothorax. Bones and soft tissues: No significant findings. IMPRESSION: No acute or significant findings. Dictated by Dov Alexander MD @ 08/03/2023 11:14:23 PM (Electronically Signed)
--- NOTE | 2023-08-03 21:51 | ED.GENADULT ---
HPI - General Adult General Date Seen: 08/03/23 Chief complaint: Unspecified Complaint, Adult Stated complaint: not feeling well, dementia Time Seen by Provider: 08/03/23 21:03 History of Present Illness HPI narrative: This is an 88-year-old female with a complex past medical history presenting to the ER marcello with his . Past medical history includes severe aortic stenosis(not treated), previous coronary disease status post bypass, pacemaker, DVT (on Eliquis), type 2 diabetes, GERD, lumbar stenosis, intermittent confusion, dementia/cognitive impairment, history of sacral ulcer (now healed), history of UTIs, BPH, peripheral edema. Patient seems somewhat confused and history is obtained partly from him and probably from his . They report that he has been feeling ?not well? for the past couple of weeks. They are not really able to define what is not well. He just says he has been feeling well. says he has been ?not well? in the past when he has had a UTI. Typically though, when he has UTI he also has urinary frequency and nocturia. He has not had any urinary problems lately. This evening he did have 3 loose bowel movements. During the most recent 1 he did not make it to the bathroom in time so was incontinent of stool. His cleaned him up. He really isn't vomiting. Appetite been normal. is careful to assure us that the patient had a ?good dinner? marcello. Blood sugar was 130 at home and is 122 here. They have noted a couple of tiny skin spots on his left medial thigh that showed up a couple of weeks ago that they thought might be bug bites, but they are not sure how he would been exposed to bugs. They are not getting worse. His previous sacral ulcer has healed. Tonight at home the patient abruptly told his that he thought he was dying. The patient says he is afraid to because he is worried he might go to hell. He also told his nurse multiple times that he is ?ready to . ? His was not sure what was wrong. He might have been short of breath. She notes that today he has some bilateral lower extremity edema which is not usual for him. He does have a history of peripheral edema but she has not really noted any leg swelling for months. His legs are not hurting. For which we try to discuss his goals of care and advanced directives he and his say that they have filled out papers about that. They will not actually tell me what they show but it sounds like that they E is DNR/DNI. They have apparently had a beginning of a workup for his heart valve but decided not to pursue it because it involve needles. It sounds like maybe his cardiologists were recommending a transesophageal echo and a TAVR (?), but they declined that treatment. The patient tells me that he is ready to . We had an extended and honest discussion. At this point it is not clear what condition could have been occurring tonight that made him feel like he was going to . We discussed that further workup would be needed to even begin to rule conditions out such as HI, pneumonia, COVID, UTI, etc.. Patient initially is a reluctant to even except any evaluation or even wear a pulse oximeter. Ultimately though, after discussion between myself, the patient, and his . We decided to do some workup with labs, urine, chest x-ray, EKG. Patient does not want ?a lot of needles? or any procedures. Related Data Home Medications Medication Instructions Recorded Confirmed acetaminophen 500 mg tablet 500 - 1,000 mg PO Q6H PRN 09/13/22 08/03/23 apixaban 2.5 mg tablet (Eliquis) 2.5 mg PO BID 09/13/22 08/03/23 citalopram 10 mg tablet 10 mg PO DAILY 09/13/22 08/03/23 diphenhydramine 25 1 tab PO QHS 09/13/22 08/03/23 mg-acetaminophen 500 mg tablet (Tylenol PM Extra Strength) metformin 850 mg tablet 850 mg PO BIDWM 09/13/22 08/03/23 rosuvastatin 5 mg tablet 5 mg PO HS 09/13/22 08/03/23 nitroglycerin 0.4 mg sublingual 0.4 mg sublingual Q5M PRN 09/14/22 08/03/23 tablet Previous Rx's Medication Instructions Recorded carbidopa 25 mg-levodopa 100 mg 1 tab PO TIDWM #90 tabs 09/18/22 tablet sennosides 8.6 mg-docusate sodium 1 tab PO BID PRN #60 tabs 09/18/22 50 mg tablet (Stool Softener-Laxative) Allergies Allergy/AdvReac Type Severity Reaction Status Date / Time No Known Drug Allergies Allergy Verified 08/03/23 21:18 [facility] Medical History Anticoagulated by anticoagulation treatment ?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 (ICD-10) Weakness ?R53.1 - Weakness (ICD-10) Abnormal echocardiogram ?R93.1 - Abnormal findings on diagnostic imaging of heart and coronary circulation (ICD-10) Severe aortic stenosis ?I35.0 - Nonrheumatic aortic (valve) stenosis (ICD-10) Heart murmur ?R01.1 - Cardiac murmur, unspecified (ICD-10) Parkinsonian features ?R25.9 - Unspecified abnormal involuntary movements (ICD-10) Health care directive on file ?Z78.9 - Other specified health status (ICD-10) Cognitive impairment ?R41.89 - Other symptoms and signs involving cognitive functions and awareness (ICD-10) DVT of upper extremity (deep vein thrombosis) ?I82.629 - Acute embolism and thrombosis of deep veins of unspecified upper extremity (ICD-10) Spinal stenosis ?M48.00 - Spinal stenosis, site unspecified (ICD-10) Osteoarthritis ?M19.90 - Unspecified osteoarthritis, unspecified site (ICD-10) Diabetes ?E11.9 - Type 2 diabetes mellitus without complications (ICD-10) Hyperlipidemia ?E78.5 - Hyperlipidemia, unspecified (ICD-10) Hypertension ?I10 - Essential (primary) hypertension (ICD-10) OSWALDO (obstructive sleep apnea) ?G47.33 - Obstructive sleep apnea (adult) (pediatric) (ICD-10) Pacemaker ?Z95.0 - Presence of cardiac pacemaker (ICD-10) Colitis ?K52.9 - Noninfective gastroenteritis and colitis, unspecified (ICD-10) NSTEMI (non-ST elevated myocardial infarction) ?I21.4 - Non-ST elevation (NSTEMI) myocardial infarction (ICD-10) Diverticulitis ?K57.92 - Diverticulitis of intestine, part unspecified, without perforation or abscess without bleeding (ICD-10) Surgical History S/P small bowel resection ?Z90.49 - Acquired absence of other specified parts of digestive tract (ICD-10) H/O hernia repair ?Z98.890 - Other specified postprocedural states (ICD-10) ?Z87.19 - Personal history of other diseases of the digestive system (ICD-10) S/P cholecystectomy ?Z90.49 - Acquired absence of other specified parts of digestive tract (ICD-10) S/P CABG x 3 ?Z95.1 - Presence of aortocoronary bypass graft (ICD-10) Social History Narrative: Lives with at [address]. 3 grown children. No ETOH, no tobacco use. 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 DNR/DNI Highest level of school completed/degree received: high school graduate Smoking Status: Former smoker What tobacco products do you use: cigarettes Years smoked: 20 Smoking quit date/years: >15 years ago, cigars and pipe Do you use any of these nicotine containing products: None Second hand tobacco smoke exposure: No How often do you have a drink containing alcohol: never How often do you have six or more drinks on one occasion: Never AUDIT-C Alcohol total score: 0 Non-prescribed substance use: denies use Caffeine: Yes (Coffee) service: Yes Exam Narrative: Exam Narrative: Constitutional: Appears well-developed and well-nourished. Alert. Conversant but is a very poor historian. says he has known dementia. The times he seems very lucid. He is elderly and frail appearing but overall Non toxic. He has a resting, pill rolling, tremor in particular with his right hand. HENT: Head: Atraumatic. Nose: Nose normal. Mouth/Throat: Oral mucosa is clear and moist. no trismus. Pharynx normal. Tonsils symmetric. No tonsillar enlargement, erythema, or exudate. Eyes: Conjunctivae normal. EOM normal. Pupils equal, round, and reactive to light. No scleral icterus. Neck: Normal range of motion. Neck supple. No tracheal deviation present. Cardiovascular: Normal rate, regular rhythm. No gallop. No friction rub. Loud crescendo/decrescendo systolic murmur heard. Symmetric radial and PT artery pulses Pulmonary/Chest: Effort normal. No stridor. No respiratory distress. No wheezes. No rales. No rhonchi . No tenderness. Abdominal: Soft. Bowel sounds normal. No distension. No mass. No tenderness. No rebound. No guarding. Musculoskeletal: RUE: Normal range of motion. No tenderness. No deformity LUE: Normal range of motion. No tenderness. No deformity RLE: Normal range of motion. No edema. 1+ tenderness. No deformity LLE: Normal range of motion. No edema. 1+ tenderness. No deformity Neurological: Alert and oriented to person, place, but not date. Normal strength. CN II-VII intact. No sensory deficit. GCS eye subscore is 4. GCS verbal subscore is 5. GCS motor subscore is 6. Normal coordination strength 5/5 bilaterally in the deltoids, biceps, triceps, corporate coordinator. Upper extremity coordination normal. Resting tremor especially with the right hand. 5/5 bilateral strength in his legs. No focal deficits. No facial droop. Skin: Skin is warm and dry. He has to 1-2 mm macules on his left medial thigh that are approximately 1 cm apart that are covered by a Band-Aid. No surrounding erythema. No vesicles or pustules. No nodules. No pallor. Normal capillary refill. Psychiatric: Somewhat limited buttock confusion or dementia. Endorses multiple times that he is ready to . Seems a bit depressed and flat. It sounds like this is his baseline. Const: Vital Signs, click to edit/add: Vital Signs - 24 hr 08/03/23 21:18 Temperature 98.3 F Respiratory Rate 12 Blood Pressure [Ri ght Upper Arm] 131/106 H Pulse Oximetry 95 Oxygen Delivery Me thod Room Air Course Vital Signs Vital signs: Initial Vital Signs Temperature 98.3 F 08/03/23 21:18 Temperature Source Temporal Artery Scan 08/03/23 21:18 Respiratory Rate 12 08/03/23 21:18 Blood Pressure 131/106 H 08/03/23 21:18 Blood Pressure Mean 114 H 08/03/23 21:18 Blood Pressure Position Supine 08/03/23 21:18 Pulse Oximetry 95 08/03/23 21:18 Oxygen Delivery Method Room Air 08/03/23 21:18 Vital Signs Temperature 98.3 F 08/03/23 21:18 Respiratory Rate 12 08/03/23 21:18 Blood Pressure 131/106 H 08/03/23 21:18 Pulse Oximetry 95 08/03/23 21:18 Oxygen Delivery Method Room Air 08/03/23 21:18 Temperature 98.3 F 08/03/23 21:18 Respiratory Rate 12 08/03/23 21:18 Blood Pressure 131/106 H 08/03/23 21:18 Pulse Oximetry 95 08/03/23 21:18 Oxygen Delivery Method Room Air 08/03/23 21:18 Medications Administered Medications: Generic Name Dose Route Start Last Admin Trade Name Sebastián PRN Reason Stop Dose Admin Aspirin 162 mg 08/04/23 00:10 08/04/23 00:17 Aspirin 81 Mg Tab.Chew PO 08/04/23 00:11 162 mg ONCE ONE Administration Medical Decision Making MDM Narrative Medical decision making narrative: 88-year-old [facility] his after he had a sense that he might and a feeling of dread this evening. No other definite symptoms correlates with this. 1. Goals of care/end of life. The patient was initially undecided about whether he would want any workup at all here at the hospital. He says multiple times that he is ready to . His is worried about him, however. Ultimately he did agree to at least have screening labs, urinalysis, COVID swab, EKG, chest x-ray. I had a meeting with the patient, his , and his daughter. They were very clear that his goals of care would include absolutely no surgeries, no interventions, no cardiac catheterization. They have already declined to have any further workup for repair for his aortic valve. He is DNR/DNI. However he would want to be comfortable and treated with medicines for conditions such as urinary tract infection. He does have an abnormal troponin tonight, higher than his previous baseline. Discussed with he and his family. the etiology is uncertain. Could be cardiac strain from aortic stenosis, could be heart attack, could be strain from PE, could be other. They are clear that they would like some clarity about the cause for the troponin which probably correlates with the sensation of dread but they would not want any aggressive treatments or surgeries, even if life-threatening conditions were identified. 2. Cardiac. He does have abnormal troponin. Could be related to previously known severe aortic stenosis. Has already declined treatment for that. Differential here tonight includes ACS. EKG shows paced QRS. No definitive ischemia on EKG. Troponin is abnormal at 0.18. This is higher than his previous troponin levels. He is not actually having any chest pain stay here or at home. He may have been briefly short of breath but is no longer feeling that way. No definite anginal symptoms other than his feeling of dread which may be an anginal equivalent. He is already on Eliquis. Aspirin administered here. He is not currently on aspirin at home (just Eliquis). Will hold off on heparin for now because he is already on Eliquis and ACS is not definitive. Troponin could reflect cardiac strain from CHF. BNP is also elevated. However chest x-ray shows no pulmonary edema. He is not hypoxic. He does have a trace amount of bilateral lower extremity edema. Troponin could reflect cardiac strain from PE. 3. Pulmonary. Chest x-ray clear. No pneumonia. No CHF. No wheezing or bronchospasm. COVID pending at the time of this dictation. He is not really coughing. No fever. reported that he seemed to have swelling in his left calf at home tonight but that calf is no longer swollen. It is possible that he may have had at left lower extremity DVT that embolized to his lungs. For abnormal D-dimer I have ordered CT PA. pending. He is chronically on Eliquis for DVT prophylaxis. He and his report that he has been consistent in taking it lately. He is already on Eliquis. Unclear what treatment would be if he was confirmed to have a PE that breakthrough on the Eliquis. Potentially, change to warfarin. 4. Renal/electrolytes: Sodium normal. BUN slightly elevated at 37. Creatinine 1.4. 5. Endocrine. Has type 2 diabetes. Blood sugar normal. No evidence for DKA or nonketotic hyperosmolar syndrome. 6. Id. Consider possible UTI as a cause for him feeling unwell for the past few weeks. Urinalysis ordered but not yet obtained at time of this dictation. No fever. 7. Neuro. For the most part patient seems fairly cognitively intact but does have periods when he seems a little bit confused. I do think he does have capacity to understand his lab findings. His and daughter support his desire to avoid any aggressive procedures. He does have a pill rolling tremor with his right hand. He is on carbidopa/levodopa. Discussed with the telehospitalist, Dr. Glover, at 12:15 a.m. he will accept this patient for admission, troponin trending, and further workup. Dr. Glover understands that the patient is being admitted for further workup and clarification and monitoring. The patient's goals of care are to avoid any aggressive procedures. No CPR, no intubation. Comfort care if his condition should deteriorate.. Lab Data Labs: Lab Results 08/03/23 08/04/23 Range/Units 22:50 00:03 WBC 8.28 (4.50-11.00) K/uL RBC 4.40 (4.30-5.90) m/uL Hgb 13.8 (13.5-17.5) gm/dL Hct 41.5 (37.0-53.0) % MCV 94 (80-100) fL MCH 31 (26-34) pg MCHC 33 (32-36) gm/dL RDW Coeff of Brian 12.8 (11.5-15.5) % Plt Count 176 (140-440) K/uL Neut % (Auto) 73.7 H (42.0-72.0) % Lymph % (Auto) 12.8 L (20-44) % [place] % (Auto) 8.6 (0.0-11.0) % Eos % (Auto) 3.6 (0.0-7.0) % Baso % (Auto) 0.2 (0.0-3.0) % Neut # (Auto) 6.10 (1.7-7.0) K/uL Lymph # (Auto) 1.10 (0.90-2.90) K/uL [place] # (Auto) 0.70 (0.00-0.90) K/UL Eos # (Auto) 0.30 (0.00-0.50) K/uL Baso # (Auto) 0.02 (0.00-0.30) K/uL Abs Immat Gran (auto) 0.09 (0.00-0.30) K/uL Imm/Tot Granulo (auto) 1.1 % D-Dimer Quant (PE/DVT) 1.21 H (0.00-0.50) ug/ml Sodium 138 (135-149) mmol/L Potassium 4.5 (3.6-5.1) mmol/L Chloride 106 (96-114) mmol/L Carbon Dioxide 23 (20-32) mmol/L Anion Gap 9 (7-15) mEq/L BUN 37 H (7-30) mg/dL Creatinine 1.4 (0.5-1.5) mg/dL Estimated Creat Clear 38.38 Estimated GFR 49 ml/min Glucose 115 (60-115) mg/dL Lactate 1.0 (0.5-1.9) mmol/L Calcium 9.1 (8.4-10.6) mg/dL Total Bilirubin 0.5 (0.1-1.5) mg/dL AST 37 H (12-35) U/L ALT 28 (4-50) U/L Alkaline Phosphatase 116 (40-150) U/L Troponin I 0.18 H* (0.01-0.04) ng/mL NT-Pro-B Natriuret Pep 1820 pg/mL Total Protein 7.2 (6.0-8.3) g/dL Albumin 4.1 (3.3-5.0) g/dL Lab Acknowledgement Test Added Imaging Data Chest x-ray: Attestation: I have reviewed the pertinent imaging results. Radiologist's impression: IMPRESSION: No acute or significant findings. ECG Data Attestation: I personally reviewed and interpreted this ECG as follows: Interpretation: Paste rhythm. Atrial and ventricular pacemaker. Rate 55 [place] na QRS axis left axis deviation. Paced QRS. QRS is or why because a pacer. QRS duration 186 ST segment/T wave: No ST segment elevation or depression. QTc: 487 Discharge Plan Discharge Clinical Impression: Elevated troponin Patient Disposition: Admitted As Observation
--- OUTSIDE RECORDS SUMMARY | 2023-08-03 22:42 | XMS_ITS | Continuity of Care Document ---
Author Name Unknown Organization [facility] Address [address] [place] [id number] Phone Care Team Providers Care Haz Tech Name Role Phone Karl Warren MD Unavailable [...] Copied on Encounter [facility], [address], [place], [place], [id number], [place] tel:[phone] [facility] No Information Briana Barajas. [facility], [address] [place] [address], [address], [place], [id number] , [place]. tel:[phone] Office/Outpat ient Visit,[facility], [address], [place], [place], [id number], tel:[phone] [facility] Spinal stenosis, lumbar regionLow back painSpondylol isthesis, lumbar region Briana Barajas. [facility], [address], [address], [place], [place], [id number] , [place]. tel:[phone] Referring Provider: Karl Yoon, [facility] [address], [address], [place], [address] . tel:[phone] Office consultation, low Z [facility], [address], [place], [address], [place] tel:[phone] [facility] No Information David Vidal. [facility], [address], [address], [place], [place], [id number] , [place]. tel:[phone] Referring Provider: Derek Lindsay, [address], [place], [address]. tel:[phone] Family History Family Member Type Diagnosis Age At Onset No Information Payers Payer name Insurance type Covered constitution party ID Authoriza ticoleen(s) [employer] [facility] [place] [id number] Social History Type Description Quantity Date Captured [...]
[2023-08-03 23:02] LABS: Basophils Absolute Auto 0.02 K/uL (0.00-0.30); Basophils Percent Auto 0.2 % (0.0-3.0); Eosinophils Percent Auto 3.6 % (0.0-7.0); Hematocrit 41.5 % (37.0-53.0); Hemoglobin* 13.8 gm/dL (13.5-17.5); Immature Granulocytes Abs Auto 0.09 K/uL (0.00-0.30); Immature Granulocytes Pct Auto 1.1 %; Lymphocytes Percent Auto 12.8 % (20-44); Mean Corpuscular HGB Conc 33 gm/dL (32-36); Mean Corpuscular Hemoglobin 31 pg (26-34); Mean Corpuscular Volume 94 fL (80-100); Monocytes Percent Auto 8.6 % (0.0-11.0); Neutrophils Percent Auto 73.7 % (42.0-72.0); Platelet Count* 176 K/uL (140-440); RDW Coefficient of Variation % 12.8 % (11.5-15.5); White Blood Count* 8.28 K/uL (4.50-11.00)
[2023-08-03 23:03] LABS: Slide Review Reflex No
[2023-08-03 23:18] LABS: Albumin* 4.1 g/dL (3.3-5.0); Chloride* 106 mmol/L (96-114); Potassium* 4.5 mmol/L (3.6-5.1); Sodium* 138 mmol/L (135-149)
[2023-08-03 23:20] LABS: Bilirubin Total* 0.5 mg/dL (0.1-1.5); Creatinine* 1.4 mg/dL (0.5-1.5); Est. Creatinine Clearance* 38.38; Estimated Glomerular Filt Rate 49 ml/min
[2023-08-03 23:21] LABS: Alanine Aminotransferase* 28 U/L (4-50); Alkaline Phosphatase* 116 U/L (40-150); Anion Gap 9 mEq/L (7-15); Aspartate Amino Transferase* 37 U/L (12-35); Blood Urea Nitrogen* 37 mg/dL (7-30); Calcium* 9.1 mg/dL (8.4-10.6); Carbon Dioxide* 23 mmol/L (20-32); Glucose* 115 mg/dL (60-115); Total Protein* 7.2 g/dL (6.0-8.3)
[2023-08-03 23:34] LABS: NT Pro B Type NatriureticPept* 1820 pg/mL; Troponin I* 0.18 ng/mL (0.01-0.04)
[2023-08-03 23:38] LABS: PCR FLU A Negative PCR FLU A (Negative); PCR FLU B Negative PCR FLU B (Negative); PCR RSV Negative PCR RSV (Negative)
[2023-08-04 00:14] LABS: D Dimer Quantitative* 1.21 ug/ml (0.00-0.50)
[2023-08-04] MEDS: ASPIRIN 81 MG TAB.CHEW 162 MG PO (00:17)
--- NOTE | 2023-08-04 00:37 | CRLHL7_ITS ---
For Patients: As a result of the Century Cures Act, medical imaging exams and procedure reports are released immediately into your electronic medical record. You may view this report before your referring provider. If you have questions, please contact your health care provider. INDICATION: Dyspnea. TECHNIQUE: CT chest PE was acquired with 95 cc Isovue 370 IV contrast. COMPARISON: Same day chest radiographs. CT PE chest 09/13/2022. FINDINGS: Heart and vasculature: Contrast opacification of the pulmonary arterial tree is adequate. No sign of pulmonary embolism. Heart size is normal. Thoracic aorta and pulmonary artery are normal in caliber. Postsurgical changes of CABG. Aortic and aortic valve calcifications. Left-sided dual chamber cardiac pacer, unchanged. Lungs and pleura: Mild bronchial wall thickening. Bibasilar atelectasis. No suspicious nodules or infiltrates. No pleural effusions, pleural thickening, or pneumothorax. Lymph nodes/mediastinum: No mediastinal, hilar, or axillary adenopathy. Thyroid gland is unremarkable. Chest wall: No masses. Upper abdomen: Nodular contour of the liver, likely reflecting cirrhotic morphology. Status post cholecystectomy. Mild pneumobilia. Bones: Discharge changes. IMPRESSION: No evidence of pulmonary embolism or acute pulmonary process. Please note that all CT scans at this facility use dose modulation, iterative reconstruction, and/or weight-based dosing when appropriate to reduce radiation dose to as low as reasonably achievable. Dictated by Anmol Salmon MD @ 08/04/2023 2:04:22 AM (Electronically Signed)
[2023-08-04 00:42] LABS: Appearance Urine Clear (Clear); Bilirubin Urine Negative (Negative); Blood Urine Trace-intact (Negative); Color Urine Yellow (Yellow); Glucose Urine Negative (Negative); Ketones Urine Negative (Negative); Leukocyte Esterase Urine Negative (Negative); Nitrite Urine Negative (Negative); Protein Urine Negative (Negative); Specific Gravity Urine 1.015 (1.000-1.030); Urobilinogen Urine 0.2 (0.2-1.0); pH Urine 5.5 (5.0-8.5)
[2023-08-04 00:50] LABS: RBC Urine 0-2 (0-2); Squamous Epithelial Cell Urine Few (None-Few); WBC Urine 0-2 (0-5)
--- NOTE | 2023-08-04 00:50 | ED.NURSE ---
report given to ry CONNORS, patient going to room 247
[2023-08-04 01:16] LABS: Troponin I* 0.19 ng/mL (0.01-0.04)
[2023-08-04 01:20] LABS: SARS PCR* Negative SARS-CoV-2 (Negative)
[2023-08-04 02:03] VITALS: BP 148/111; PULSE 83; RESP 18; TEMP 36.3; O2SAT 96; BMI 31.1
--- NOTE | 2023-08-04 02:41 | PM.IMHP1 ---
Hospitalist- H&P: HPI History of Present Illness Time Seen by Provider: 02:00 Date Seen: 08/04/23 Chief complaint: not feeling well, dementia Narrative: Mr. 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 He told his that he thought he was going to . He had no specific complaints. No chest pain or shortness of breath or fevers or chills or urinary symptoms. No abdominal pain just and over sense of dread. He has had known calcific aortic stenosis severe for several years. His last echo last year showed an EF of 45 to 50% with a peak jetstream of 3.4 m/s. He was evaluated by cardiology and after discussion the family decided that they did not want any intervention. Apparently both open and TAVR options were discussed. The family agreed at this point that it would be largely comfort care he be DNR/DNI with no intervention for surgery. Apparently at the same time discussion was had if he ever had a acute coronary syndrome they would not want any interventional procedures done either. [place] in the ER he was extensively evaluated with EKG, chest x-ray CTA and blood work. Troponins were mildly elevated without any change attendant 2 hours. Decision to admit observation status was made. Review of Systems Status of ROS: Reports: 10 or more systems reviewed and unremarkable except as noted in History and below [facility] Medical History (Updated 08/04/23 @ 03:03 by Hussein Plasencia MD) Anticoagulated by anticoagulation treatment ?Z79.01 - custodial (current) use of anticoagulants (ICD-10) Severe aortic stenosis ?I35.0 - Nonrheumatic aortic (valve) stenosis (ICD-10) Cognitive impairment ?R41.89 - Other symptoms and signs involving cognitive functions and awareness (ICD-10) Weakness ?R53.1 - Weakness (ICD-10) Abnormal echocardiogram ?R93.1 - Abnormal findings on diagnostic imaging of heart and coronary circulation (ICD-10) Heart murmur ?R01.1 - Cardiac murmur, unspecified (ICD-10) Parkinsonian features ?R25.9 - Unspecified abnormal involuntary movements (ICD-10) Health care directive on file ?Z78.9 - Other specified health status (ICD-10) DVT of upper extremity (deep vein thrombosis) ?I82.629 - Acute embolism and thrombosis of deep veins of unspecified upper extremity (ICD-10) Spinal stenosis ?M48.00 - Spinal stenosis, site unspecified (ICD-10) Osteoarthritis ?M19.90 - Unspecified osteoarthritis, unspecified site (ICD-10) Diabetes ?E11.9 - Type 2 diabetes mellitus without complications (ICD-10) Hyperlipidemia ?E78.5 - Hyperlipidemia, unspecified (ICD-10) Hypertension ?I10 - Essential (primary) hypertension (ICD-10) OSWALDO (obstructive sleep apnea) ?G47.33 - Obstructive sleep apnea (adult) (pediatric) (ICD-10) Pacemaker ?Z95.0 - Presence of cardiac pacemaker (ICD-10) Colitis ?K52.9 - Noninfective gastroenteritis and colitis, unspecified (ICD-10) NSTEMI (non-ST elevated myocardial infarction) ?I21.4 - Non-ST elevation (NSTEMI) myocardial infarction (ICD-10) Diverticulitis ?K57.92 - Diverticulitis of intestine, part unspecified, without perforation or abscess without bleeding (ICD-10) Surgical History S/P small bowel resection ?Z90.49 - Acquired absence of other specified parts of digestive tract (ICD-10) H/O hernia repair ?Z98.890 - Other specified postprocedural states (ICD-10) ?Z87.19 - Personal history of other diseases of the digestive system (ICD-10) S/P cholecystectomy ?Z90.49 - Acquired absence of other specified parts of digestive tract (ICD-10) S/P CABG x 3 ?Z95.1 - Presence of aortocoronary bypass graft (ICD-10) Social History Narrative: Lives with [facility]. 3 grown children. No ETOH, no tobacco use. 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 DNR/DNI Highest level of school completed/degree received: high school graduate Smoking Status: Former smoker What tobacco products do you use: cigarettes Years smoked: 20 Smoking quit date/years: >15 years ago, cigars and pipe Do you use any of these nicotine containing products: None Second hand tobacco smoke exposure: No How often do you have a drink containing alcohol: never How often do you have six or more drinks on one occasion: Never AUDIT-C Alcohol total score: 0 Non-prescribed substance use: denies use Caffeine: Yes (Coffee) service: Yes Meds Home Medications and Allergies Home Medications Medication Instructions Recorded Confirmed Type acetaminophen 500 mg tablet 500 - 1,000 mg PO Q6H PRN 09/13/22 08/03/23 History apixaban 2.5 mg tablet (Eliquis) 2.5 mg PO BID 09/13/22 08/03/23 History citalopram 10 mg tablet 10 mg PO DAILY 09/13/22 08/03/23 History diphenhydramine 25 1 tab PO QHS 09/13/22 08/03/23 History mg-acetaminophen 500 mg tablet (Tylenol PM Extra Strength) metformin 850 mg tablet 850 mg PO BIDWM 09/13/22 08/03/23 History rosuvastatin 5 mg tablet 5 mg PO HS 09/13/22 08/03/23 History nitroglycerin 0.4 mg sublingual 0.4 mg sublingual Q5M PRN 09/14/22 08/03/23 History tablet Allergies Allergy/AdvReac Type Severity Reaction Status Date / Time No Known Drug Allergies Allergy Verified 08/03/23 21:18 Exam Narrative: Exam Narrative: General-awake alert pleasant cooperative oriented to place not to age no acute distress color good HEENT-atraumatic sclera nonicteric extraocular muscles intact mucous membranes moist Neck supple no adenopathy per nurse exam, no JVD Chest-clear to auscultation without rales rhonchi's or wheezes Cor-regular rhythm, coarse systolic murmur heard along the left precordium Abdomen soft corpulent nontender Extremities 2+ edema mid lower leg good sensation Neurologic mild memory issues otherwise pleasant cooperative moves all extremities well nonfocal exam Const: Vital Signs, click to edit/add: Vital Signs - 24 hr 08/03/23 21:18 08/04/23 02:03 Temperature 98.3 F 97.4 F L Pulse Rate [Pulse Oximeter] 83 Respiratory Rate 12 18 Blood Pressure [Le ft Arm] 148/111 H Blood Pressure [Ri ght Upper Arm] 131/106 H Pulse Oximetry 95 96 Oxygen Delivery Me thod Room Air Room Air Hospitalist - H&P: Result Labs Labs: Short CBC 08/03/23 Range/Units 22:50 WBC 8.28 (4.50-11.00) K/uL Hgb 13.8 (13.5-17.5) gm/dL Hct 41.5 (37.0-53.0) % Plt Count 176 (140-440) K/uL BMP 08/03/23 22:50 Sodium 138 Potassium 4.5 Chloride 106 Carbon Dioxide 23 BUN 37 H Creatinine 1.4 Glucose 115 Calcium 9.1 Cardiac Enzymes 08/03/23 08/04/23 Range/Units 22:50 00:41 Troponin I 0.18 H* 0.19 H* (0.01-0.04) ng/mL Liver Function 08/03/23 Range/Units 22:50 Total Bilirubin 0.5 (0.1-1.5) mg/dL AST 37 H (12-35) U/L ALT 28 (4-50) U/L Alkaline Phosphatase 116 (40-150) U/L Albumin 4.1 (3.3-5.0) g/dL Urine 08/04/23 Range/Units 00:40 Urine Color Yellow (Yellow) Urine Appearance Clear (Clear) Urine pH 5.5 (5.0-8.5) Ur Specific [place] 1.015 (1.000-1.030) Urine Protein Negative (Negative) Urine Glucose (UA) Negative (Negative) ECG Interpretation: EKG not available for interpretation on the computer tonight did have the ER physician review and we discussed. Shows 100% paced ventricular, rate [address] scan - chest: Attestation: I have reviewed the pertinent imaging results. Radiologist's impression: No pulmonary emboli no acute pulmonary disease Chest x-ray: Radiologist's impression: No evidence of failure or infection Assessment and Plan Assessment and plan (1) Severe aortic stenosis: Problem comment: - recommend outpatient Cardiology follow-up for consideration of TAVR (scheduled for October) Status: Acute (2) Elevated troponin: Status: Acute (3) Anticoagulated by anticoagulation treatment: Problem comment: - apixaban 2.5 mg orally twice daily Status: Acute (4) Cognitive impairment: Problem comment: - chronic, family aware Status: Acute Plan Mr. Miranda is a very pleasant 88-year-old gentleman with history of known calcific aortic stenosis, mild dementia, well-controlled type 2 diabetes chronic anticoagulation who presented tonight with several weeks of just generalized fatigue and acute sense of dread. Work-up in the emergency room has been unrevealing. He has a mild stable elevation of troponin most likely due to his chronic aortic stenosis. He is anticoagulated and his chest CTA was negative. Given his chronic kidney disease stage III and the contrast load his metformin should be held the next 2 days. Patient and family have had in-depth conversation in the past that they would want no aggressive interventions with regard to his aortic stenosis or if he ever had a acute coronary artery syndrome. He is DNR/DNI. I suspect his generalized weakness is just progression of his aortic stenosis. At this point no intervention would be indicated. I believe there is a compot of fear and anxiety exacerbated by his mild cognitive impairment that could be attributed to his sense of dread tonight. At this point I do not plan on making any major intervention changes other than reassurance. Patient will be DNR/DNI. We will hold his metformin. Continue his apixaban. Baby aspirin 81 mg.
[2023-08-04 03:00] VITALS: BP 117/53; PULSE 63; RESP 18; O2SAT 94
--- NOTE | 2023-08-04 06:48 | PC.NURSE ---
End of shift: Arrived to floor at 0130 w/ . A&O, pleasant and cooperative. History of dementia and has some forgetfulness. VSS. Denies chest pain. A1 w/ walker and gait belt. ?
[2023-08-04 08:19] VITALS: BP 132/79; PULSE 57; RESP 20; TEMP 37.4; O2SAT 97
[2023-08-04] MEDS: APIXABAN 5 MG TABLET 2.5 MG PO (08:22)
[2023-08-04] MEDS: CITALOPRAM HYDROBROMIDE 20 MG TABLET 10 MG PO (08:22)
[2023-08-04] MEDS: METFORMIN 850 MG TABLET PO (08:23)
[2023-08-04] MEDS: SODIUM CHLORIDE 0.9 % (FLUSH) 10 ML SYRINGE 5 ML IVF (08:25)
[2023-08-04 08:38] VITALS: PULSE 57
[2023-08-04 08:53] LABS: HCO3 VBG 25 mmol/L (21-28); Ionized Calcium* 1.18 mmol/L (1.11-1.30); Lactate* 1.3 mmol/L (0.5-1.9); PCO2 VBG 45 mmHG (40-50); PO2 VBG 27.9 mmHG (25-47); pH VBG 7.356 (7.32-7.43)
[2023-08-04 08:58] LABS: Basophils Absolute Auto 0.03 K/uL (0.00-0.30); Basophils Percent Auto 0.4 % (0.0-3.0); Eosinophils Absolute Auto 0.31 K/uL (0.00-0.50); Eosinophils Percent Auto 4.5 % (0.0-7.0); Hematocrit 41.5 % (37.0-53.0); Hemoglobin* 13.7 gm/dL (13.5-17.5); Immature Granulocytes Abs Auto 0.01 K/uL (0.00-0.30); Immature Granulocytes Pct Auto 0.1 %; Lymphocytes Percent Auto 13.5 % (20-44); Mean Corpuscular HGB Conc 33 gm/dL (32-36); Mean Corpuscular Hemoglobin 31 pg (26-34); Mean Corpuscular Volume 94 fL (80-100); Monocytes Percent Auto 9.2 % (0.0-11.0); Neutrophils Percent Auto 72.3 % (42.0-72.0); Platelet Count* 168 K/uL (140-440); RDW Coefficient of Variation % 12.8 % (11.5-15.5); Red Blood Count 4.41 m/uL (4.30-5.90); White Blood Count* 6.96 K/uL (4.50-11.00)
[2023-08-04 09:00] LABS: Slide Review Reflex No
[2023-08-04 09:08] LABS: Chloride* 106 mmol/L (96-114)
[2023-08-04 09:09] LABS: Sodium* 139 mmol/L (135-149)
[2023-08-04 09:10] LABS: Potassium* 4.1 mmol/L (3.6-5.1)
[2023-08-04 09:11] LABS: Creatinine* 1.3 mg/dL (0.5-1.5); Est. Creatinine Clearance* 42.64; Estimated Glomerular Filt Rate 53 ml/min
[2023-08-04 09:12] LABS: Alanine Aminotransferase* 27 U/L (4-50); Alkaline Phosphatase* 107 U/L (40-150); Anion Gap 10 mEq/L (7-15); Aspartate Amino Transferase* 41 U/L (12-35); Bilirubin Total* 0.6 mg/dL (0.1-1.5); Blood Urea Nitrogen* 32 mg/dL (7-30); Carbon Dioxide* 23 mmol/L (20-32); Glucose* 145 mg/dL (60-115); INR 1.07 (0.91-1.10); Lipase* 152 U/L (23-300); Prothrombin Time 14.6 Seconds; Total Protein* 7.1 g/dL (6.0-8.3); Uric Acid* 3.9 mg/dL (2.2-8.4)
[2023-08-04 09:13] LABS: Calcium* 9.1 mg/dL (8.4-10.6); Magnesium* 2.3 mg/dL (1.5-2.6); Phosphorus* 4.2 mg/dL (2.5-4.5)
[2023-08-04 09:15] LABS: C Reactive Protein* 0.9 mg/dL (0.5-1.0)
[2023-08-04 09:24] LABS: NT Pro B Type NatriureticPept* 1920 pg/mL
[2023-08-04 09:29] LABS: Procalcitonin* 0.06 ng/mL (<0.50)
[2023-08-04 09:30] LABS: Troponin I* 0.14 ng/mL (0.01-0.04)
[2023-08-04 12:09] VITALS: BP 140/72; PULSE 92; RESP 18; TEMP 36.6; O2SAT 97
--- NOTE | 2023-08-04 13:13 | PC.SOCIAL ---
Discharge planning: At MD request, met with regarding order fro hospice referral. states she is open to a hospice referral and requested social worker psychiatric contact her daughter, Nasrin Mondragon, who will decide which hospice to use. Called pt's dtr, Nasrin, . Dtr states she is pt's POA and requested hospice referral be sent [facility]. [place] [facility] [place] Dariel[place] who confirmed they can accept a referral and will follow up with pt at home. At dtr's request, called [facility] and left message stating pt being discharged home with hospice referral. Pt is currently on supportive services through [facility] Waiver program and family is hoping to maintain these services in addition to the hospice care. interior surface insulation worker to fax discharge packet to [facility] and [facility] when completed.
--- NOTE | 2023-08-04 14:18 | PC.NURSE ---
Patient A&O and VSS throughout the day of discharge. has been present at bedside and attentive to patient throughout the day. Denies having pain. O2 maintained on RA > 90%. Right FA PIV clean,dry, intact & removed without difficulty. Patient Ax1 with gait belt & walker to BR. Had x1 large BM today. Continent of bladder & bowel. Patient independent with meals. Belongings form reviewed and signed by patient. Patient discharged at 1400 to [facility] accompanied by his and son. Patient transported via wheelchair. Discharge education reviewed with all family members who verbalized understanding and questions were answered appropriately.
--- NOTE | 2023-08-04 14:36 | PM.DS1 ---
DS: Providers Provider Date Seen: 08/04/23 Date of admission: 08/04/23 01:04 Primary care physician: Alec Nguyen MD Admitting Clinician: Hussein Plasencia MD Consults: 08/04/23 12:19 Consult to Infusion Therapy Nurse [CONS] Routine Comment: Reason for Consult:: Social Service Consult Attending Physician on discharge: Ladi Clemente MD [facility] Date of Discharge: 08/04/23 DS: Diagnosis Discharge Diagnosis (1) Severe aortic stenosis: Status: Acute Problem details: -progressive since 09/16. -after care conference with patient/ on 08/04/23 - Hospice consult. Hospice criteria: There has been a clear progressive decline in status, weight loss (110 kilos in 09/16, 101 kilos 08/18) weakness and fatigue. Patient declines invasive procedures such as TAVR. 09/16 Final Impressions: 1. Technically limited exam. 2. Echo contrast was administrered to enhance visualization of all left ventricular segments. 3. Normal LV size, moderately increased wall thickness, mildly reduced global systolic function with an estimated EF of 45 - 50%. 4. Right ventricular cavity size is mildly enlarged, global systolic RV function is normal. 5. Mildly enlarged left atrium. 6. The aortic valve is trileaflet and calcified, moderate to severe stenosis and mild regurgitation. The aortic valve peak velocity is 3.4 m/s, the peak gradient is 47 mmHg, and the mean gradient is 29 mmHg. The aortic valve area is 1.02 cm?? with a dimensionless index of 0.19. The stroke volume index is 40.5 ml/m??. 7. The mitral valve is normal, mild mitral regurgitation. 8. The inferior vena cava is normal sized, respiratory size variation less than 50%. Comparison Compared to prior exam report of 08/30/2019: - The left ventricular function has decreased. - Aortic stenosis has increased. (2) Elevated troponin: Status: Acute (3) Anticoagulated by anticoagulation treatment: Status: Acute Problem details: - apixaban 2.5 mg orally twice daily (4) Cognitive impairment: Status: Acute Problem details: - chronic, family aware DS: Summary Hospital Course Hospital Course: FINAL DIAGNOSIS/FOLLOW UP ISSUES: BRIEF HOSPITAL COURSE: Patient was admitted for overnight. Synopsis of acute inpatient issues are outlined above. Chronic medical conditions with notable findings outlined above. DISCHARGE MEDICATIONS: See Reconciled list - SIGNIFICANT CHANGES: No changes Specific instructions to the patient and follow-up are outlined below. REVIEW OF SYSTEMS No new chest pain or dyspnea Pain controlled No voiding difficulties Tolerating diet challenge PHYSICAL EXAM: CONSTITUTIONAL: Alert, conversational. Feeding himself. VITAL SIGNS: see record. HEENT: Normocephalic, atraumatic. PERRL, EOMI, conjunctivae pink, no scleral icterus. Ears and nose externally normal. Pharynx normal. NECK: No JVD. No carotid bruit, no thyromegaly, no adenopathy. CHEST: Clear to auscultation bilaterally. HEART: S1 and S2 normal. Edema ABDOMEN: Soft, nontender. Normal bowel sounds. MUSCULOSKELETAL: No gross joint deformity or swelling. NEURO: Cranial nerves intact. Grossly intact. No asymmetric findings. SKIN: No rashes, petechiae, concerning changes PSYCHIATRIC: Mood euthymic. DISPOSITION: Home with . Consult sent to [facility] at discharge Time spent on discharge 37 minutes. Status at Discharge Functional status at discharge: uses cane/walker Overall status at discharge: patient is progressing back to baseline Time Spent with Patient Time attestation: Total time spent providing and/or coordinating discharge services: Time spent: Greater than 30 minutes Exam Const: Vital Signs, click to edit/add: Vital Signs - 24 hr 08/03/23 21:18 08/04/23 02:03 08/04/23 03:00 Temperature 98.3 F 97.4 F L Pulse Rate [Pulse Oximeter] 83 63 Respiratory Rate 12 18 18 Blood Pressure [Le ft Arm] 148/111 H 117/53 L Blood Pressure [Ri ght Upper Arm] 131/106 H Pulse Oximetry 95 96 94 Oxygen Delivery Me thod Room Air Room Air Room Air 08/04/23 08:19 08/04/23 08:38 08/04/23 12:09 Temperature 99.3 F 98 F Pulse Rate [Pulse Oximeter] 57 L 57 L 92 Respiratory Rate 20 18 Blood Pressure [Le ft Arm] 132/79 140/72 H Blood Pressure [Ri ght Upper Arm] Pulse Oximetry 97 97 Oxygen Delivery Me thod Room Air Room Air DS: Data Data Completed and Pending Labs on day of discharge: Labs from last 24 hours 08/04/23 08/04/23 08/04/23 08:45 00:41 00:40 WBC 6.96 RBC 4.41 Hgb 13.7 Hct 41.5 MCV 94 MCH 31 MCHC 33 RDW Coeff of Brian 12.8 Plt Count 168 Neut % (Auto) 72.3 H Lymph % (Auto) 13.5 L [place] % (Auto) 9.2 Eos % (Auto) 4.5 Baso % (Auto) 0.4 Neut # (Auto) 5.00 Lymph # (Auto) 0.90 [place] # (Auto) 0.60 Eos # (Auto) 0.31 Baso # (Auto) 0.03 Abs Immat Gran (auto) 0.01 Imm/Tot Granulo (auto) 0.1 INR 1.07 D-Dimer Quant (PE/DVT) VBG pH 7.356 VBG pCO2 45 VBG pO2 27.9 VBG HCO3 25 Sodium 139 Potassium 4.1 Chloride 106 Carbon Dioxide 23 Anion Gap 10 BUN 32 H Creatinine 1.3 Estimated Creat Clear 42.64 Estimated GFR 53 Glucose 145 H Lactate 1.3 Uric Acid 3.9 Calcium 9.1 Ionized Calcium Glenn 1.18 Phosphorus 4.2 Magnesium 2.3 Total Bilirubin 0.6 Direct Bilirubin 0.0 AST 41 H ALT 27 Alkaline Phosphatase 107 Troponin I 0.14 H* 0.19 H* C-Reactive Protein 0.9 NT-Pro-B Natriuret Pep 1920 Total Protein 7.1 Albumin 4.0 Lipase 152 Procalcitonin 0.06 TSH 5.360 H Urine Color Yellow Urine Appearance Clear Urine pH 5.5 Ur Specific [place] 1.015 Urine Protein Negative Urine Glucose (UA) Negative Urine Ketones Negative Urine Blood Trace-intact A Urine Nitrite Negative Urine Bilirubin Negative Urine Urobilinogen 0.2 Ur Leukocyte Esterase Negative Urine RBC 0-2 Urine WBC 0-2 Ur Squamous Epith Cells Few Urine Bacteria None SARS-CoV-2 (PCR) Influenza Type A (PCR) Influenza Type B (PCR) RSV (PCR) Lab Acknowledgement 08/04/23 08/03/23 00:03 22:50 WBC 8.28 RBC 4.40 Hgb 13.8 Hct 41.5 MCV 94 MCH 31 MCHC 33 RDW Coeff of Brian 12.8 Plt Count 176 Neut % (Auto) 73.7 H Lymph % (Auto) 12.8 L [place] % (Auto) 8.6 Eos % (Auto) 3.6 Baso % (Auto) 0.2 Neut # (Auto) 6.10 Lymph # (Auto) 1.10 [place] # (Auto) 0.70 Eos # (Auto) 0.30 Baso # (Auto) 0.02 Abs Immat Gran (auto) 0.09 Imm/Tot Granulo (auto) 1.1 INR D-Dimer Quant (PE/DVT) 1.21 H VBG pH VBG pCO2 VBG pO2 VBG HCO3 Sodium 138 Potassium 4.5 Chloride 106 Carbon Dioxide 23 Anion Gap 9 BUN 37 H Creatinine 1.4 Estimated Creat Clear 38.38 Estimated GFR 49 Glucose 115 Lactate 1.0 Uric Acid Calcium 9.1 Ionized Calcium Glenn Phosphorus Magnesium Total Bilirubin 0.5 Direct Bilirubin AST 37 H ALT 28 Alkaline Phosphatase 116 Troponin I 0.18 H* C-Reactive Protein NT-Pro-B Natriuret Pep 1820 Total Protein 7.2 Albumin 4.1 Lipase Procalcitonin TSH Urine Color Urine Appearance Urine pH Ur Specific [place] Urine Protein Urine Glucose (UA) Urine Ketones Urine Blood Urine Nitrite Urine Bilirubin Urine Urobilinogen Ur Leukocyte Esterase Urine RBC Urine WBC Ur Squamous Epith Cells Urine Bacteria SARS-CoV-2 (PCR) Negative SARS-CoV-2 Influenza Type A (PCR) Negative PCR FLU A Influenza Type B (PCR) Negative PCR FLU B RSV (PCR) Negative PCR RSV Lab Acknowledgement Test Added Discharge Plan Discharge Disposition: Home, Self-Care Date of Admission: 08/04/23 01:04 Attending Provider on Discharge: Ladi Clemente Primary Care Provider: Alec Nguyen Condition: Stable Anticipated Discharge Date/Time: 08/04/23 12:14 Discharge Medications: Continued acetaminophen 500 mg tablet 500 - 1,000 mg PO Q6H PRN Eliquis 2.5 mg tablet 2.5 mg PO BID citalopram 10 mg tablet 10 mg PO DAILY metformin 850 mg tablet 850 mg PO DAILY diphenhydramine-acetaminophen [Tylenol PM Extra Strength] 25-500 mg tablet 1 tab PO QHS rosuvastatin 5 mg tablet 5 mg PO HS nitroglycerin 0.4 mg tablet, sublingual 0.4 mg sublingual Q5M PRN Rx Instructions: do not exceed 3 doses per episode carbidopa-levodopa 25-100 mg Tablet 1 tab PO TIDWM Qty: 90 0RF sennosides-docusate sodium [Stool Softener-Laxative] 8.6-50 mg Tablet 1 tab PO BID PRNQty: 60 0RF carvedilol 3.125 mg tablet 3.125 mg PO BID Discharge Orders: Discharge Order (Routine); Ordered 08/04/23 Ordered By: Ladi Clemente Patient Education: Aortic Stenosis (DC) Additional Instructions: Please send consult to Hospice (ask social work) to discuss with family for end stage Aortic Stenosis. This can be done as an outpatient and is not considered emergent. Activity Level: Activity as Tolerated Discharge Diet: Diabetic Follow Up Appointments: Alec Nguyen MD [Primary Care Provider] - 08/19/23 () [place] DO [Referring] - 08/19/23 11:25 am ([facility] for follow-up discussion on Aortic Stenosis) Forms: [id number] Info Instructions
== END 2023-08-04 14:00 | disposition home or self-care (01) ==
LOC: ED 08-04 00:38 → MEDSURG 08-04 01:06
PROVIDERS: Family Medicine; Admitting Provider Internal Medicine; Emergency Provider Emergency Medicine; PCP Surgery; Visit Provider Internal Medicine
DX: R79.89 Other specified abnormal findings of blood chemistry (principal); R41.89 Other symptoms and signs involving cognitive functions and awareness; I35.0 Nonrheumatic aortic (valve) stenosis; R41.0 Disorientation, unspecified; M62.81 Muscle weakness (generalized); R15.9 Full incontinence of feces; R93.1 Abnormal findings on diagnostic imaging of heart and coronary circulation; K21.9 Gastro-esophageal reflux disease without esophagitis; M19.90 Unspecified osteoarthritis, unspecified site; R60.0 Localized edema; E78.5 Hyperlipidemia, unspecified; E11.22 Type 2 diabetes mellitus with diabetic chronic kidney disease; I12.9 Hypertensive chronic kidney disease with stage 1 through stage 4 chronic kidney disease, or unspecified chronic kidney disease; N18.2 Chronic kidney disease, stage 2 (mild); G47.33 Obstructive sleep apnea (adult) (pediatric); R25.1 Tremor, unspecified; R53.81 Other malaise; R53.83 Other fatigue; Z79.01 Long term (current) use of anticoagulants; Z79.84 Long term (current) use of oral hypoglycemic drugs; Z90.49 Acquired absence of other specified parts of digestive tract; Z95.1 Presence of aortocoronary bypass graft; Z87.11 Personal history of peptic ulcer disease; Z87.19 Personal history of other diseases of the digestive system; Z87.891 Personal history of nicotine dependence; Z86.59 Personal history of other mental and behavioral disorders; Z86.718 Personal history of other venous thrombosis and embolism; Z95.0 Presence of cardiac pacemaker; Z98.890 Other specified postprocedural states; Z78.9 Other specified health status; Z66 Do not resuscitate
CPT/HCPCS: 36415; 71046; 71275; 80053; 80069; 80076; 81001; 82330; 82803; 83605; 83690; 83735; 83880; 84145; 84443; 84484; 84550; 85025; 85379; 85610; 86140; 87631; 93005; 99285; A9270; G0378; Q9967

== ENCOUNTER 2023-10-03 19:03 | Outpatient (CLI) | payer BC, SELFPAY ==
--- OUTSIDE RECORDS SUMMARY | 2023-10-07 10:45 | XMS_ITS | Clinical Summary ---
Author Name Unknown Organization [facility] Address [place], [place] [address] Care Team Providers Care Pattern Data Operator Name Role Phone Staff, Other Clinical Unavailable Alec Jurado MD Primary Care Provider [phone] Allergies Active Allergy Reactions Criticality Noted Date Comments Cephalexin Hives 08/28/2021 Latex, Natural Rubber Edema 06/22/2016 Atorvastatin Muscle Weakness Intolerence, caused severe muscle pain and weakness Metoprolol Dyspnea 08/26/2016 08/25/16. Patient report (adamant) Sitagliptin Phos-Metformin Rash 10/06/2010 Janumet Caused stye in eye, and rash on body Medications Medication Sig Dispensed Refills Start Date End Date Status Chair LiftIndications:Sp inal stenosis of lumbar region without neurogenic claudication For home use. 1 Each 0 07/06/2022 Active Senna-S 8.6-50 mg tablet Take 1 Tablet by mouth 2 times daily if needed. 0 09/18/2022 Active metFORMIN (GLUCOPHAGE) 850 mg tabletIndications: Type 2 diabetes mellitus without complication, without long-term current use of insulin (HC) Take 1 Tablet (850 mg) by mouth once daily with a meal. 180 Tablet 3 10/29/2022 Active durable medical equipment (DME)Indications:U nsteadiness on feet Gait belt for unsteadiness on feet. 1 Each 0 01/05/2023 Active nystatin powder (Nyamyc) powderIndications: Yeast infection of the skin Apply topically to affected area(s) 3 times daily. 60 g 1 01/31/2023 Active carvediloL (COREG) 3.125 mg tablet carvedilol 3.125 mg tablet TAKE ONE TABLET BY MOUTH TWICE A DAY WITH MEALS 0 Active carbidopa-levodopa , 25-100 mg, (SINEMET 25-100) 25-100 mg tablet carbidopa 25 mg-levodopa 100 mg tablet TAKE ONE TABLET BY MOUTH THREE TIMES DAILY WITH MEALS 0 Active diphenhydrAMINE-ac etaminophen 25-500 mg (TYLENOL PM) 25-500 mg tabletIndications: Spinal stenosis of lumbar region without neurogenic claudication Take 1 Tablet by mouth at bedtime. 90 Tablet 3 02/10/2023 Active Graduated Compression StockingsIndicatio ns:Bilateral lower extremity edema For personal use. Length: calf Strength: 16-20 mmHg Circumference in cm: For calf: Ankle 8, Calf 41, Ankle to calf length 39 cm. 1 Packet 0 02/10/2023 Active durable medical equipment (DME)Indications:S donovan stenosis of lumbar region without neurogenic claudication,Bilat eral lower extremity edema Compression stocking Donning device. 1 Each 0 02/10/2023 Active rosuvastatin (CRESTOR) 5 mg tabletIndications: S/P CABG x 3 TAKE ONE TABLET BY MOUTH ONE TIME DAILY AT BEDTIME 90 Tablet 2 03/10/2023 Active FreeStyle Eleonora 14 Day SensorIndications: Type 2 diabetes mellitus without complication, without long-term current use of insulin (HC) USE DIRECTED. WEAR EACH SENSOR FOR 14 DAYS. 6 Each 3 03/10/2023 Active CPAPIndications:OS A (obstructive sleep apnea) CPAP machine for home use at pressure 8 cmw, nasal mask x1/3month with nasal pillows x 2/mo 1 Each 11 04/18/2023 Active acetaminophen (TYLENOL EXTRA STRGTH) 500 mg tabletIndications: Spinal stenosis of lumbar region without neurogenic claudication TAKE ONE OR TWO TABLETS BY MOUTH EVERY SIX HOURS NEEDED. MAX ACETAMINOPHEN DOSE: 3000MG PER 24 HOURS INCLUDING TYLENOL PM. 100 Tablet 0 05/04/2023 Active BenadryL 2 % topical gelIndications:Itc elver Apply to affected area every 6 hours as needed for itching 103 mL 0 05/05/2023 Active apixaban (Eliquis) 2.5 mg tabletIndications: Acute deep vein thrombosis (DVT) of brachial vein of left upper extremity (HC) Take 1 Tablet (2.5 mg) by mouth two times daily. 60 Tablet 11 06/03/2023 Active citalopram (CELEXA) 10 mg tabletIndications: Anxiety TAKE ONE TABLET BY MOUTH EVERY DAY IN THE MORNING 90 Tablet 0 07/12/2023 Active Active Problems Problem Noted Date Diagnosed Date Anticoagulated by anticoagulation treatment 11/2022 Cognitive impairment 10/29/2022 Heart murmur 10/29/2022 Intermittent confusion 10/29/2022 Peripheral edema 10/29/2022 Severe aortic stenosis 10/29/2022 Health care directive on file 10/29/2022 Diverticulosis 10/29/2022 Overview: History of diverticulitis DVT of upper extremity (deep vein thrombosis) Atherosclerosis of [place] co ronary artery of [place] heart with angina pectoris 11/03/2021 Benign prostatic hyperplasia with weak urinary s tream 11/22/2018 GERD (gastroesophageal reflux disease) 8 CKD (chronic kidney disease) stage 3, GFR 30-59 ml/min 06/14/2017 S/P placement of cardiac pacemaker 08/31/2016 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 ?? OSWALDO 06/12/2015 AHI-25 06/23/2015 Lumbar spinal stenosis - worse at L4-5 4 Benign neoplasm of colon 12/25/2008 Overview: Colonoscopy 03/2014 - no further colonoscopy recommended Type 2 diabetes mellitus wit hout complication, without long-term current use of insulin 08/27/2002 Resolved Problems Problem Noted Date Diagnosed Date Resolved Date Inflammatory spondylopathy of lumbar region 04/17/2019 10/24/2019 Generalized edema 09/28/2018 02/23/2022 Anticoagulation monitoring, INR range 2-3 [Z79.01] 08/31/2018 02/23/2022 Acute deep vein thrombosis ( DVT) of brachial vein of left upper extremity 05/30/2018 12/02/2020 Coronary artery disease invo lving [place] coronary artery of [place] heart with angina pectoris 06/16/2016 04/17/2019 Sleep apnea 06/16/2016 08/31/2016 Lumbar facet arthropathy 09/16/201409/2016 Routine general medical exam ination at a health care facility 02/02/2008 08/15/2012 Overview: Lipids - 11/10/06 cholesterol 149, LDL 82 Dexa- none found Colon - 10/17/01 Thyroid- 01/29/08 - 2.36 Hep B-none found Tetanus-1982 ? Diabetic-yes - Last A1C 01/02/08- 6.9 Edema 05/25/2007 08/31/2016 Obesity, unspecified 05/25/2007 016 Encounters Date Type Department Care Team Description 09/09/2023 Telephone [facility] [address] [place] [address] Doug Moralez MD DME Supply (C-PAP) 08/04/2023 Orders Only [facility] Scanner 1 scan: (1-Ord) [facility], CT ANGIO CHEST PE PROTOCOL, 08/04/2023 08/03/2023 Orders Only [facility] Scanner 1 scan: (1-Ord) [facility], XR CHEST 2V, 08/03/2023 07/12/2023 Refill [facility] [address] [place] [address] Alec Nguyen MD Refill Request (Citalopram) from Last 3 Months Immunizations Name Administration Dates Next Due COVID-19 vaccine (Moderna 100mcg/0.5mL) PF, MDV 12/11/2020,11/10/2020 COVID-19 vaccine (Pfizer-Bio NTech 30mcg/0.3mL) PF, MDV 08/10/2021 Influenza A (H1N1), Inactiva meliza (Age >=3 Years) 11/12/2009 Influenza, IIV3 (Age >=3 years) 08/15/20 12,11/12/2009,09/12/2008,08/19 Pneumococcal Poly,23-Valent (Pneumovax) 02/02/2008 Td (Age >=7 Years) 03/12/2009,02/02/2008 018 Tdap 08/15/2012 Family History Medical History Relation Name Comments Cancer-colon Neg. 1 Cancer-prostate Neg. 2 Cancer Sister unknown type of cancer, in 50's Relation Name Status Comments Neg. 1 Neg. 2 Sister Social History Tobacco Use Types Packs/Day Years Used Date Smoking Tobacco: Former Cigarettes 3 20 0 09/26/1944 - 09/26/1964 Smokeless Tobacco: Former Chew Quit: 1964 Tobacco Cessation:Counseling Given: Yes Comments:quit 50 years ago Alcohol Use Standard Drinks/Week Comments No 0 (1 standard drink = 0.6 oz pur e alcohol) PHQ-2 Answer Date Recorded PHQ-2 TOTAL SCORE 0 02/23/2022 Social Connections Answer Date Recorded Frequency of Communication with Friends and Fami ly Not on file 01/13/2023 Financial Resource Strain Answer Date R ecorded Difficulty of Paying Living Expenses 3 01/12/2022 Difficulty of Paying Living Expenses Not on file 01/12/2022 Food Insecurity Answer Date Recorded Worried About Running Out of Food in the Last Ye ar 1 01/12/2022 Transportation Needs Answer Date Record ed Lack of Transportation (Medical) 2 01/12/2022 Housing Stability Answer Date Recorded Unable to Pay for Housing in the Last Year 1 01/12/2022 Sex and Gender Information Value Date Recorded Sex Assigned at Not on file Gender Identity Not on file Sexual Orientation Not on file Obstetrics History Last Filed Vital Signs Vital Sign Reading Time Taken Comments Blood Pressure 124/74 04/19/2023 1:28 PM CDT Pulse 70 04/19/2023 1:28 PM CDT Temperature 36.5 ??C (97.7 ??F) 11/12/2022 1:01 PM CS T Respiratory Rate 20 10/08/2019 1:14 PM NATIONAL SALES TRAINER Oxygen Saturation 98% 04/19/2023 1:28 PM CDT Inhaled Oxygen Concentration - - Weight 100.7 kg (222 lb) 02/10/2023 3:20 PM CDT home weight Height 177.8 cm (5' 10) 10/12/2022 2:14 PM NATIONAL SALES TRAINER Body Mass Index 31.85 10/12/2022 2:14 PM NATIONAL SALES TRAINER Plan of Treatment Upcoming Encounters Date Type Department Care Team (Late st Contact Info) Description 11/08/2023 1:30 PM NATIONAL SALES TRAINER Cardiac Device Check [facility] [address] [place] [address] 01/05/2024 1:30 PM CDT Telemedicine [facility] [address] [place] [address] Doug Moralez MD [address] [place] [address] Health Maintenance Due Date Last Done Comments Zoster (shingles) series for age 50+ (1 of 2) 02/14/1986 Pneumococcal series for age 65+ (2 of 2 - PCV) 02/01/2009 02/02/2008 Tetanus booster 08/15/2022 08/15/2012, 02/24, 02/02/2008 Depression screening for age 12+ 02/23/2023 02/23/2022, 11/23/2021, 11/20/2021, Additional history exists Medicare Wellness for age 65+ 02/23/2023, 12/02/2020, 08/15/2012 COVID-19 vaccine series ( season) 2023 08/10/2021, 12/11/2020, 11/10/2020 Influenza for age 65+ 05/27/2023 08/15/2012 , 11/12/2009, 11/12/2009, Additional history exists BMI (ht and wt on same day) for age 18+ 10/12/2023 10/12/2022, 10/08/2019, 03/08/2019, Additional history exists Tdap Completed 08/15/2012 Procedures Procedure Name Priority Date/Time Associated Diagnosis Comments SCAN-CT INTERPRETATION 12:00 AM NATIONAL SALES TRAINER SCAN-RADIOLOGY REPORT 08/03/2023 12:00 AM NATIONAL SALES TRAINER from Last 3 Months Results * SCAN-CT INTERPRETATION (08/04/2023 12:00 AM NATIONAL SALES TRAINER) Anatomical Region Laterality Modality Other Scanner OTHER * SCAN-RADIOLOGY REPORT (08/03/2023 12:00 AM NATIONAL SALES TRAINER) Anatomical Region Laterality Modality Other Scanner OTHER from Last 3 Months Advance Directives Documents on File Type Date Recorded Patient Foundry Engineer Expl 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 Healthcare Directive 08/23/2016 12:00 AM Latest Code Status on File Code Status Date Activated Date Inactivated Comments Full Code 05/30/2018 3:03 AM 06/01/2018 4:52 PM Code Status History Code Status Date Activated Date Inactivated Comments Full Code 08/25/2016 4:20 PM 08/26/2016 4:49 PM Full Code 08/23/2016 6:29 AM 08/24/2016 2:23 PM Full Code 06/22/2016 4:09 PM 06/28/2016 4:30 PM Full Code 06/16/2016 3:09 PM 06/22/2016 4:09 PM Care Teams Pattern Data Operator Relationship Specialty Start Date End Date Alec Nguyen MD [address] [place] [address] PCP - General Family Practice 07/31/14 Staff, Other Clinical . 08/15/12
--- OUTSIDE RECORDS SUMMARY | 2023-10-07 10:45 | XMS_ITS | Data Portability ---
Author Name Unknown Address [address] [place] [address] Phone [phone] Organization [facility] Address [address] [place] [address] Assessment No assessment recorded. Plan of Treatment Reminders Order Date Submit Date Provider Last Modified By Organization Details Last Modified Time Details Appointments None recorde d. Lab culture , urine 023 02/03/20 23 [email or web address] 0 [facility], [address], [place], [address], 3 09:11:16 Referral None recorde d. Procedures None recorde d. Surgeries None recorde d. Imaging None recorde d. Medication Orders None recorde d. Patient TargetsNo targets recorded. Patient InstructionsNo instructions recorded. Reason for Referral None Reported. Results Created Date Observation Date Name Description Value Unit Range Abnormal Flag LastModifiedBy Organization Detail LastModifiedTime 02/08/20 23 02/02/2023 bladd er scan (PROC ) No observ ation record ed. BARCODE Not Available 02/07/2023 08:53:25 Result Notes None recorded. Procedures Surgical History Date Name Laterality Status Provider Name and Address Organization Details Recorded Time Bladder Scan completed Suraj gaytan [facility] 02/02/2023 12:46:21 Imaging Results Imaging Date Name Status LastModified by Organiz ation Details LastModified Time 02/02/2023 bladder scan (PROC) completed BARCODE Information not available 02/07/2023 08:53:25 Procedure Notes None recorded. Medical Equipment None Reported. Allergies No known drug allergies Medications Name Sig Start Date Stop Date Status Note LastModified by Organization Details LastModified Time pain relief tab 25-500mg active Not Available Not Available Not Available citalopram 10 mg tablet TAKE ONE TABLET BY MOUTH EVERY DAY IN THE MORNING. active Not Available Not Available No t Available metformin 850 mg tablet Take 1 Tablet (850 mg) by mouth once daily with a meal. active Not Available Not Available No t Available ciprofloxac in 250 mg tablet TAKE ONE TABLET BY MOUTH TWICE DAILY FOR 4 DAYS 02/02 completed Not Available Not Available Not Available ciprofloxac in 500 mg tablet Take 1 Tablet (500 mg) by mouth two times daily for 7 days. 02/02 completed Not Available Not Available Not Available sulfamethox azole 800 mg-trimetho prim 160 mg tablet TAKE ONE TABLET BY MOUTH TWICE DAILY FOR 5 DAYS 02/02 completed Not Available Not Available Not Available acetaminoph en 500 mg tablet Take 1-2 Tablets (500-1,00 0 mg) by mouth every 6 hours if needed. Max of 3000 mg of acetamino phen/24 hours including use of tylenol PM active Not Available Not Available No t Available carvedilol 3.125 mg tablet TAKE ONE TABLET BY MOUTH TWICE A DAY WITH MEALS active Not Available Not Available No t Available cephalexin 500 mg capsule Take 1 capsule (500mg) by mouth three times a day. 02/02 completed Not Available Not Available Not Available furosemide 20 mg tablet TAKE ONE TABLET BY MOUTH EVERY DAY IN THE MORNING. 02/02 completed Not Available Not Available Not Available carbidopa 25 mg-levodopa 100 mg tablet TAKE ONE TABLET BY MOUTH THREE TIMES DAILY WITH MEALS active Not Available Not Available No t Available Senna-S 8.6 mg-50 mg tablet TAKE ONE TABLET BY MOUTH TWICE DAILY NEEDED active Not Available Not Available No t Available rosuvastati n 5 mg tablet TAKE ONE TABLET BY MOUTH ONE TIME DAILY AT BEDTIME active Not Available Not Available No t Available Acetaminoph en PM 25 mg-500 mg tablet TAKE ONE TABLET BY MOUTH ONE TIME DAILY AT BEDTIME active Not Available Not Available No t Available Nyamyc 100,000 unit/gram topical powder Apply topically to affected area(s) 3 times daily. active Not Available Not Available No t Available Eliquis 2.5 mg tablet Take 1 Tablet (2.5 mg) by mouth two times daily. active Not Available Not Available No t Available FreeStyle Eleonora 14 Day Sensor kit USE DIRECTED. WEAR EACH SENSOR FOR 14 DAYS. active Not Available Not Available No t Available Vitals Date Recorded Body height Body mass index (BMI) Body weight Provider Name and Address Organization Details Last Updated DateTime 02/02/2023 180.34 cm 29 kg/m2 59944.21 g Suraj Moran [facility] 02/02/2023 12:42:31 Social History Question Answer Notes LastModified by Organizat ion Details LastModified Time Tobacco Smoking Status Never Smoker Suraj Moran [facility] 02/02/2023 12:45:10 What Is Your Level Of Alcohol Consumption? None Information not available 02/02/2023 What Is Your Level Of Caffeine Consumption? Occasional Information not available 02/02/2023 Are You Currently Employed? No Information not available 02/02/2023 Recreational Drug Use No Information not available 02/02/2023 What Was The Date Of Your Most Recent Tobacco Screening? 02/02/2023 Information not available 02/02/2023 What Is Your Relationship Status? Information not available 02/02/2023 Do You Use Any Illicit Or Recreational Drugs? No Information not available 02/02/2023 Has Tobacco Cessation Counseling Been Provided? No Information not available 02/02/2023 Do You Or Have You Ever Used Any Other Forms Of Tobacco Or Nicotine? No Information not available 02/02/2023 Sex: Male Functional Status None recorded. Mental Status None recorded. Family History Nothing Reported. Medical History Condition Response Diabetes Y Other N Bleeding Disorder N High Blood Pressure Y High Cholesterol Y Cancer N Depression N Immunizations Vaccine Type Date Status Provider Name and Address Organization Details Recorded Time COVID-19, mRNA, LNP-S, PF, 100 mcg/0.5mL dose or 50 mcg/0.25mL dose 11/11/2020 completed Cari gaytan [facility] 08/22/2023 08:50:18 COVID-19, mRNA, LNP-S, PF, 100 mcg/0.5mL dose or 50 mcg/0.25mL dose 12/11/2020 completed Cari gaytan [facility] 08/22/2023 08:50:18 COVID-19, mRNA, LNP-S, PF, 30 mcg/0.3 mL dose 08/10/2021 completed Cari Allar null, [facility] 08/22/2023 08:50:18 pneumococcal polysaccharide PPV23 02/02/2008 completed Cari Allar null, [facility] 08/22/2023 08:50:18 Tdap 08/15/2012 completed Cari Allar null, [facility] 08/22/2023 08:50:18 Novel [id number], all formulations 11/12/2009 completed Cari Allar null, [facility] 08/22/2023 08:50:18 Influenza, seasonal, injectable 08/15/2012 completed Cari Allar null, [facility] 08/22/2023 08:50:18 Influenza, seasonal, injectable 08/19/2006 completed Cari Allar null, [facility] 08/22/2023 08:50:18 Influenza, seasonal, injectable 09/12/2008 completed Cari Allar null, [facility] 08/22/2023 08:50:18 Influenza, seasonal, injectable, preservative free 11/12/2009 completed Cari Allar null, [facility] 08/22/2023 08:50:18 Td (adult), 2 Lf tetanus toxoid, preservative free, adsorbed 02/02/2008 [facility]/2023 08:50:18 Td (adult), 2 Lf tetanus toxoid, preservative free, adsorbed 03/12/2009 completed Cari Allar null, [facility] 08/22/2023 08:50:18 Past Encounters Encounter ID Performer Location Encounter Start Date Encounter Closed Date Diagnosis/Indication [id number] Nicolas Reyez MD [facility] [address] [place] [address] 02/02/2023 11:36:54 02/09/2023 15:53:05 Recurrent urinary tract infection Health Concerns Section Related Observation LastModified by Organization Detai ls LastModified Time None Recorded Concern Status LastModified by Organization Details LastModified Time None Recorded Advance Directives Directive None Recorded Payers Encounter Date Sequence Insurance Name Policy Number Policy Adkins Covered Member ID Adkins Member ID Guarantor Name 02/02/2023 2 [place] [employer] Miguel Sepulveda [id number] Miguel Sepulveda 02/02/2023 1 [id number] Miguel Sepulveda [id number] Miguel Sepulveda Notes Date Note Type Note Provider Name and Address Organization Details Recorded Time 02/02/2023 text/html HPI Notes: 87 yo male with history of DM (type), CKD (stage 3), severe aortic stenosis, CABGx3, OSWALDO, GERD, cognitive impairment, DVTs (on Eliquis) and BPH - presents for evaluation for recurrent UTIs. Symptoms with UTI - mental confusion and urinary frequency / urgency. + Family hx of Prostate cancer - uncle. - s/p Green-light Laser TURP - December [address] Coyne He voids every 2-3 hours during the day and 0x/night. He notes slow stream. He denies hesitancy, urgency, or dysuria currently. He has trouble erectile dysfunction - no erections. He wears Depends (has occasional episodes of fecal incontinence). - UA - unable to give a urine sample today - PVR = 81 mL ____ PSA - 0.21 (01/29/08) - 0.26 (06/05/09) - 0.26 (09/11/10) - 0.33 (08/15/12) - 0.38 (01/17/15) UCx (07/02/21) - E.coli (R - Cipro/Levaquin, Bactrim) - Proteus (R - Nitrofurantoin) UCx (07/16/21) - E.coli (R - Cipro/Levaquin, Bactrim) - Proteus (R - Nitrofurantoin) UCx (10/26/21) - E.coli (R - Cipro/Levaquin, Bactrim) - Proteus (R - Nitrofurantoin) UCx (11/20/21) - E.coli (R - Cipro/Levaquin, Bactrim) UCx (11/09/22) - Pseudomonas UCx (12/24/22) - negative Nicolas Reyez MD [address] [place] [address],[place] [address], [place], [address], [facility] 02/02/2023 23:58:47
--- OUTSIDE RECORDS SUMMARY | 2023-10-07 10:45 | XMS_ITS | Continuity of Care Document ---
Author Name Unknown Organization [facility] Address [address] [place] [id number] Phone Care Team Providers Care Reducing System Operator Name Role Phone Karl Warren MD Unavailable Unavailable Allergies, Adverse Reactions, Alerts Substance Reaction Status Criticality sitagliptin Rash Active No Information atorvastatin Muscle weakness Active No Informati on Medications Medication Instructions Dosage Effective Dates (start - stop) Status Comments VITAMIN D2 (unknown strength) Not Available - Active GLIPIZIDE (unknown strength) Not Available - Active METFORMIN HCL (unknown strength) Not Available - Active CLOTRIMAZOLE-BETAMETHA SONE (unknown strength) Not Available - Active ASPIRIN (unknown strength) Not Available - Active Procedures Procedure Date Office/Outpatient Visit,Rigoberto [facility] [place]-Ray Exam Lwr Spine, Min 4 Views Office consultation, low Advance Directives Directive Yes / No Effective Date File Name No Information Encounters Encounter Description Practice Location Reason(s) For Visit Diagnoses Date Provider Providers Copied on Encounter [facility], [address], [place], [place], [id number], [place] tel:[phone] [facility] No Information Briana Barajas. [facility], [address] [place] [address], [address], [place], [id number] , [place]. tel:[phone] Office/Outpat ient Visit,[facility], [address], [place], [place], [id number], [place] tel:[phone] [facility] Spinal stenosis, lumbar regionLow back painSpondylol isthesis, lumbar region Briana Barajas. [facility], [address], [address], [place], [place], [id number] , [place]. tel:[phone] Referring Provider: Karl Yoon, [facility] [address], [address], [place], [address] . tel:[phone] Office consultation, low Z [facility], [address], [place], [address], [place] tel:[phone] [facility] No Information David Vidal. [facility], [address], [address], [place], [place], [id number] , [place]. tel:[phone] Referring Provider: Derek Lindsay, [address], [place], [address]. tel:[phone] Family History Family Member Type Diagnosis Age At Onset No Information Payers Payer name Insurance type Covered libertarian ID Authoriza ticoleen(s) [employer] [facility] [id number] Social History Type Description Quantity Date Captured [...]
== END 2023-10-03 19:04 | disposition home or self-care (01) ==
LOC: AMB 10-07 10:43
PROVIDERS: PCP Surgery; Visit Provider Family Medicine
DX: R53.1 Weakness (principal)
CPT/HCPCS: A0998

== ENCOUNTER 2023-10-18 17:20 | Outpatient (CLI) | payer BC, SELFPAY ==
--- OUTSIDE RECORDS SUMMARY | 2023-10-20 05:46 | XMS_ITS | Data Portability ---
Author Name Unknown Address [address] [place] [address] Phone [phone] Organization [facility], [facility] Address [address] [place] [address] Assessment No assessment recorded. Plan of Treatment Reminders Order Date Submit Date Provider Last Modified By Organization Details Last Modified Time Details Appointments None recorde d. Lab culture , urine 023 02/03/20 23 [email or web address] 0 [facility], [address], [place], [address], 3 09:11:16 Referral None recorde d. Procedures [...] Recorded Time Bladder Scan completed Suraj gaytan [facility] 02/02/2023 12:46:21 Imaging Results [...] Updated DateTime 02/02/2023 180.34 cm 29 kg/m2 [address]209.[address] [facility] 02/02/2023 12:42:31 Social History Question Answer Notes LastModified by Organizat ion Details LastModified Time Tobacco Smoking Status Never Smoker Suraj Moran [facility] 02/02/2023 12:45:10 What Is Your Level [...] History Nothing Reported. Medical History Condition Response Other N High Blood Pressure Y Depression N Diabetes Y Bleeding Disorder N Cancer N High Cholesterol Y Immunizations Vaccine Type Date Status Provider Name and Address Organization Details Recorded Time COVID-19, mRNA, LNP-S, PF, 100 mcg/0.5mL dose or 50 mcg/0.25mL dose 11/11/2020 completed Cari gaytan [facility] 08/22/2023 08:50:18 COVID-19, mRNA, LNP-S, PF, 100 mcg/0.5mL dose or 50 mcg/0.25mL dose 12/11/2020 completed Cari gaytan [facility] 08/22/2023 08:50:18 COVID-19, mRNA, LNP-S, PF, 30 mcg/0.3 mL dose 08/10/2021 completed Cari Allar null, [facility] 08/22/2023 08:50:18 pneumococcal polysaccharide PPV23 02/02/2008 completed Cari Allar null, [facility] 08/22/2023 08:50:18 Tdap 08/15/2012 completed Cari Allar null, [facility] 08/22/2023 08:50:18 Novel [id number], all formulations 11/12/2009 completed Cari Allar null, [facility] 08/22/2023 08:50:18 Influenza, seasonal, injectable 08/15/2012 completed Cari Allar null, [facility] 08/22/2023 08:50:18 Influenza, seasonal, injectable 08/19/2006 completed Cari Allar null, [facility] 08/22/2023 08:50:18 Influenza, seasonal, injectable 09/12/2008 completed Cari Allar null, [facility] 08/22/2023 08:50:18 Influenza, seasonal, injectable, preservative free 11/12/2009 completed Cari Allar null, [facility] 08/22/2023 08:50:18 Td (adult), 2 Lf tetanus toxoid, preservative free, adsorbed 02/02/2008 [facility] 08:50:18 Td (adult), 2 Lf tetanus toxoid, preservative free, adsorbed 03/12/2009 completed Cari Allar null, [facility] 08/22/2023 08:50:18 Past Encounters Encounter ID Performer Location Encounter Start Date Encounter Closed Date Diagnosis/Indication [id number] Nicolas Reyez MD [facility] [address] [place] [address] 02/02/2023 11:36:54 02/09/2023 15:53:05 Recurrent urinary tract infection Health Concerns Section Related Observation LastModified by Organization Detai ls LastModified Time None Recorded Concern Status LastModified by Organization Details LastModified Time None Recorded Advance Directives Directive None Recorded Payers Encounter Date Sequence Insurance Name Policy Number Policy Adkins Covered Member ID Adkins Member ID Guarantor Name 02/02/2023 2 [place] [employer] Miguel Sepulveda [id number] Miguel Sepulveda 02/02/2023 1 [place] Miguel Sepulveda [id number] Miguel Sepulveda Notes Date Note Type [...] UCx (12/24/22) - negative Nicolas Reyez MD [address] [place] [address],[address], [place], [address], [facility] 02/02/2023 23:58:47
--- OUTSIDE RECORDS SUMMARY | 2023-10-20 05:46 | XMS_ITS | Clinical Summary ---
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 06/16/2016 04/17/2019 Sleep [...] Type Department Care Team Description 10/18/2023 Refill [facility] [place] [address] [place] [address] Alec Nguyen MD Refill Request (Citalopram) 10/11/2023 Telephone [facility] [place] [address] [place] [address] Doug Moralez MD Questions (CPAP MACHINE) 09/09/2023 Telephone [facility] [place] [address] [place] [address] Doug Moralez MD DME Supply (C-PAP) 08/04/2023 Orders Only [facility] Scanner 1 scan: (1-Ord) [facility], CT ANGIO CHEST PE PROTOCOL, 08/04/2023 08/03/2023 Orders Only [facility] Scanner 1 scan: (1-Ord) [facility], XR CHEST 2V, 08/03/2023 from Last 3 [...] T Respiratory Rate 20 10/08/2019 1:14 PM GEM SETTER Oxygen Saturation 98% 04/19/2023 1:28 PM CDT Inhaled Oxygen Concentration - - Weight 100.7 kg (222 lb) 02/10/2023 3:20 PM CDT home weight Height 177.8 cm (5' 10) 10/12/2022 2:14 PM GEM SETTER Body Mass Index 31.85 10/12/2022 2:14 PM GEM SETTER Plan of Treatment Upcoming Encounters Date Type Department Care Team (Late st Contact Info) Description 11/08/2023 1:30 PM GEM SETTER Cardiac Device Check [facility] [place] [facility] [address] [place] [id number] 01/05/2024 1:30 PM CDT Telemedicine [facility] [place] [address] [place] [address] Doug Moralez MD [address] [place] [address] Health Maintenance Due Date Last Done Comments [...] Associated Diagnosis Comments SCAN-CT INTERPRETATION 12:00 AM GEM SETTER SCAN-RADIOLOGY REPORT 08/03/2023 12:00 AM GEM SETTER from Last 3 Months Results * SCAN-CT INTERPRETATION (08/04/2023 12:00 AM GEM SETTER) Anatomical Region Laterality Modality Other Scanner OTHER * SCAN-RADIOLOGY REPORT (08/03/2023 12:00 AM GEM SETTER) Anatomical Region Laterality Modality Other Scanner OTHER from Last 3 Months Advance Directives Documents on File Type Date Recorded 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 08/15/12
--- OUTSIDE RECORDS SUMMARY | 2023-10-20 05:46 | XMS_ITS | Continuity of Care Document ---
Author Name Unknown Organization [facility] Address [address] [place] [id number] Phone Care Team Providers Care Sql Server Dba Developer Name Role Phone Karl Warren MD Unavailable [...] Copied on Encounter [facility], [address], [place], [place], [id number], [place] tel:[phone] [facility] No Information Briana Barajas. [facility] [place], [address] [place] [address], [address], [place], [id number] , [place]. tel:[phone] Office/Outpat ient Visit,[facility], [address], [place], [place], [id number], tel:[phone] [facility] Spinal stenosis, lumbar regionLow back painSpondylol isthesis, lumbar region Briana Barajas. [facility], [address], [address], [place], [place], [id number] , [place]. tel:[phone] Referring Provider: Karl Yoon, [facility] [address], [address], [place], [address] . tel:[phone] Office consultation, low Z [facility], [address], [place], [address], [place] tel:[phone] [facility] No Information David Vidal. [facility], [address], [address], [place], [place], [id number] , [place]. tel:[phone] Referring Provider: Derek Lindsay, [address], [place], [address]. tel:[phone] Family History Family Member Type Diagnosis Age At Onset No Information Payers Payer name Insurance type Covered democrat ID Authoriza ticoleen(s) [employer] [facility] [place] [id number] Social History Type Description Quantity Date Captured [...]
== END 2023-10-18 17:21 | disposition home or self-care (01) ==
LOC: AMB 10-20 05:43
PROVIDERS: PCP Surgery; Visit Provider Emergency Medicine Emergency Medical Services
DX: R06.09 Other forms of dyspnea (principal)
CPT/HCPCS: A0425; A0427

== ENCOUNTER 2023-10-18 17:40 | Emergency (ER) | payer BC, SELFPAY ==
[2023-10-18 17:48] VITALS: BP 129/93; PULSE 81; RESP 20; TEMP 36.4; O2SAT 95; BMI 30.1
--- NOTE | 2023-10-18 17:51 | ED_ITS ---
HPI - General Adult General Date Seen: 10/18/23 Chief complaint: Weakness Stated complaint: Weakness Time Seen by Provider: 10/18/23 17:47 Source: family and EMS Mode of arrival: EMS Limitations: no limitations History of Present Illness HPI narrative: Patient is an 88-year-old male history of dementia, Parkinson's disease, severe aortic stenosis presenting to the emergency department for an episode of weakness. Is on hospice for his aortic stenosis. He was unable to get off the toilet due to weakness increased shaking. He states he felt like he was going the denied. Similar episode happened a few months ago and he was discharged after an overnight stay in the hospital. Was started on hospice shortly after that. Family states he has been declining and the has a bosselated do not believe he is safe at home with his . They live in an apartment but did not have enough help with him up. BUN does have a hospice nurse that comes in to see him. Related Data Home Medications Medication Instructions Recorded Confirmed acetaminophen 500 mg tablet 500 - 1,000 mg PO Q6H PRN 09/13/22 08/03/23 apixaban 2.5 mg tablet (Eliquis) 2.5 mg PO BID 09/13/22 08/03/23 citalopram 10 mg tablet 10 mg PO DAILY 09/13/22 08/03/23 diphenhydramine 25 1 tab PO QHS 09/13/22 08/03/23 mg-acetaminophen 500 mg tablet (Tylenol PM Extra Strength) metformin 850 mg tablet 850 mg PO DAILY 09/13/22 08/04/23 rosuvastatin 5 mg tablet 5 mg PO HS 09/13/22 08/03/23 nitroglycerin 0.4 mg sublingual 0.4 mg sublingual Q5M PRN 09/14/22 08/03/23 tablet carvedilol 3.125 mg tablet 3.125 mg PO BID 08/04/23 08/04/23 Previous Rx's Medication Instructions Recorded carbidopa 25 mg-levodopa 100 mg 1 tab PO TIDWM #90 tabs 09/18/22 tablet sennosides 8.6 mg-docusate sodium 1 tab PO BID PRN #60 tabs 09/18/22 50 mg tablet (Stool Softener-Laxative) Allergies Allergy/AdvReac Type Severity Reaction Status Date / Time No Known Drug Allergies Allergy Verified 08/03/23 21:18 Review of Systems Status of ROS: Reports: 10 or more systems reviewed and unremarkable except as noted in History and [facility] History Anticoagulated by anticoagulation treatment ?Z79.01 - alf (current) use of anticoagulants (ICD-10) Severe aortic stenosis ?I35.0 - Nonrheumatic aortic (valve) stenosis (ICD-10) Cognitive impairment ?R41.89 - Other symptoms and signs involving cognitive functions and awareness (ICD-10) Weakness ?R53.1 - Weakness (ICD-10) Abnormal echocardiogram ?R93.1 - Abnormal findings on diagnostic imaging of heart and coronary circulation (ICD-10) Heart murmur ?R01.1 - Cardiac murmur, unspecified (ICD-10) Parkinsonian features ?R25.9 - Unspecified abnormal involuntary movements (ICD-10) Health care directive on file ?Z78.9 - Other specified health status (ICD-10) DVT of upper extremity (deep vein thrombosis) ?I82.629 - Acute embolism and thrombosis of deep veins of unspecified upper extremity (ICD-10) Spinal stenosis ?M48.00 - Spinal stenosis, site unspecified (ICD-10) Osteoarthritis ?M19.90 - Unspecified osteoarthritis, unspecified site (ICD-10) Diabetes ?E11.9 - Type 2 diabetes mellitus without complications (ICD-10) Hyperlipidemia ?E78.5 - Hyperlipidemia, unspecified (ICD-10) Hypertension ?I10 - Essential (primary) hypertension (ICD-10) OSWALDO (obstructive sleep apnea) ?G47.33 - Obstructive sleep apnea (adult) (pediatric) (ICD-10) Pacemaker ?Z95.0 - Presence of cardiac pacemaker (ICD-10) Colitis ?K52.9 - Noninfective gastroenteritis and colitis, unspecified (ICD-10) NSTEMI (non-ST elevated myocardial infarction) ?I21.4 - Non-ST elevation (NSTEMI) myocardial infarction (ICD-10) Diverticulitis ?K57.92 - Diverticulitis of intestine, part unspecified, without perforation or abscess without bleeding (ICD-10) Surgical History S/P small bowel resection ?Z90.49 - Acquired absence of other specified parts of digestive tract (ICD- 10) H/O hernia repair ?Z98.890 - Other specified postprocedural states (ICD-10) ?Z87.19 - Personal history of other diseases of the digestive system (ICD-10) S/P cholecystectomy ?Z90.49 - Acquired absence of other specified parts of digestive tract (ICD- 10) S/P CABG x 3 ?Z95.1 - Presence of aortocoronary bypass graft (ICD-10) Social History Narrative: Lives with at [address]. 3 grown children. No ETOH, no tobacco use. 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 DNR/DNI What is your current living situation?: I presently have a place to live Problems where you live: no known problems Problems where you live details: n/a In the past 12 months, utilities in danger of being shut off: no In past 12 months, lack of transportation kept you from medical appts, meetings, work, or getting things needed for daily living: no In the past 12 mos, have been you worried that your food would run out before you had money to buy more?: never true In the past 12 mos, the food you bought just didn't last and you didn't have money to buy more?: never true Highest level of school completed/degree received: 11th grade Smoking Status: Former smoker What tobacco products do you use: cigarettes Years smoked: 20 Smoking quit date/years: >15 years ago, cigars and pipe Do you use any of these nicotine containing products: None Second hand tobacco smoke exposure: No How often do you have a drink containing alcohol: never How often do you have six or more drinks on one occasion: Never AUDIT-C Alcohol total score: 0 Non-prescribed substance use: denies use Caffeine: Yes (Coffee) How often does anyone, including family, friends and others, physically hurt you : never How often does anyone, including family, friends and others, insult or talk down to you: never How often does anyone, including family, friends and others, threaten you with harm: never How often does anyone, including family, friends and others, scream or curse at you: never service: Yes Exam Narrative: Exam Narrative: Const: Well-nourished, Well-developed, in no distress Eyes: PERRL, no conjunctival injection, and symmetrical lids HENT: Atraumatic external nose and ears. Moist mucous membranes. Neck: Symmetric, trachea midline, No thyromegaly. CVS: RRR, No murmurs or gallops. Peripheral pulses 2+ and equal in all extremities RESP: Unlabored respiratory effort. Clear to auscultation bilaterally. GI: Nontender/Nondistended, No rebound or guarding. MSK:Extremities w/o deformity, Normal Active ROM Skin: Warm, Dry. No rashes or lesions. Neuro: Normal Muscle tone, No focal neurological deficits. Psych: Awake, Alert, & Oriented x3. Appropriate mood and affect. Const: Vital Signs, click to edit/add: Vital Signs - 24 hr 10/18/23 17:48 Temperature 97.5 F L Pulse Rate [Pulse Oximeter] 81 Respiratory Rate 20 Blood Pressure [Ri ght Upper Arm] 129/93 H Pulse Oximetry 95 Oxygen Delivery Me thod Room Air Course Vital Signs Vital signs: Initial Vital Signs Temperature 97.5 F L 10/18/23 17:48 Temperature Source Temporal Artery Scan 10/18/23 17:48 Pulse Rate 81 10/18/23 17:48 Respiratory Rate 20 10/18/23 17:48 Blood Pressure 129/93 H 10/18/23 17:48 Blood Pressure Mean 105 10/18/23 17:48 Pulse Oximetry 95 10/18/23 17:48 Oxygen Delivery Method Room Air 10/18/23 17:48 Vital Signs Temperature 97.5 F L 10/18/23 17:48 Pulse Rate 81 10/18/23 17:48 Respiratory Rate 20 10/18/23 17:48 Blood Pressure 129/93 H 10/18/23 17:48 Pulse Oximetry 95 10/18/23 17:48 Oxygen Delivery Method Room Air 10/18/23 17:48 Temperature 97.5 F L 10/18/23 17:48 Pulse Rate 81 10/18/23 17:48 Respiratory Rate 20 10/18/23 17:48 Blood Pressure 129/93 H 10/18/23 17:48 Pulse Oximetry 95 10/18/23 17:48 Oxygen Delivery Method Room Air 10/18/23 17:48 Medical Decision Making MDM Narrative Medical decision making narrative: Patient is an 88-year-old male presenting to emergency department for weakness. He is a hospice patient. Since he is on hospice family does not want further workup done. He is otherwise back to his baseline. They are asking my possible admission because they feel like he is too weak at home and believe he needs long-term placement. After several phone calls with [facility] and nursing staff, our hospitalist, administration I have been informed that while the patient can be admitted under observation and stay on hospice we are not allowed to admit the patient even for observation until they are taking off hospice. Family does not want him taken off hospice and thus will be okay with being discharged home and will speak with [facility] in the morning about placement. Discharge Plan Discharge Clinical Impression: Weakness Patient Disposition: Home w/ Parent or Adult Condition: Stable Instructions: How to Get a Person out of Bed (DC) Additional Instructions: Talk to [facility] tomorrow about long-term placement. Prescriptions: No Action acetaminophen 500 mg tablet 500 - 1,000 mg PO Q6H PRN Eliquis 2.5 mg tablet 2.5 mg PO BID citalopram 10 mg tablet 10 mg PO DAILY metformin 850 mg tablet 850 mg PO DAILY diphenhydramine-acetaminophen [Tylenol PM Extra Strength] 25-500 mg tablet 1 tab PO QHS rosuvastatin 5 mg tablet 5 mg PO HS nitroglycerin 0.4 mg tablet, sublingual 0.4 mg sublingual Q5M PRN Rx Instructions: do not exceed 3 doses per episode carbidopa-levodopa 25-100 mg Tablet 1 tab PO TIDWM Qty: 90 0RF sennosides-docusate sodium [Stool Softener-Laxative] 8.6-50 mg Tablet 1 tab PO BID PRNQty: 60 0RF carvedilol 3.125 mg tablet 3.125 mg PO BID Follow Up/Referrals: Alec Nguyen MD [Primary Care Provider] - Stand Alone Forms: [employer] Info Instructions
--- OUTSIDE RECORDS SUMMARY | 2023-10-18 18:56 | XMS_ITS | Continuity of Care Document ---
Author Name Unknown Organization [facility] Address [address] [place] [address] Phone Care Team Providers Care Kiln Car Repairer Name Role Phone Karl Warren MD Unavailable [...] Copied on Encounter [facility], [address], [place], [place], [id number], [place] tel:[phone] [facility] No Information Briana Barajas. [facility], [address] [place] [address], [address], [place], [id number] , [place]. tel:[phone] Office/Outpat ient Visit,[facility], [address], [place], [place], [id number], tel:[phone] [facility] Spinal stenosis, lumbar regionLow back painSpondylol isthesis, lumbar region Briana Barajas. [facility], [address], [address], [place], [place], [id number] , [place]. tel:[phone] Referring Provider: Karl Yoon, [facility] [address], [address], [place], [address] . tel:[phone] Office consultation, low Z [facility], [address], [place], [address], [place] tel:[phone] [facility] No Information David Vidal. [facility], [address], [address], [place], [place], [id number] , [place]. tel:[phone] Referring Provider: Derek Lindsay, [address], [place], [address]. tel:[phone] Family History Family Member Type Diagnosis Age At Onset No Information Payers Payer name Insurance type Covered alliance party ID Authoriza ticoleen(s) [employer] [facility] MB [id number] Social History Type Description Quantity Date Captured [...]
--- OUTSIDE RECORDS SUMMARY | 2023-10-18 18:56 | XMS_ITS | Data Portability ---
Author Name Unknown Address [address] [place] [address] Phone [phone] Organization [facility], [facility] Address [address] [place] [address] Assessment No assessment recorded. Plan of Treatment Reminders Order Date Submit Date Provider Last Modified By Organization Details Last Modified Time Details Appointments None recorde d. Lab culture , urine 023 02/03/20 23 [email or web address] 0 [facility], [address], [place], [address], 3 09:11:16 Referral None recorde d. Procedures [...] Recorded Time Bladder Scan completed Suraj gaytan [facility] 02/02/2023 12:46:21 Imaging Results Imaging Date [...] Updated DateTime 02/02/2023 180.34 cm 29 kg/m2 66453.21 g Suraj Moran [facility] 02/02/2023 12:42:31 Social History Question Answer Notes LastModified by Organizat ion Details LastModified Time Tobacco Smoking Status Never Smoker Suraj Moran [facility] 02/02/2023 12:45:10 What Is Your Level Of [...] 50 mcg/0.25mL dose 11/11/2020 completed Cari gaytan [facility] 08/22/2023 08:50:18 COVID-19, mRNA, LNP-S, PF, 100 mcg/0.5mL dose or 50 mcg/0.25mL dose 12/11/2020 completed Cari gaytan [facility] 08/22/2023 08:50:18 COVID-19, mRNA, LNP-S, PF, 30 mcg/0.3 mL dose 08/10/2021 completed Cari Allar null, [facility] 08/22/2023 08:50:18 pneumococcal polysaccharide PPV23 02/02/2008 completed Cari Allar null, [facility] 08/22/2023 08:50:18 Tdap 08/15/2012 completed Cari Allar null, [facility] 08/22/2023 08:50:18 Novel [id number], all formulations 11/12/2009 completed Cari Allar null, [facility] 08/22/2023 08:50:18 Influenza, seasonal, injectable 08/15/2012 completed Cari Allar null, [facility] 08/22/2023 08:50:18 Influenza, seasonal, injectable 08/19/2006 completed Cari Allar null, [facility] 08/22/2023 08:50:18 Influenza, seasonal, injectable 09/12/2008 completed Cari Allar null, [facility] 08/22/2023 08:50:18 Influenza, seasonal, injectable, preservative free 11/12/2009 completed Cari Allar null, [facility] 08/22/2023 08:50:18 Td (adult), 2 Lf tetanus toxoid, preservative free, adsorbed 02/02/2008 [facility] 08:50:18 Td (adult), 2 Lf tetanus toxoid, preservative free, adsorbed 03/12/2009 completed Cari Allar null, [facility] 08/22/2023 08:50:18 Past Encounters Encounter ID Performer Location Encounter Start Date Encounter Closed Date Diagnosis/Indication [id number] Nicolas Reyez MD [facility] [address] [place] [address] 02/02/2023 11:36:54 02/09/2023 15:53:05 Recurrent urinary tract infection Health Concerns Section Related Observation LastModified by Organization Detai ls LastModified Time None Recorded Concern Status LastModified by Organization Details LastModified Time None Recorded Advance Directives Directive None Recorded Payers Encounter Date Sequence Insurance Name Policy Number Policy Adkins Covered Member ID Adkins Member ID Guarantor Name 02/02/2023 2 [place] [employer] Miguel Sepulveda [id number] Miguel Sepulveda 02/02/2023 1 [id number] Miguel Sepulveda [id number] Miguel Sepulveda Notes Date Note Type [...] UCx (12/24/22) - negative Nicolas Reyez MD [address] [place] [address],[address], [place], [address], [facility] 02/02/2023 23:58:47
--- OUTSIDE RECORDS SUMMARY | 2023-10-18 18:56 | XMS_ITS | Clinical Summary ---
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 06/16/2016 04/17/2019 Sleep [...] Encounters Date Type Department Care Team Description 10/18/2023 Refill [facility] [address] [place] [address] Alec Nguyen MD Refill Request (Citalopram) 10/11/2023 Telephone [facility] [address] [place] [address] Doug Moralez MD Questions (CPAP MACHINE) 09/09/2023 Telephone [facility] [address] [place] [address] Doug Moralez MD DME Supply (C-PAP) 08/04/2023 Orders Only [facility] Scanner 1 scan: (1-Ord) [facility], CT ANGIO CHEST PE PROTOCOL, 08/04/2023 08/03/2023 Orders Only [facility] Scanner 1 scan: (1-Ord) [facility], XR CHEST 2V, 08/03/2023 from Last 3 Months Immunizations Name Administration Dates Next Due COVID-19 vaccine (Moderna 100mcg/0.5mL) PF MDV 12/11/2020,11/10/2020 COVID-19 vaccine (Pfizer-Bio NTech 30mcg/0.3mL) PFMILLIE 08/10/2021 Influenza A (H1N1), Inactiva meliza (Age [...] T Respiratory Rate 20 10/08/2019 1:14 PM OFFC SPEC Oxygen Saturation 98% 04/19/2023 1:28 PM CDT Inhaled Oxygen Concentration - - Weight 100.7 kg (222 lb) 02/10/2023 3:20 PM CDT home weight Height 177.8 cm (5' 10) 10/12/2022 2:14 PM OFFC SPEC Body Mass Index 31.85 10/12/2022 2:14 PM OFFC SPEC Plan of Treatment Upcoming Encounters Date Type Department Care Team (Late st Contact Info) Description 11/08/2023 1:30 PM OFFC SPEC Cardiac Device Check [facility] [place] [facility] [address] [place] [id number] 01/05/2024 1:30 PM CDT Telemedicine [facility] [address] [place] [address] Doug Moralez MD [address] [place] [address] Health Maintenance Due Date Last Done Comments [...] Associated Diagnosis Comments SCAN-CT INTERPRETATION 12:00 AM OFFC SPEC SCAN-RADIOLOGY REPORT 08/03/2023 12:00 AM OFFC SPEC from Last 3 Months Results * SCAN-CT INTERPRETATION (08/04/2023 12:00 AM OFFC SPEC) Anatomical Region Laterality Modality Other Scanner OTHER * SCAN-RADIOLOGY REPORT (08/03/2023 12:00 AM OFFC SPEC) Anatomical Region Laterality Modality Other Scanner OTHER from Last 3 Months Advance Directives Documents on File Type Date Recorded 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 08/15/12
--- NOTE | 2023-10-18 19:14 | ED.NURSE ---
[facility]
--- NOTE | 2023-10-18 20:46 | ED.NURSE ---
in room to discuss plan with pt and pt's family. Pt's family states they would like to bring pt home tonight. finalizing d/c paperwork.
== END 2023-10-18 21:01 | disposition home or self-care (01) ==
PROVIDERS: Emergency Provider Student in an Organized Health Care Education/Training Program; PCP Surgery
DX: R53.1 Weakness (principal)
CPT/HCPCS: 99282; 99283

== ENCOUNTER 2024-02-08 11:55 | Outpatient (REF) | payer BC, SELFPAY ==
--- OUTSIDE RECORDS SUMMARY | 2024-02-08 11:57 | XMS_ITS | Continuity of Care Document ---
Author Name Unknown Organization [facility] Address [address] [place] [phone] Phone Care Team Providers Care Ict Support Technicians Name Role Phone Karl Warren MD Unavailable [...] Copied on Encounter [facility], [address], [place], [place], [id number], [place] tel:[phone] [facility] No Information Briana Barajas. [facility] [place], [address] [place] [address], [address], [place], [id number] , [place]. tel:[phone] Office/Outpat ient Visit,[facility], [address], [place], [place], [id number], tel:[phone] [facility] Spinal stenosis, lumbar regionLow back painSpondylol isthesis, lumbar region Briana Barajas. [facility], [address], [address], [place], [place], [id number] , [place]. tel:[phone] Referring Provider: Karl Yoon, [facility] [address], [address], [place], [address] . tel:[phone] Office consultation, low Z [facility], [address], [place], [address], [place] tel:[phone] [facility] No Information David Vidal. [facility], [address], [address], [place], [place], [id number] , [place]. tel:[phone] Referring Provider: Derek Lindasy, [address], [place], [address]. tel:[phone] Family History Family Member Type Diagnosis Age At Onset No Information Payers Payer name Insurance type Covered libertarian ID Authoriza ticoleen(s) [employer] [facility] [place] [id number] Social History Type Description Quantity Date Captured [...]
--- OUTSIDE RECORDS SUMMARY | 2024-02-08 11:58 | XMS_ITS | Clinical Summary ---
Author Name Unknown Organization [facility] Address [place], [place] [address] Care Team Providers Care Shoe Laster Name Role Phone Staff, Other Clinical Unavailable Alec Jurado MD Primary Care Provider [phone] Allergies Active Allergy Reactions Criticality Noted Date [...] neurogenic claudication For home use. 1 Each 07/06/2022 Active Senna-S 8.6-50 mg tablet Take 1 Tablet by mouth 2 times daily if needed. 09/18/2022 Active metFORMIN (GLUCOPHAGE) 850 mg tabletIndications: Type 2 diabetes mellitus without complication, without long-term current use of insulin (HC) Take 1 Tablet (850 mg) by mouth once daily with a meal. 180 Tablet 3 10/29/2022 Active durable medical equipment (DME)Indications:U nsteadiness on feet Gait belt for unsteadiness on feet. 1 Each 01/05/2023 Active nystatin powder (Nyamyc) powderIndications: Yeast infection of the skin Apply topically to affected area(s) 3 times daily. 60 g 1 01/31/2023 Active carvediloL (COREG) 3.125 mg tablet carvedilol 3.125 mg tablet TAKE ONE TABLET BY MOUTH TWICE A DAY WITH MEALS Active carbidopa-levodopa , 25-100 mg, (SINEMET 25-100) 25-100 mg tablet carbidopa 25 mg-levodopa 100 mg tablet TAKE ONE TABLET BY MOUTH THREE TIMES DAILY WITH MEALS Active diphenhydrAMINE-ac etaminophen 25-500 mg (TYLENOL PM) 25-500 mg tabletIndications: Spinal stenosis of lumbar region without neurogenic claudication Take 1 Tablet by mouth at bedtime. 90 Tablet 3 02/10/2023 Active Graduated Compression StockingsIndicatio ns:Bilateral lower extremity edema For personal use. Length: calf Strength: 16-20 mmHg Circumference in cm: For calf: Ankle 8, Calf 41, Ankle to calf length 39 cm. 1 Packet 02/10/2023 Active durable medical equipment (DME)Indications:S donovan stenosis of lumbar region without neurogenic claudication,Bilat eral lower extremity edema Compression stocking Donning device. 1 Each 02/10/2023 Active rosuvastatin (CRESTOR) 5 mg tabletIndications: [...] 24 HOURS INCLUDING TYLENOL PM. 100 Tablet 05/04/2023 Active BenadryL 2 % topical gelIndications:Itc elver Apply to affected area every 6 hours as needed for itching 103 mL 05/05/2023 Active apixaban (Eliquis) 2.5 mg tabletIndications: Acute deep vein thrombosis (DVT) of brachial vein of left upper extremity (HC) Take 1 Tablet (2.5 mg) by mouth two times daily. 60 Tablet 11 06/03/2023 Active citalopram (CELEXA) 10 mg tabletIndications: Anxiety TAKE ONE TABLET BY MOUTH EVERY DAY IN THE MORNING 90 Tablet 07/12/2023 Active Active Problems Problem Noted Date Diagnosed Date Anticoagulated by anticoagulation treatment 11/2022 Cognitive impairment 10/29/2022 Heart murmur 10/29/2022 Intermittent confusion 10/29/2022 Peripheral edema 10/29/2022 Severe aortic stenosis 10/29/2022 Health care directive on file 10/29/2022 Diverticulosis 10/29/2022 Overview: History of diverticulitis DVT of upper extremity (deep vein thrombosis) Atherosclerosis of [place] co ronary artery of [place] heart with angina pectoris 11/03/2021 Benign prostatic [...] 05/30/2018 12/02/2020 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 06/16/2016 04/17/2019 Sleep [...] Encounters Date Type Department Care Team Description 12/09/2023 Refill [facility] [address] [place] [address] Alec Nguyen MD Refill Request (Citalopram, Eliquis, Metformin, Rosuvastatin, Acetaminophen Pm) 11/10/2023 Telephone [facility] [address] [place] [address] Doug Moralez MD Questions from Last 3 Months Immunizations Name Administration Dates Next Due COVID-19 vaccine (Moderna 100mcg/0.5mL) MILLIE PAYTON 12/11/2020,11/10/2020 COVID-19 vaccine (Pfizer-Bio NTech 30mcg/0.3mL) MILLIE PAYTON 08/10/2021 Influenza A (H1N1), Inactiva meliza (Age [...] T Respiratory Rate 20 10/08/2019 1: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 Oxygen Saturation 98% 04/19/2023 1:28 PM CDT Inhaled Oxygen Concentration - - Weight 100.7 kg (222 lb) 02/10/2023 3:20 PM CDT home weight Height 177.8 cm (5' 10) 10/12/2022 2: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 Body Mass Index 31.85 10/12/2022 2: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 Plan of Treatment Upcoming Encounters Date Type Department Care Team (Late st Contact Info) Description 03/05/2024 Cardiac Device Check [facility] [phone] Health Maintenance Due Date Last Done Comments Zoster (shingles) series for age 50+ (1 of 2) 02/14/1986 Pneumococcal series for age 65+ (2 of 2 - PCV) 02/01/2009 02/02/2008 Tetanus booster 08/15/2022 08/15/2012, 02/24, 02/02/2008 Depression screening for age 12+ 02/23/2023 02/23/2022, 11/23/2021, 11/20/2021, Additional history exists Medicare Wellness for age 65+ 02/24/2023, 12/02/2020, 08/15/2012 COVID-19 vaccine series ( season) 2023 08/10/2021, 12/11/2020, 11/10/2020 BMI (ht and wt on same day) for age 18+ 10/12/2023 10/12/2022, 10/08/2019, 03/08/2019, Additional history exists Influenza for age 65+ 05/27/2024 08/15/2012 , 11/12/2009, 11/12/2009, Additional history exists Tdap Completed 08/15/2012 Advance Directives Documents on File Type Date Recorded Patient Torch Operator Expl anation Healthcare Directive 08/23/2016 12:00 AM * Full Code (Latest Code Status on File) Date Activated Date Inactivated Comments 05/30/2018 3:03 AM 06/01/2018 4:52 PM * Full Code Date Activated Date Inactivated Comments 08/25/2016 4:20 PM 08/26/2016 4:49 PM * Full Code Date Activated Date Inactivated Comments 08/23/2016 6:29 AM 08/24/2016 2:23 PM * Full Code Date Activated Date Inactivated Comments 06/22/2016 4:09 PM 06/28/2016 4:30 PM * Full Code Date Activated Date Inactivated Comments 06/16/2016 3:09 PM 06/22/2016 4:09 PM Care Teams Shoe Laster Relationship Specialty Start Date End Date Alec Nguyen MD [address] [place] [address] PCP - General Family Practice 07/31/14 Staff, Other Clinical . 08/15/12
[2024-02-08 13:07] LABS: Appearance Urine Clear (Clear); Bilirubin Urine Negative (Negative); Blood Urine Negative (Negative); Color Urine Yellow (Yellow); Glucose Urine Negative (Negative); Ketones Urine Negative (Negative); Leukocyte Esterase Urine Negative (Negative); Nitrite Urine Negative (Negative); Protein Urine Negative (Negative); Specific Gravity Urine 1.015 (1.000-1.030); Urobilinogen Urine 0.2 (0.2-1.0); pH Urine 5.5 (5.0-8.5)
[2024-02-08 13:16] LABS: RBC Urine 0-2 (0-2); WBC Urine 0-2 (0-5)
[2024-02-08 13:17] LABS: Amorphous Sediment Urine Few; Squamous Epithelial Cell Urine Few (None-Few)
== END 2024-02-08 11:56 | disposition home or self-care (01) ==
LOC: NPINS 11:55
PROVIDERS: PCP Surgery; Visit Provider Nurse Practitioner Gerontology
DX: R41.0 Disorientation, unspecified (principal)
CPT/HCPCS: 81001; 87086